=== PATIENT | male | born 1980 | race Caucasian/White ===

== ENCOUNTER 2016-08-22 22:10 | Emergency (ER) | payer MEDICARE, MEDICAID ==
[~2016-08-22] VITALS: Ht 175.3 cm; Wt 68.0 kg
[~2016-08-22 22:10] MED LIST: ACYCLOVIR 400M400 MG PO; AMOXICOT500 MG PO; AMOXIL500 MG PO; BACTRIM DS 8001 TAB PO; BACTROBAN2% TP; CIPRO 500MG TA500 MG PO; CLINDAMYCIN HC300 MG PO; DARVOCET-N 1001 EACH PO; ETODOLAC500 MG PO; FLONASE 50 MCG16 GM; HYDROCORT 1% CR30 GM TP; HYOSCYAMINE0.125 M6 SL; IBUPROFEN800 MG PO; KEFLEX 500MG.500 MG PO; LAMISIL AT JOCK IT1% TP; MEDROL 4MG. DOSE4 MG PO; MINOCYCLINE 10100 MG PO; MOTRIN600 M1 PO; NOMEDS *; NOMEDS XX; NYSTATIN OINTME15 G1 TP; PHENERGAN 25MG.25 M1 PO; PHENERGAN VC +120 ML PO; PREDNISONE20 MG PO; PROMETHAZINE D473 ML PO; QVAR8.7 G1 IH; SEPTRA DS 800 M1 TAB PO; STOMACH PILL PO; TESSALON PERLE100 M1 PO; TESSALON PERLE100 MG PO; TESSALON PERLE200 MG PO; TRAMADOL 50MG T50 MG PO; TYLENOL W/CODEI1 TA2 PO; VIBRAMYCIN 100100 MG PO; VOLTAREN75 MG PO; ZITHROMAX Z PA250 MG PO; ZYRTEC 10MG TAB10 MG PO; [UNRECOGNIZED DRUG - OTHER] TP
--- NOTE | 2016-08-22 23:03 | Emergency Room Report ---
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 N Clinical Suspician of Infection? N Mental Status: 1 - Regular (Normal Baseline) Sepsis Risk:Low Sepsis Risk Have you (or family members/close friends) recently traveled outside the [place]? N If Yes, where/when: Have you had exposure to infectious disease within the past month? N TB? Other? Specify: Source patient, RN notes reviewed, old records Exam Limitations no limitations Comment accidental injury to lt eyebrow hit with spoon with 0.5 cm lac - no eye involvement Cardiac Chest Pain Chest pain indicative of cardiac No Timing/Duration this evening Severity moderate ALLERGIES Coded Allergies: No Known Allergies (04/03/16) Home Medications Active Scripts Benzonatate (Tessalon Perle) 100 MG PO TID #15 SGL Prov: 07/07/16 History Medical History General CAD? No Angina: No [place]: No Hypertension? No Hyperlipidemia? No CHF? No DVT? No PE? No COPD? No Asthma? No Anemia? No GERD? No Gastric ulcers? No GI Bleed? No Hernia? No Thyroid Problems? No Hypothyroidism? No CVA? No Seizures? No Diabetes? No End Stage Renal Disease? No UTI? Yes Stones? No BPH? No GB Disease: No Nephritic Syndrome? No Asplenia? No Hepatitis? No Sickle Cell Disease? No Arthritis? No Migraines? No Cataracts? No Glaucoma? No MRSA? Yes HIV? No TB? No Anxiety? No Depression? No Cancer? No More? No Immunization Hx DT/Tetanus 01/16/12 Flu 2012-FSN Pneumonia Received In Past Surgical Hx Previous Surgery?Y LEFT HAND REPAIR TONGUE SX-STITCHES BILAT EAR TUBES ENDOSCOPY Family History Family Hx Diabetes Yes CAD No Hypertension No Hyperlipidemia No Cancer No TB No Social History Smoking Hx Smoker: Light Tobacco Smoker Tobacco: No Packs/day < 1 Pack Are you/the child exposed to second-hand smoke: No Alcohol Alcohol: No Drugs none Review of Systems All Other Systems Reviewed and Negative Constitutional denies fever Eyes denies drainage ENT denies: ear pain, epistaxis, throat pain. Respiratory denies cough, denies shortness of breath, denies wheezing Cardiovascular denies chest pain, denies palpitations, denies syncope Gastrointestinal denies abdominal pain, denies diarrhea, denies vomiting Genitourinary denies: dysuria, frequency, hesitancy, hematuria. Musculoskeletal denies back pain, denies joint pain, denies joint swelling, denies neck pain Skin see HPI, denies rash, other Psychiatric/Neurological denies seizure Physical Exam Vital Signs Vital Signs Date Time Temp Pulse Resp B/P Pulse O2 O2 Flow FiO2 Ox Delivery Rate 08/22 2257 84 20 134/84 99 08/22 2249 98.1 74 20 134/84 99 - WBC >12,000 or <4,000 or 10% bands? 2 or more SIRS Criteria Met? B/P:134/84 MAP:100 Creatinine >2.0? UA output<0.5ml/kg/hr for 2 hrs? Platelet count >100,000? Lactate >2.0mmol/1? INR >1.2 or PTT > than 60 sec? Evidence of Organ Dysfunction? Provider documented clinical suspician of infection? N Sepsis Criteria Count: 1 Sepsis Risk: Low Sepsis Risk General Appearance no apparent distress Eye Exam - bilateral eye PERRL, bilateral eye EOMI Ear, Nose, Throat normal ENT inspection Neck supple Respiratory Status No: respiratory distress. 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 No Procedures Laceration/Wound Repair Laceration/Wound Repair Risks/benefits discussed with pt/guardian? Yes Tetanus status up to date Wound Location face Wound Length (cm) 0.5 Wound's Depth, Shape superficial Wound Explored no FB identified Risk of retained FB explained to pt/guardian? Yes Irrigated w/ Saline (ccs) 0 Wound Prep Hibiclens, Saline Volume Anesthetic (ccs) 0 Wound Debrided none Wound Repaired With Dermabond Layer Closure No Total Number Sutures 0 Sterile Dressing Applied Yes Splint Applied No Sling Applied No Departure Departure Time of Disposition 2303 Disposition DC Home or Self Care(routine) Clinical Impression Primary Impression: Superficial laceration of face Condition STABLE Patient Instructions DI for Laceration Repair With Dermabond Additional Instructions see pcp if needed Discharge Counseling Counseled pt/family regarding diagnosis, test results, follow up needs ED Critical Care Critical Care No at [phone]
--- NOTE | 2016-08-22 23:03 | Emergency Room Report ---
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 N Clinical Suspician of Infection? N Mental Status: 1 - Regular (Normal Baseline) Sepsis Risk:Low Sepsis Risk Have you (or family members/close friends) recently traveled outside the [place]? N If Yes, where/when: Have you had exposure to infectious disease within the past month? N TB? Other? Specify: Source patient, RN notes reviewed, old records Exam Limitations no limitations Comment accidental injury to lt eyebrow hit with spoon with 0.5 cm lac - no eye involvement Cardiac Chest Pain Chest pain indicative of cardiac No Timing/Duration this evening Severity moderate ALLERGIES Coded Allergies: No Known Allergies (04/03/16) Home Medications Active Scripts Benzonatate (Tessalon Perle) 100 MG PO TID #15 SGL Prov: 07/07/16 History Medical History General CAD? No Angina: No [place]: No Hypertension? No Hyperlipidemia? No CHF? No DVT? No PE? No COPD? No Asthma? No Anemia? No GERD? No Gastric ulcers? No GI Bleed? No Hernia? No Thyroid Problems? No Hypothyroidism? No CVA? No Seizures? No Diabetes? No End Stage Renal Disease? No UTI? Yes Stones? No BPH? No GB Disease: No Nephritic Syndrome? No Asplenia? No Hepatitis? No Sickle Cell Disease? No Arthritis? No Migraines? No Cataracts? No Glaucoma? No MRSA? Yes HIV? No TB? No Anxiety? No Depression? No Cancer? No More? No Immunization Hx DT/Tetanus 01/16/12 Flu 2012-FSN Pneumonia Received In Past Surgical Hx Previous Surgery?Y LEFT HAND REPAIR TONGUE SX-STITCHES BILAT EAR TUBES ENDOSCOPY Family History Family Hx Diabetes Yes CAD No Hypertension No Hyperlipidemia No Cancer No TB No Social History Smoking Hx Smoker: Light Tobacco Smoker Tobacco: No Packs/day < 1 Pack Are you/the child exposed to second-hand smoke: No Alcohol Alcohol: No Drugs none Review of Systems All Other Systems Reviewed and Negative Constitutional denies fever Eyes denies drainage ENT denies: ear pain, epistaxis, throat pain. Respiratory denies cough, denies shortness of breath, denies wheezing Cardiovascular denies chest pain, denies palpitations, denies syncope Gastrointestinal denies abdominal pain, denies diarrhea, denies vomiting Genitourinary denies: dysuria, frequency, hesitancy, hematuria. Musculoskeletal denies back pain, denies joint pain, denies joint swelling, denies neck pain Skin see HPI, denies rash, other Psychiatric/Neurological denies seizure Physical Exam Vital Signs Vital Signs Date Time Temp Pulse Resp B/P Pulse O2 O2 Flow FiO2 Ox Delivery Rate 08/22 2257 84 20 134/84 99 08/22 2249 98.1 74 20 134/84 99 - WBC >12,000 or <4,000 or 10% bands? 2 or more SIRS Criteria Met? B/P:134/84 MAP:100 Creatinine >2.0? UA output<0.5ml/kg/hr for 2 hrs? Platelet count >100,000? Lactate >2.0mmol/1? INR >1.2 or PTT > than 60 sec? Evidence of Organ Dysfunction? Provider documented clinical suspician of infection? N Sepsis Criteria Count: 1 Sepsis Risk: Low Sepsis Risk General Appearance no apparent distress Eye Exam - bilateral eye PERRL, bilateral eye EOMI Ear, Nose, Throat normal ENT inspection Neck supple Respiratory Status No: respiratory distress. 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 No Procedures Laceration/Wound Repair Laceration/Wound Repair Risks/benefits discussed with pt/guardian? Yes Tetanus status up to date Wound Location face Wound Length (cm) 0.5 Wound's Depth, Shape superficial Wound Explored no FB identified Risk of retained FB explained to pt/guardian? Yes Irrigated w/ Saline (ccs) 0 Wound Prep Hibiclens, Saline Volume Anesthetic (ccs) 0 Wound Debrided none Wound Repaired With Dermabond Layer Closure No Total Number Sutures 0 Sterile Dressing Applied Yes Splint Applied No Sling Applied No Departure Departure Time of Disposition 2303 Disposition DC Home or Self Care(routine) Clinical Impression Primary Impression: Superficial laceration of face Condition STABLE Patient Instructions DI for Laceration Repair With Dermabond Additional Instructions see pcp if needed Discharge Counseling Counseled pt/family regarding diagnosis, test results, follow up needs ED Critical Care Critical Care No at [phone]
[2016-08-22 23:25] VITALS: BP 134/84
[2016-10-10] MEDS ORDERED: IMODIUM 2MG. CAP2 MG PO (12:49)
== END 2016-08-22 23:25 | disposition home or self-care (01) ==
LOC: ER 22:10
PROC: 0HQ1XZZ Repair Face Skin, External Approach (ICD-10-PCS; principal; 2016-08-22)
DX: S01.112A Laceration without foreign body of left eyelid and periocular area, initial encounter (principal); W22.8XXA Striking against or struck by other objects, initial encounter; Y92.009 Unspecified place in unspecified non-institutional (private) residence as the place of occurrence of the external cause
CPT/HCPCS: G0168

== ENCOUNTER → 2016-12-08 | Outpatient (CLI) | payer MEDICARE, MEDICAID ==
[~2016-12-08] MED LIST changes: +IMODIUM 2MG. CAP2 MG PO
--- NOTE | 2016-12-08 13:51 | RADIOLOGY REPORT PS360 ---
US RUQ-(ABD LTD)1ORGAN/QUAD/FU COMPARISON: None available HISTORY:Abdominal pain and tenderness, postprandial diarrhea ORDERING PHYSICIAN: Saul Villalobos MD PATIENT AGE: 36 years Sagittal, transverse and decubitus imaging of the gallbladder was performed. GALLBLADDER - No stones are evident. There is no gallbladder wall thickening. Common duct is normal in diameter. Small amount sludge present Liver: Unremarkable Pancreas: Incompletely evaluated due to overlying bowel gas Right kidney: Unremarkable appearing. No hydronephrosis. IMPRESSION: Small amount sludge within the gallbladder otherwise negative right upper quadrant ultrasound..
== END ==
LOC: RAD 08:18
DX: R10.11 Right upper quadrant pain (principal)

== ENCOUNTER 2017-03-28 10:56 | Emergency (ER) | payer MEDICARE, MEDICAID ==
[~2017-03-28] VITALS: Ht 172.7 cm; Wt 75.8 kg
--- NOTE | 2017-03-28 11:09 | Urgent Treatment Center Report ---
History of Present Issue Date/Time Seen by Provider 03/28/17 1109 Visit Reason Pt arrived:Walked Presenting Problem:PT STATES HE HAS A KNOT IN THE CENTER OF HIS ABDOMEN THAT HE NOTICED THIS MORNING Location if Accident: Onset of symptoms date/time:/ or onset unknown for:MEDICAL HX UNKNOWN Have you (or family members/close friends) recently traveled outside the [place]? N If Yes, where/when: Have you had exposure to infectious disease within the past month? TB? Other? Specify: c/o "a knot in my stomach". First noticed this morning when getting out of bed. hasn't noticed before. Very poor historian. Painful with cough. Cough x weeks associated w/ rhinorrhea, PND, sneezing, nasal congestion. Denies SOA, wheezing, sputum. + tobacco use. Unsure if hx of COPD. Unsure if febrile. Hasn't felt bad. Working without any problems. Unsure if he takes anything for breathing. Source patient Exam Limitations no limitations ALLERGIES Coded Allergies: No Known Allergies (09/14/16) History Medical History General CAD? No Angina: No [place]: No Hypertension? No Hyperlipidemia? No CHF? No DVT? No PE? No COPD? No Asthma? No Anemia? No GERD? No Gastric ulcers? No GI Bleed? No Hernia? No Thyroid Problems? No Hypothyroidism? No CVA? No Seizures? No Diabetes? No UTI? Yes Stones? No BPH? No GB Disease: No Nephritic Syndrome? No Asplenia? No Hepatitis? No Sickle Cell Disease? No Arthritis? No Migraines? No Cataracts? No Glaucoma? No MRSA? Yes HIV? No TB? No Anxiety? No Depression? No Cancer? No More? No Immunization HX DT/Tetanus Unknown Flu Refused Pneumonia Never Had Surgical Hx Previous Surgery?Y LEFT HAND REPAIR TONGUE SX-STITCHES BILAT EAR TUBES ENDOSCOPY Family History Family HX Diabetes Yes CAD No Hypertension No Hyperlipidemia No Cancer No TB No Social History Smoking Hx Smoker: Current Every Day Smoker Tobacco: Yes Type Cigarettes Packs/day < 1 Pack Alcohol Alcohol: No Review of Systems All Other Systems Reviewed and Negative Constitutional see HPI Eyes denies drainage ENT see HPI. denies: ear pain, ear discharge, throat pain, throat swelling. Respiratory see HPI Cardiovascular denies chest pain Gastrointestinal denies abdominal pain, denies diarrhea, denies nausea, denies vomiting Genitourinary denies: dysuria. Musculoskeletal denies other (aches) Skin denies rash Psychiatric/Neurological denies other (dizziness) Physical Exam Vital Signs Vital Signs Date Time Temp Pulse Resp B/P Pulse O2 O2 Flow FiO2 Ox Delivery Rate 03/28 1107 97.9 95 20 131/91 99 General Appearance normal appearance, no apparent distress Ear, Nose, Throat normal ENT inspection Neck non-tender, supple Respiratory Status Yes: trachea midline, chest symmetrical, non tender chest, non productive cough. No: respiratory distress, use of accessory muscles, pain on inspiration, pain on expiration, productive cough. Lung Sounds anterior: lungs clear. posterior: lungs clear. bilateral: lungs clear. Cardiovascular regular rate/rhythm, no peripheral edema, no murmur Gastrointestinal normal bowel sounds, non tender, soft, no organomegaly, no pulsatile mass, no guarding, no rebound, hernia (ventral,soft,nontndr,reduces) Back gait normal Neurologic alert Mental status normal mood/affect Skin normal color, warm/dry Lymphatic no adenopathy Medical Decision Making LABS/Meds/Orders Pt receiving controlled substance in ED? No Consult MD Physician Consult Consult/PCP Dr. Villalobos's office Time Called 1135 Reason to receive pt hx Comments No answer Departure Departure Time of Disposition 1141 Disposition DC Home or Self Care(routine) Clinical Impression Primary Impression: Cough Secondary Impressions: Ventral hernia Qualifiers: Obstruction and gangrene presence: without obstruction or gangrene Qualified Code: K43.9 - Ventral hernia without obstruction or gangrene Condition STABLE Referrals Saul Villalobos MD (Family) Call today and schedule follow up appointment for cough and abdominal hernia Patient Instructions DI for Cough -- Adult, DI for Ventral Hernia Additional Instructions Avoid heavy lifting Splint stomach while coughing * Bromfed may cause drowsiness. Know how it effects you (or your child) before driving, caring for small children, or sending your child to school. No other antihistamines/allergy medications while taking bromfed. * Sleep elevated * Follow up with primary care. Return immediately for new or worsening symptoms, especially abdominal pain Discharge Counseling Counseled pt/family regarding diagnosis, medications/RX, home care, follow up needs at 1142
[2017-03-28 11:47] VITALS: BP 131/91
== END 2017-03-28 11:48 | disposition home or self-care (01) ==
LOC: UTC 10:56
DX: K43.9 Ventral hernia without obstruction or gangrene (principal); R05 Cough; Z72.0 Tobacco use

== ENCOUNTER 2017-03-29 14:30 | Emergency (ER) | payer MEDICARE, MEDICAID ==
[~2017-03-29] VITALS: Ht 172.7 cm; Wt 65.8 kg
--- NOTE | 2017-03-29 15:01 | Emergency Room Report ---
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 N Clinical Suspician of Infection? N Mental Status: 1 - Regular (Normal Baseline) Sepsis Risk:Low Sepsis Risk Have you (or family members/close friends) recently traveled outside the [place]? N If Yes, where/when: Have you had exposure to infectious disease within the past month? TB? Other? Specify: Patient with hernia for several months. Seen at [facility] yesterday and was reducible on exam. Seen by PCP Loida at Dr. Villalobos's office today and here as well for same complaint. Pain is unchanged over last few months. He is not taking anything for pain. No fever or vomiting. Moving bowels well. No change in discomfort since yesterday at [facility]. ALLERGIES Coded Allergies: No Known Allergies (09/14/16) History Medical History General CAD? No Angina: No [place]: No Hypertension? No Hyperlipidemia? No CHF? No DVT? No PE? No COPD? No Asthma? No Anemia? No GERD? No Gastric ulcers? No GI Bleed? No Hernia? No Thyroid Problems? No Hypothyroidism? No CVA? No Seizures? No Diabetes? No End Stage Renal Disease? No UTI? Yes Stones? No BPH? No GB Disease: No Nephritic Syndrome? No Asplenia? No Hepatitis? No Sickle Cell Disease? No Arthritis? No Migraines? No Cataracts? No Glaucoma? No MRSA? Yes HIV? No TB? No Anxiety? No Depression? No Cancer? No More? No Immunization Hx Ped.Immunizations UTD Yes DT/Tetanus Unknown Flu Refused Pneumonia Never Had Surgical Hx Previous Surgery?Y LEFT HAND REPAIR TONGUE SX-STITCHES BILAT EAR TUBES ENDOSCOPY Family History Family Hx Diabetes Yes CAD No Hypertension No Hyperlipidemia No Cancer No TB No Social History Smoking Hx Smoker: Current Every Day Smoker Tobacco: Yes Type Cigarettes Packs/day < 1 Pack Alcohol Alcohol: No Review of Systems All Other Systems Reviewed and Negative Gastrointestinal see HPI Physical Exam Vital Signs Vital Signs Date Time Temp Pulse Resp B/P Pulse O2 O2 Flow FiO2 Ox Delivery Rate 03/29 1439 98.3 71 18 148/90 97 General Appearance normal appearance, WD/WN, no apparent distress Eye Exam - bilateral eye normal exam, bilateral eye PERRL, bilateral eye EOMI Neck normal inspection, non-tender, supple, full range of motion Respiratory Status Yes: trachea midline, chest symmetrical, non tender chest. No: respiratory distress, tender on palpation, use of accessory muscles, pain on inspiration, pain on expiration, productive cough, non productive cough. Lung Sounds bilateral: normal breath sounds, lungs clear. Cardiovascular normal exam, regular rate/rhythm, no peripheral edema, no gallop, no JVD, no murmur, no rub, normal peripheral pulses Gastrointestinal hernia, Reducible palpable ventral hernia, very soft, no masses at all. No tenderness. Excellent BS throughout. Strength 5 Upper Ext (L), 5 Upper Ext (R), 5 Lower Ext (L), 5 Lower Ext (R) Neurologic alert, normal exam, no motor/sensory deficits, oriented x 3 Skin intact, normal color, warm/dry Medical Decision Making LABS/Meds/Orders Pt receiving controlled substance in ED? No Progress ED Progress Notes Date 03/29/17 Time 1459 Comment [facility] record reviewed from 03/28/17. RN's made an appointment for patient to see Dr. Giraldo tomorrow, 03/30/17 at 10:30 AM. Departure Departure Time of Disposition 1500 Disposition DC Home or Self Care(routine) Clinical Impression Primary Impression: Ventral hernia Condition STABLE Referrals Rigoberto Giraldo MD Patient Instructions Ventral Hernia Additional Instructions See Dr. Giraldo, surgeon, at 10:30 tomorrow morning, 03/30/17. Tylenol as needed, heating pad on low setting as needed. Discharge Counseling Counseled pt/family regarding diagnosis, medications/RX, home care, follow up needs ED Critical Care Critical Care No at 1501
--- NOTE | 2017-03-29 15:01 | Emergency Room Report ---
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 N Clinical Suspician of Infection? N Mental Status: 1 - Regular (Normal Baseline) Sepsis Risk:Low Sepsis Risk Have you (or family members/close friends) recently traveled outside the [place]? N If Yes, where/when: Have you had exposure to infectious disease within the past month? TB? Other? Specify: Patient with hernia for several months. Seen at [facility] yesterday and was reducible on exam. Seen by PCP Loida at Dr. Villalobos's office today and here as well for same complaint. Pain is unchanged over last few months. He is not taking anything for pain. No fever or vomiting. Moving bowels well. No change in discomfort since yesterday at [facility]. ALLERGIES Coded Allergies: No Known Allergies (09/14/16) History Medical History General CAD? No Angina: No [place]: No Hypertension? No Hyperlipidemia? No CHF? No DVT? No PE? No COPD? No Asthma? No Anemia? No GERD? No Gastric ulcers? No GI Bleed? No Hernia? No Thyroid Problems? No Hypothyroidism? No CVA? No Seizures? No Diabetes? No End Stage Renal Disease? No UTI? Yes Stones? No BPH? No GB Disease: No Nephritic Syndrome? No Asplenia? No Hepatitis? No Sickle Cell Disease? No Arthritis? No Migraines? No Cataracts? No Glaucoma? No MRSA? Yes HIV? No TB? No Anxiety? No Depression? No Cancer? No More? No Immunization Hx Ped.Immunizations UTD Yes DT/Tetanus Unknown Flu Refused Pneumonia Never Had Surgical Hx Previous Surgery?Y LEFT HAND REPAIR TONGUE SX-STITCHES BILAT EAR TUBES ENDOSCOPY Family History Family Hx Diabetes Yes CAD No Hypertension No Hyperlipidemia No Cancer No TB No Social History Smoking Hx Smoker: Current Every Day Smoker Tobacco: Yes Type Cigarettes Packs/day < 1 Pack Alcohol Alcohol: No Review of Systems All Other Systems Reviewed and Negative Gastrointestinal see HPI Physical Exam Vital Signs Vital Signs Date Time Temp Pulse Resp B/P Pulse O2 O2 Flow FiO2 Ox Delivery Rate 03/29 1439 98.3 71 18 148/90 97 General Appearance normal appearance, WD/WN, no apparent distress Eye Exam - bilateral eye normal exam, bilateral eye PERRL, bilateral eye EOMI Neck normal inspection, non-tender, supple, full range of motion Respiratory Status Yes: trachea midline, chest symmetrical, non tender chest. No: respiratory distress, tender on palpation, use of accessory muscles, pain on inspiration, pain on expiration, productive cough, non productive cough. Lung Sounds bilateral: normal breath sounds, lungs clear. Cardiovascular normal exam, regular rate/rhythm, no peripheral edema, no gallop, no JVD, no murmur, no rub, normal peripheral pulses Gastrointestinal hernia, Reducible palpable ventral hernia, very soft, no masses at all. No tenderness. Excellent BS throughout. Strength 5 Upper Ext (L), 5 Upper Ext (R), 5 Lower Ext (L), 5 Lower Ext (R) Neurologic alert, normal exam, no motor/sensory deficits, oriented x 3 Skin intact, normal color, warm/dry Medical Decision Making LABS/Meds/Orders Pt receiving controlled substance in ED? No Progress ED Progress Notes Date 03/29/17 Time 1459 Comment [facility] record reviewed from 03/28/17. RN's made an appointment for patient to see Dr. Giraldo tomorrow, 03/30/17 at 10:30 AM. Departure Departure Time of Disposition 1500 Disposition DC Home or Self Care(routine) Clinical Impression Primary Impression: Ventral hernia Condition STABLE Referrals Rigoberto Giraldo MD Patient Instructions Ventral Hernia Additional Instructions See Dr. Giraldo, surgeon, at 10:30 tomorrow morning, 03/30/17. Tylenol as needed, heating pad on low setting as needed. Discharge Counseling Counseled pt/family regarding diagnosis, medications/RX, home care, follow up needs ED Critical Care Critical Care No at 1501
[2017-03-29 15:03] VITALS: BP 148/90
== END 2017-03-29 15:03 | disposition home or self-care (01) ==
LOC: ER 14:30
DX: K43.9 Ventral hernia without obstruction or gangrene (principal); Z72.0 Tobacco use

== ENCOUNTER 2017-04-20 10:49 | Emergency (ER) | payer MEDICARE, MEDICAID ==
[~2017-04-20] VITALS: Ht 172.7 cm; Wt 70.8 kg
[2017-04-20] MEDS ORDERED: MEDROL 4MG. DOSE4 MG PO (11:26)
[2017-04-20] MEDS ORDERED: ZITHROMAX Z PA250 MG PO (11:26)
--- NOTE | 2017-04-20 11:27 | Urgent Treatment Center Report ---
History of Present Issue Date/Time Seen by Provider 04/20/17 1114 Visit Reason Pt arrived:Walked Presenting Problem:PT STATES BODY ACHES THAT BEGAN THIS MORNING Location if Accident: Onset of symptoms date/time:04/20/17/ or onset unknown for:MEDICAL HX UNKNOWN Have you (or family members/close friends) recently traveled outside the [place]? N If Yes, where/when: Have you had exposure to infectious disease within the past month? TB? Other? Specify: Patient state that he has been having sinus pain and pressure for over a week and coughing up greenish yellow stuff for the last 2 days and today he began having body aches and feeling tired State that he has continued to feel worse as the day went on so he came in to get checked out ALLERGIES Coded Allergies: No Known Allergies (09/14/16) History Medical History General CAD? No Angina: No [place]: No Hypertension? No Hyperlipidemia? No CHF? No DVT? No PE? No COPD? No Asthma? No Anemia? No GERD? No Gastric ulcers? No GI Bleed? No Hernia? No Thyroid Problems? No Hypothyroidism? No CVA? No Seizures? No Diabetes? No UTI? Yes Stones? No BPH? No GB Disease: No Nephritic Syndrome? No Asplenia? No Hepatitis? No Sickle Cell Disease? No Arthritis? No Migraines? No Cataracts? No Glaucoma? No MRSA? Yes HIV? No TB? No Anxiety? No Depression? No Cancer? No More? No Immunization HX DT/Tetanus Unknown Flu Refused Pneumonia Never Had Surgical Hx Previous Surgery?Y LEFT HAND REPAIR TONGUE SX-STITCHES BILAT EAR TUBES ENDOSCOPY Family History Family HX Diabetes Yes CAD No Hypertension No Hyperlipidemia No Cancer No TB No Social History Smoking Hx Smoker: Current Every Day Smoker Tobacco: Yes Type Cigarettes Packs/day < 1 Pack Alcohol Alcohol: No Review of Systems All Other Systems Reviewed and Negative ENT nose pain, nose congestion, throat pain. Respiratory cough, denies shortness of breath, denies stridor, denies wheezing Physical Exam Vital Signs Vital Signs Date Time Temp Pulse Resp B/P Pulse O2 O2 Flow FiO2 Ox Delivery Rate 04/20 1100 98.1 102 20 119/93 94 General Appearance normal appearance, WD/WN, no apparent distress Ear, Nose, Throat sinus pain/drainage, nasal congestion, throat mildly red irritated, drainage noted tenderness noted maxillary sinuses Respiratory Status Yes: trachea midline, chest symmetrical, non tender chest. No: respiratory distress. Cardiovascular normal exam, regular rate/rhythm, no peripheral edema Neurologic alert, finisher hot strip II-XII nml as tested, normal exam, no motor/sensory deficits, oriented x 3 Medical Decision Making LABS/Meds/Orders Pt receiving controlled substance in ED? No Departure Departure Time of Disposition 1125 Disposition DC Home or Self Care(routine) Clinical Impression Primary Impression: Upper respiratory infection Qualifiers: URI type: unspecified URI Qualified Code: J06.9 - Acute upper respiratory infection, unspecified Condition STABLE Referrals Saul Villalobos MD (Family) Patient Instructions Cough, DI for Nasal Congestion Discharge Counseling Counseled pt/family regarding diagnosis, medications/RX, home care, follow up needs Prescriptions Current Visit Scripts Azithromycin (Zithromycin (Z-AMINTA) 250MG Tab) 250 MG PO DAILY #6 TAB TAKE TWO (2) TABLETS ON DAY 1, THEN ONE (1) TABLET DAY #2 THRU #5 Methylprednisolone (Medrol Dose Aminta) 4 MG PO UD #1 AMINTA TAKE DIRECTED ON PACKAGING at 1126
[2017-04-20 11:34] VITALS: BP 119/93
== END 2017-04-20 11:34 | disposition home or self-care (01) ==
LOC: UTC 10:49
DX: J06.9 Acute upper respiratory infection, unspecified (principal); F17.210 Nicotine dependence, cigarettes, uncomplicated

== ENCOUNTER 2017-05-12 15:14 | Emergency (ER) | payer MEDICARE, MEDICAID ==
[~2017-05-12] VITALS: Ht 172.7 cm; Wt 84.4 kg
[2017-05-12] MEDS ORDERED: BROMFED DM COU118 ML PO (16:04)
--- NOTE | 2017-05-12 16:06 | Urgent Treatment Center Report ---
History of Present Issue Date/Time Seen by Provider 05/12/17 9715 Visit Reason Pt arrived:Walked Presenting Problem:PT C/O OF KNOT INSIDE OF HIS STOMACH AND SAYS HE IS STAYING TIRED Location if Accident: Onset of symptoms date/time:05/12/1702/19/1000 or onset unknown for: Have you (or family members/close friends) recently traveled outside the [place]? N If Yes, where/when: Have you had exposure to infectious disease within the past month? TB? Other? Specify: Patient state that he has not been feeling well States that he has been having cough, sorethroat and nose running States that when he was coughing he noticed he had a small "knot" that would pop out in his stomach and it worred him States that he is not having any pain there in the abdomen but thought he would come in and get checked ALLERGIES Coded Allergies: No Known Allergies (09/14/16) Home Medications Active Scripts Azithromycin (Zithromycin (Z-MURPHY) 250MG Tab) 250 MG PO DAILY #6 TAB Prov: 04/20/17 Methylprednisolone (Medrol Dose Murphy) 4 MG PO UD #1 MURPHY Prov: 04/20/17 History Medical History General CAD? No Angina: No [place]: No Hypertension? No Hyperlipidemia? No CHF? No DVT? No PE? No COPD? No Asthma? No Anemia? No GERD? No Gastric ulcers? No GI Bleed? No Hernia? No Thyroid Problems? No Hypothyroidism? No CVA? No Seizures? No Diabetes? No UTI? Yes Stones? No BPH? No GB Disease: No Nephritic Syndrome? No Asplenia? No Hepatitis? No Sickle Cell Disease? No Arthritis? No Migraines? No Cataracts? No Glaucoma? No MRSA? Yes HIV? No TB? No Anxiety? No Depression? No Cancer? No More? No Immunization HX DT/Tetanus Unknown Flu Refused Pneumonia Never Had Surgical Hx Previous Surgery?Y LEFT HAND REPAIR TONGUE SX-STITCHES BILAT EAR TUBES ENDOSCOPY Family History Family HX Diabetes Yes CAD No Hypertension No Hyperlipidemia No Cancer No TB No Social History Smoking Hx Smoker: Current Every Day Smoker Tobacco: Yes Type Cigarettes Packs/day < 1 Pack Alcohol Alcohol: No Review of Systems All Other Systems Reviewed and Negative Constitutional chills, denies fever, weakness ENT nose congestion, throat pain. denies: ear pain. Respiratory cough, denies shortness of breath, denies wheezing Cardiovascular denies chest pain, denies syncope Gastrointestinal denies abdominal pain Physical Exam Vital Signs Vital Signs Date Time Temp Pulse Resp B/P Pulse O2 O2 Flow FiO2 Ox Delivery Rate 05/12 1522 97.9 98 20 124/74 97 General Appearance normal appearance, WD/WN Ear, Nose, Throat Throat red, no exudate, sinuses drainage clear in color Respiratory Status Yes: trachea midline, chest symmetrical, non tender chest. No: respiratory distress. Lung Sounds bilateral: normal breath sounds, lungs clear. Cardiovascular normal exam, regular rate/rhythm Gastrointestinal normal bowel sounds, normal exam, non tender, no guarding, no rebound, hernia, advised that when he coughs at times a "knot" pops out in his stomach, denies pain in the abdomen, state that he is not sure if he had a hernia or not, no pulsitile mass observed, slight raised area in center of abdomen above umbilicius when patient would strain to raise up consistant with hernia, Neurologic alert, normal exam, oriented x 3 Medical Decision Making LABS/Meds/Orders Pt receiving controlled substance in ED? No Progress [facility] Progress Notes Comment Patient unable to advise if he had a hernia or not, bradley educated and advised to follow up with his family doctor if area is not giving him any pain or discomfort Departure Departure Time of Disposition 1602 Disposition DC Home or Self Care(routine) Clinical Impression Primary Impression: Viral upper respiratory infection Condition STABLE Referrals Saul Villalobos MD (Family): 2 Days-Call Office On sunday if symptoms persist Patient Instructions Cough, DI for Cough -- Adult, DI for Nasal Congestion, Sore Throat Additional Instructions * Monitor Temp. Tylenol and/or Ibuprofen as needed. ER if fever is no less than 101 despite alternating Tylenol and Ibuprofen * Encourage fluids, water, Gatorade, powerade, pedialyte if infant/toddler/or child * Warm salt water gargles for throat irritation *Warm fluids *Sore throat lozenges *Sleep elevated *humidifier or vaporizer *Flonase 2 sprays each nostril daily but may take 2-3 days to notice improvement with it *Bromfed may cause drowsiness. Know how it effect you or your child. Before driving, caring for small children or sending your child to school Follow up IMMEDIATELY for new or worsening of symptoms OR no noticeable improvement over the next 48-72 hours. 911 immediately for any life threatening symptoms such as chest pain or difficulty breathing Discharge Counseling Counseled pt/family regarding diagnosis, medications/RX, home care, follow up needs Prescriptions Current Visit Scripts D-METHORPHAN HB/P-EPD HCL/BPM (Bromfed Dm Cough Syrup) 10 ML PO Q4HP PRN cough #120 SYR at 1602
[2017-05-12 16:07] VITALS: BP 124/74
--- OUTSIDE RECORDS SUMMARY | 2017-05-18 15:16 | External Medical Summary Rpt | CCD ---
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 -1 .0 IN 35 CK ti ET 31 9- 8- 00 IC 66 ER ve MCELROY 58 20 20 ZI 85 08 08 PH JE NE 8 AR FF MA RE VC CY Y -C OD EI NE SY RU P 60 06 06 00 18 5 RI 73 No Ac 25 -0 -1 0. TE 59 t ti 80 3- 2- 00 93 Av ve 23 20 20 0 AI ai 91 08 08 D la 6 PH bl AR e M #3 93 8 DE 00 02 04 00 75 5 CL 16 No Ac XA 05 -2 -0 .0 IN 55 t ti ME 43 3- 7- 00 IC 03 Av ve TH 17 20 20 ai 76 08 08 PH la ON 3 AR bl E MA e 0. CY 5 MG /5 ML LI Q MU 63 02 04 00 20 10 CL 16 No Ac CI 82 -2 -0 .0 IN 55 t ti NE 40 3- 7- 00 IC 19 Av ve X 05 20 20 ai DM 62 08 08 PH la 0 AR bl ER MA e CY 60 0- 30 MG TA BL ET NA 00 02 03 00 40 20 RI 71 No Ac IL 09 -0 -2 .0 TE 92 t ti OX 30 9- 6- 00 98 Av ve EN 14 20 20 AI ai 90 08 08 D la 50 1 PH bl 0 AR e MG M #3 TA 93 BL 8 ET 60 02 03 00 18 5 RI 72 No Ac 25 -1 -2 0. TE 03 t ti 80 7- 6- 00 87 Av ve 23 20 20 0 AI ai 91 08 08 D la 6 PH bl AR e M #3 93 8 64 02 03 00 15 21 RI 72 No Ac 45 -2 -2 .0 TE 11 t ti 50 1- 6- 00 28 Av ve 99 20 20 AI ai 39 08 08 D la 4 PH bl AR e M #3 93 8 Immunization Name Date Rout CVX Reac Dose Comm Prov Is Faci e tion ent ider Refu lity Give sed n TDAP 02-2 115 ANIKET No ANIKET 7-20 SAROJ SAROJ VACC 17 [facility] YRS/ INC INC > IM IIV4 10-0 158 [facility] 8-20 O O VACC 15 DIST DIST RICT RICT SPLI T HLTH HLTH VIRU S DEPT DEPT 0.5 [facility] M[facility] ML DOS FOR IM USE TDAP 06-1 115 ANIKET No ANIKET 2-20 SAROJ SAROJ VACC 12 [facility] INE 7 [facility]P HOSP YRS/ INC INC > IM Vital Signs 06-25-2013 23:51 Name Value Interpretat Reference Comment ion Range BP 82 mm[Hg] Diastolic BP Systolic 146 mm[Hg] Heart 99 /min Rate/Pulse O2% 96 % Respiratory 20 /min Rate 11-27-2012 20:40 Name Value Interpretat Reference Comment ion Range BP 83 mm[Hg] Diastolic BP Systolic 131 mm[Hg] Heart 71 /min Rate/Pulse O2% 97 % Respiratory 20 /min Rate 11-25-2012 21:15 Name Value Interpretat Reference Comment ion Range BP 80 mm[Hg] Diastolic BP Systolic 130 mm[Hg] Heart 72 /min Rate/Pulse O2% 96 % Respiratory 18 /min Rate 11-25-2012 20:43 Name Value Interpretat Reference Comment ion Range BP 99 mm[Hg] Diastolic BP Systolic 135 mm[Hg] Heart 95 /min Rate/Pulse O2% 100 % Respiratory 20 /min Rate Procedures Procedure DOS Code Location Performer Comment OPHTH 55364 [facility] 7 XM&EVAL COMPRHNSV ESTAB PT 1/> 02108 [facility] ABDOMINAL 7 [facility] REAL INC INC TIME W/IMAGE LIMITED COMPRE 16809 [facility] AUDIOMETR 7 Y THRESHOLD EVAL SP RECOGNIJ TYMPANOME 70513 [facility] TRY 7 HOSPITAL G0463 N[facility]I NINI OUTPATIEN 7 [facility] T CLIN INC INC VISIT ASSESS & MGMT PT HOSPITAL G0463 [facility] OUTPATIEN 7 [facility] CLIN INC INC VISIT ASSESS & MGMT PT RADEX 74301 [facility] ERIC FOOT 7 MEDICAL COMPLETE IMAGING MINIMUM 3 ASS VIEWS IM ADM 92222 [facility] PRQ ID 7 [facility] SUBQ/IM INC INC NJXS 1 VACCINE TDAP 84806 [facility] VACCINE 7 7 [facility] YRS/> IM INC INC TYMPANOST 21472 [facility] ALEX 7 PHYSICIAN PHYSICIAN GENERAL [place] [address] [facility] INFUSION 7 [facility] THERAPY/P INC INC ROPHYLAXI S /DX 1ST TO 1 HR THERAPEUT 91108 [facility] IC 7 [facility] INJECTION INC INC IV PUSH EACH NEW DRUG ANES 68097 [facility] XTRNL MID 7 ANESTH & INNER OF THE EAR W/[place] [address] [facility] INFUSION 7 [facility] THERAPY INC INC PROPHYLAX IS/DX EA HOUR DEBRIDEME 06634 [facility] NT 7 PHYSICIAN MASTOIDEC S GROUP EFE CAVITY CMPLX COMPRE 19855 [facility] AUDIOMETR 7 Y THRESHOLD EVAL SP RECOGNIJ TYMPANOME 85361 [facility] TRY 7 SIMPLE 66478 N[facility] ALNAVIJ REPAIR 7 [facility] F/E/E/N/L INC /M 2.5CM/< [place] [address] [facility] STREPTOCO 6 [facility] CCUS INC INC GROUP A IADNA 96795 [facility] CHLAMYDIA 6 [facility] INC INC PNEUMONIA E AMPLIFIED PROBE TQ IADNA NOS 17200 [facility] 6 [facility] AMPLIFIED INC INC PROBE TQ EACH ORGANISM CUL BACT 14447 [facility] XCPT 6 [facility] URINE INC INC BLOOD/STO OL AEROBIC ISOL IADNA 15426 [facility] MYCOPLSM 6 [facility] PNEUMONIA INC INC E AMPLIFIED PROBE TQ RADIOLOGI 91925 [facility] C EXAM 6 [facility] CHEST 2 INC INC VIEWS FRONTAL&L ATERAL IADNA 08957 N[facility] TER[facility] RESPIRATR 6 [facility] Y PROBE & INC INC REV TRNSCR 07-30 [facility] THERAPEUT 01453 FAMILY CHELA IC 6 CARE TAR PROPHYLAC ASSOCIATE TIC/DX S INJECTION SUBQ/IM INJECTION J1030 FAMILY CHELA 6 CARE TAR METHYLPRE ASSOCIATE DNISOLONE S ACETATE 40 MG CULTURE 40722 COMBINED COMBINED BACTERIAL 6 PHYSICIAN PHYSICIAN S LA S LA QUANTTATI VE COLONY COUNT URINE RADEX 33745 [place] ALL FINGR 6 MEDICAL MINIMUM 2 IMAGING VIEWS ASS IADNA 65981 [facility] CHLAMYDIA [facility] DEPT TRACHOMAT MEND[facility] IS AMPLIFIED PROBE TQ IADNA 67921 [facility] NEISSERIA 6 [facility] DEPT GONORRHOE [facility] AE AMPLIFIED PROBE TQ SYPHILIS 57550 [facility] TEST 6 [facility] NON-TREPO [facility] DEPT NEMAL [facility] ANTIBODY QUAL HEPATITIS 32067 [facility] C [facility] ANTIB[facility] HLTH DEPT [facility] RAPID 29927 [facility] TORRES MAR DESENSITI 6 PARTNERS ZATION [facility] [place] PROCEDURE CO EACH HOUR BRNCDILAT 72351 [facility] MAR RSPSE 6 PARTNERS SPMTRY OF [place] PRE&POST- CO BRNCDILAT ADMN DEMO&/WAQAR 00443 [facility] MAR L OF PT 6 PARTNERS UTILIZ [facility] [place] AERSL CO GEN/NEB/I NHLR/IP NITRIC 44190 [facility] MAR OXIDE 6 [facility] [place] GAS CO DETERMINA TION PREPJ& 61289 [facility] TORRES MAR ALLERGEN 6 PARTNERS IMMUNOTHE OF [place] RAPY CO 1/CENTER PUNCH OPERATOR ANTIGEN SMPL 29996 TORSTEN RONNIE REPAIR 6 PHYSICIAN MADDIE SCALP/NEC S, PLLC K/AX/SHERLY T/TRUNK 2.6-7.5CM PROF [facility] 36204 ALLERGY TORRES MAR ALLG 6 PARTNERS IMMNTX X OF [place] W/PRV CO ALLGIC XTRCS NJXS PROF [facility] 04131 ALLERGY TORRES MAR ALLG 6 PARTNERS IMMNTX X OF [place] W/PRV CO ALLGIC XTRCS NJXS PROF [facility] 84088 ALLERGY TORRES MAR ALLG 6 PARTNERS IMMNTX X OF [place] W/PRV CO ALLGIC XTRCS NJXS BRNCDILAT 55912 ALLERGY TORRES MAR RSPSE 6 PARTNERS SPMTRY OF [place] PRE&POST- CO BRNCDILAT ADMN NITRIC 85391 ALLERGY TORRES MAR OXIDE 6 PART[facility]ERS [place] GAS CO DETERMINA TION DEMO&/WAQAR 28879 ALLERGY TORRES MAR L OF PT 6 PARTNERS [facility] [place] AERSL CO GEN/NEB/I NHLR/IP RADIOLOGI 59511 [facility] C EXAM 6 MEDICAL SARANYA CHEST 2 IMAGING VIEWS ASS FRONTAL&L ATERAL PROF [facility] 16246 ALLERGY TORRES MAR ALLG 6 PARTNERS IMMNTX X OF [place] W/PRV CO ALLGIC XTRCS NJXS PROF SVCS 33404 ALLERGY TORRES MAR ALLG 6 PARTNERS IMMNTX X OF [place] W/PRV [place] [address] ALLERGY TORRES MAR ALLG 6 PARTNERS IMMNTX X OF [place] W/PRV CO ALLGIC XTRCS NJXS RADIOLOGI 94250 [facility] C EXAM 6 MEDICAL SARANYA CHEST 2 IMAGING VIEWS ASS FRONTAL&L ATERAL BLOOD 19837 FAMILY FAMILY COUNT 6 CARE CARE COMPLETE ASSOCIATE ASSOCIATE AUTO&AUTO S S DIFRNTL WBC PREPJ& 66865 [facility] TORRES MAR ALLERGEN 6 PARTNERS IMMUNOTHE OF [place] RAPY CO 1/CENTER PUNCH OPERATOR ANTIGEN BLOOD 77621 FAMILY FAMILY COUNT 6 CARE CARE COMPLETE ASSOCIATE ASSOCIATE AUTO&AUTO S S DIFRNTL WBC BRNCDILAT 40232 [facility] TORRES MAR RSPSE 6 PARTNERS SPMTRY OF [place] PRE&POST- CO BRNCDILAT ADMN PERCUTANE 28325 ALLERGY TORRES MAR OUS TESTS 6 PARTNERS [facility] [place] W/ALLERGE CO SABRINA EXTRACTS INTRACUTA 82966 ALLERGY TORRES MAR NEOUS 6 PARTNERS TESTS OF [place] W/ALLERGE CO SABRINA EXTRACTS DEMO&/WAQAR 70730 ALLERGY TORRES MAR L OF PT 6 PARTNERS UTILIZ [place] AERSL CO GEN/NEB/I NHLR/IP RADIOLOGI 39305 [facility] ALL C 6 MEDICAL EXAMINATI IMAGING ON CHEST ASS SINGLE VIEW FRONTAL BLOOD 33547 FAMILY FAMILY COUNT 6 CARE CARE COMPLETE ASSOCIATE ASSOCIATE AUTO&AUTO S S DIFRNTL WBC BLOOD 90235 FAMILY ISATU COUNT 6 CARE CAPO COMPLETE ASSOCIATE AUTO&AUTO S DIFRNTL WBC COLLECTIO 95467 FAMILY FAMILY N 6 CARE CARE CAPILLARY ASSOCIATE ASSOCIATE BLOOD S S SPECIMEN BLOOD 14151 FAMILY CROWDY COUNT 6 CARE CRI COMPLETE ASSOCIATE AUTO&AUTO S DIFRNTL WBC CULTURE 54701 COMBINED COMBINED BACTERIAL 6 PHYSICIAN PHYSICIAN S LA S LA QUANTTATI VE COLONY COUNT URINE RADIOLOGI 15044 [place] COR[place] ALL C 6 MEDICAL EXAMINATI IMAGING ON FOOT 2 ASS VIEWS DETERMINA 57324 MICHELA ABERNATHY TION 6 GRE GRE REFRACTIV E STATE BLOOD 97534 FAMILY FAMILY COUNT 5 CARE CARE COMPLETE ASSOCIATE ASSOCIATE AUTO&AUTO S S DIFRNTL WBC RADIOLOGI 29588 [facility] C EXAM 5 [facility] CHEST 2 INC INC VIEWS FRONTAL&L ATERAL IIV4 VACC 68710 [facility] VIRUS 0.5 HLTH DEPT HLTH DEPT ML DOS [place] [address] N[facility]I TER[facility] LIPASE 5 [facility] INC INC RADEX 53110 [facility] ABDOMEN 5 MEDICAL DELMIS COMPL IMAGING W/DCBTS&/ ASS ERC VIEWS BLOOD 09394 N[facility]I TER[facility] COUNT 5 [facility] COMPLETE INC INC AUTO&[place] [address] N[facility]I TER[facility] AMYLASE 5 [place] [address] N[facility] TER[facility] THYROID 5 [facility] STIMULATI INC INC NG HORMONE TSH COLLECTIO 13404 N[facility]I TER[facility] N VENOUS 5 [facility] BLOOD INC INC VENIPUNCT URE COMPREHEN 53593 N[facility] SIVE 5 [facility] METABOLIC INC INC PANEL RADEX 25328 [facility] ERIC HAND 5 MEDICAL SARANYA MINIMUM 3 IMAGING VIEWS ASS BLOOD 70636 FAMILY FAMILY COUNT 5 CARE CARE COMPLETE ASSOCIATE ASSOCIATE AUTO&AUTO S S DIFRNTL WBC RADIOLOGI 11805 N[facility]I TER[facility]AS C EXAM 5 [facility] CHEST 2 INC INC VIEWS FRONTAL&L ATERAL IAADIADOO 09809 [facility] RONNIE 4 PHYSICIAN [place] [address] [facility] SURG 4 [facility] RAQUEL PATHOLOGY GROSS&[place]ADD[place] ROSCOP[place] EXAM EGD 15467 [place] RUFINO ANT TRANSORAL 4 MEDICAL BIOPSY SERV SINGLE/MU FOUNDATIO LTIPLE N SPECIAL 85141 [facility] STAIN 4 LLC RAQUEL GROUP 1 MICROORGA NISMS I&R FLUORESCE 90173 LAB EDITA LAB EDITA NT 4 ELIS ELIS NONNFCT HOLDINGS HOLDINGS AGT ANTB SCREEN EA ANTIBODY ANTIBODY 97346 COMBINED COMBINED HELICOBAC [address] [address] LAB EDITA LAB EDITA GAMMAGLOB 4 ELIS ELIS ULIN IGA HOLDINGS HOLDINGS IGD IGG IGM EACH IMMUNOASS 25074 LAB EDITA LAB EDITA AY 4 ELIS ELIS ANALYTE HOLDINGS HOLDINGS QUAL/SEMI QUAL MULTIPLE STEP RADEX 88668 NINI BURTONON UPPER GI 4 [facility] W/WO INC INC GLUCAGON/ DELAY IMAGES W/KUB RADEX 02034 AMBERLY REYES UPPER GI 4 MEDICAL SARANYA W/WO IMAGING GLUCAGON/ ASS DELAY IMGES W/O KUB INJECTION J2805 NINILAKE TERRAZAS 4 [facility] SINCALIDE INC INC 5 MICROGRAM S TECHNETIU A9537 NINI TERRAZAS M TC-99M 4 [facility] MEBROFENI INC INC N DX UP TO 15 MCI HEPATOBIL 66415 N[facility] SYST 4 [facility] IMAG INC INC INC [place] W/[place] [address] NINI TER[facility] ABDOMINAL 4 [facility] REAL INC INC TIME W/IMAGE LIMITED COMPREHEN 23308 COMBINED COMBINED SIVE 4 PHYSICIAN PHYSICIAN [place] [address] COMBINED COMBINED AMYLASE 4 PHYSICIAN PHYSICIAN S LA S LA BLOOD 28627 ISATU Harris COUNT 4 G G COMPLETE AUTO&[place] [address] LAB EDITA LAB EDITA LIPASE 4 ELIS ELIS HOLDINGS HOLDINGS COMPRE 55787 TONY SHOEMAKEROND AUDIOMETR 4 ALENA CARVAJAL Y THRESHOLD EVAL SP RECOGNIJ TYMPANOME 44166 TONY TONY TRY 4 ALENA ALENA INJECTION J2405 NINI TERRAZAS 4 [facility] ONDANSETR INC INC ON HCL PER 1 MG TYMPANOST 03321 N[facility]I TER[facility] ALEX 4 [facility] GENERAL INC INC ANESTHESI A ANES 40573 [facility] [place] CLAY XTRNL MID 4 ANESTH & INNER OF THE EAR W/BX BLUE TYMPANOTO MY BASIC 99513 NINI TER[facility]AS METABOLIC 4 [facility] PANEL INC INC CALCIUM TOTAL ECG 31976 BESSON BESSON ROUTINE 4 KASIA KASIA ECG W/LEAST 12 LDS I&R ONLY BLOOD 76179 NINI TERRAZAS COUNT 4 [facility] COMPLETE INC INC AUTO&AUTO DIFRNTL WBC RADIOLOGI 09673 NINI TERRAZAS C EXAM 4 [facility] CHEST 2 INC INC VIEWS FRONTAL&L ATERAL ECG 31018 NINI TERRAZAS ROUTINE 4 [facility] ECG INC INC W/LEAST 12 LDS TRCG ONLY W/O I&R OPHTH 66655 MICHELA SHORTBAYLOR [facility] 4 GRE GRE XM&EVAL COMPRE NEW PT 1/> VST DETERMINA 00058 MICHELA ABERNATHY TION 4 GRE GRE REFRACTIV E STATE BLOOD 88387 MULBERRY MULBERRY COUNT 4 TYRON TYRON COMPLETE AUTO&AUTO DIFRNTL WBC COLLECTIO 88087 MULBERRY MULBERRY N 4 TYRON TYRON CAPILLARY BLOOD SPECIMEN COLLECTIO 65464 ISATU Harris N 4 G G CAPILLARY BLOOD SPECIMEN IAADIADOO 24971 ISATU Harris 4 G G INFLUENZA BLOOD 15654 ISATU Harris COUNT 4 G G COMPLETE AUTO&AUTO DIFRNTL WBC SIMPLE 97529 RONNIE RONNIE REPAIR 3 MADDIE MADDIE SCALP/NEC K/AX/SHERLY T/TRUNK 2.5CM/< SUSCEPTIB 48345 COMBINED COMBINED ILITY 3 PHYSICIAN PHYSICIAN STUDY S LA S LA ANTIMICRO BIAL DISK METHOD CUL BACT 58447 COMBINED COMBINED XCPT 3 PHYSICIAN PHYSICIAN URINE S LA S LA BLOOD/STO OL AEROBIC ISOL INCISION 04465 FAMILY FAMILY & 3 CARE CARE DRAINAGE ASSOCIATE ASSOCIATE ABSCESS S S COMPLICAT ED/MULTIP LE CUL BACT 07888 COMBINED COMBINED XCPT 3 PHYSICIAN PHYSICIAN URINE S LA S LA BLOOD/STO OL AEROBIC ISOL CUL BACT 13926 COMBINED COMBINED XCPT 3 PHYSICIAN PHYSICIAN URINE S LA S LA BLOOD/STO OL AEROBIC ISOL SUSCEPTIB 94305 COMBINED COMBINED ILITY 3 PHYSICIAN PHYSICIAN STUDY S LA S LA ANTIMICRO BIAL DISK METHOD REMOVAL 27809 FAMILY FAMILY IMPACTED 3 CARE CARE CERUMEN ASSOCIATE ASSOCIATE INSTRUMEN S S TATION UNILAT URNLS DIP 37326 MULBERRY MULBERRY 3 TYRON TYRON STICK/TAB LET RGNT NON-AUTO W/O MICRSCP CUL BACT 04953 COMBINED COMBINED XCPT 3 PHYSICIAN PHYSICIAN URINE S LA S LA BLOOD/STO OL AEROBIC ISOL BLOOD 41094 BIBIANA BIBIANA COUNT 3 R H R H COMPLETE AUTO&AUTO DIFRNTL WBC RADIOLOGI 20707 NINI Hobson EXAM 3 [facility] CHEST 2 INC INC VIEWS FRONTAL&L ATERAL CUL BACT 05009 COMBINED COMBINED XCPT 2 PHYSICIAN PHYSICIAN URINE S LA S LA BLOOD/STO OL AEROBIC ISOL SUSCEPTIB 91161 COMBINED COMBINED ILITY 2 PHYSICIAN PHYSICIAN STUDY S LA S LA ANTIMICRO BIAL DISK METHOD BLOOD 88078 BIBIANA BIBIANA COUNT 2 R H R H COMPLETE AUTO&AUTO DIFRNTL WBC BLOOD 81914 ISATU LUNSFORD J COUNT 2 G G COMPLETE AUTO&AUTO DIFRNTL WBC SUSCEPTIB 86033 NINI TERRAZAS LTY STDY 2 [facility] ANTIMICRB INC INC IAL MICRO/AGA R DILUTJ CUL BACT 46573 NINI TERRAZAS XCPT 2 [facility] URINE INC INC BLOOD/STO OL AEROBIC ISOL CUL BACT 51986 NINI TERRAZAS AEROBIC 2 [facility] ADDL INC INC METHS DEFINITIV E EA ISOL CUL BACT 19583 NINI TERRAZAS AEROBIC 2 [facility] ADDL INC INC METHS DEFINITIV E EA ISOL CUL BACT 65087 NINI TERRAZAS XCPT 2 [facility] URINE INC INC BLOOD/STO OL AEROBIC ISOL SUSCEPTIB 84427 NINI TERRAZAS LTY STDY 2 [facility] ANTIMICRB INC INC IAL MICRO/AGA R DILUTJ RADIOLOGI 31167 AMBERLY REYES C EXAM 2 MEDICAL SARANYA CHEST 2 IMAGING VIEWS ASS FRONTAL&L ATERAL RADEX 76803 NINI TERRAZAS RIBS 2 [facility] UNILATERA INC INC L 2 VIEWS RADEX 99795 [facility] DUNNEERIC RIBS UNI 2 MEDICAL SARANYA W/POSTERO IMAGING ANT CH ASS MINIMUM 3 VIEWS URNLS DIP 44498 BIBIANA BIBIANA 2 R H R H STICK/TAB LET RGNT NON-AUTO W/O MICRSCP REMOVAL 28351 BIBIANA BIBIANA IMPACTED 2 R H R H CERUMEN INSTRUMEN TATION UNILAT URNLS DIP 35773 NINI TERRAZAS 2 [facility] STICK/TAB INC INC LET REAGENT AUTO MICROSCOP Y URNLS DIP 41375 NINI TERRAZAS 2 [facility] STICK/TAB INC INC LET REAGENT AUTO MICROSCOP Y COMPREHEN 59523 NINI TERRAZAS SIVE 2 [facility] METABOLIC INC INC PANEL RADIOLOGI 64411 [facility] RAM[facility]REZERIC C EXAM 2 MEDICAL SARANYA CHEST 2 IMAGING VIEWS ASS FRONTAL&L ATERAL BLOOD 93806 NINI TERRAZAS COUNT 2 [facility] COMPLETE INC INC AUTO&AUTO DIFRNTL WBC RADEX 58516 [facility] RAMÍREZERIC HAND 2 MEDICAL SARANYA MINIMUM 3 IMAGING VIEWS ASS TDAP 20926 NINI NINI VACCINE 7 2 [facility] YRS/> IM INC INC IM ADM 13791 NINI BURTONON PRQ ID 2 [facility] SUBQ/IM INC INC NJXS 1 VACCINE ANTIBODY 83100 COMBINED COMBINED HELICOBAC [address] S LA S LA [place] COMPREHEN 74818 COMBINED COMBINED SIVE 2 PHYSICIAN [place] [address] NINI TERRAZAS ABDOMINAL 2 [facility] REAL INC INC TIME W/[place] [address] COMBINED COMBINED AMYLASE 2 [place] [address] LAB EDITA LAB EDITA LIPASE 2 AMERIC [employer] HOLDINGS HOLDING BLOOD 69394 STRAWZELL STRAWZELL COUNT 2 CRI CRI COMPLETE AUTO&AUTO DIFRNTL WBC RADEX 50271 NINI TERRAZAS ABDOMEN 2 [facility] COMPL INC INC W/DCBTS&/ ERC VIEWS RADIOLOGI 11230 NINI TERRAZAS C EXAM 2 [facility] CHEST 2 INC INC VIEWS FRONTAL&L ATERAL BLOOD 91382 STRAWZELL STRAWZELL COUNT 2 CRI CRI COMPLETE AUTO&AUTO DIFRNTL WBC BLOOD 35974 STRAWZELL STRAWZELL COUNT 2 CRI CRI COMPLETE AUTO&AUTO DIFRNTL WBC RADIOLOGI 81160 [place] ERIC C EXAM 1 MEDICAL SARANYA CHEST 2 IMAGING VIEWS ASS FRONTAL&L ATERAL BLOOD 07514 STRAWZELL STRAWZELL COUNT 1 CRI CRI COMPLETE AUTO&AUTO DIFRNTL WBC BLOOD 50349 STRAWZELL STRAWZELL COUNT 1 CRI CRI COMPLETE AUTO&AUTO DIFRNTL WBC COMPREHEN 75739 COMBINED COMBINED SIVE 1 PHYSICIAN PHYSICIAN METABOLIC S LA S LA PANEL IAADI 52137 NINI TERRAZAS INFLUENZA 1 [facility] B VIRUS INC INC IAADI 18996 NINI TERRAZAS INFFLUENZ 1 [facility] A A VIRUS INC INC OBSERVATI 96138 [facility] ON CARE 1 CARE R H DISCHARGE ASSOCIATE S [facility] T RADIOLOGI 15092 [place] ERIC C EXAM 1 MEDICAL SARANYA CHEST 2 IMAGING VIEWS ASS FRONTAL&L ATERAL INITIAL 82729 [facility] OBSERVATI 1 CARE R H ON ASSOCIATE CARE/DAY S 50 MINUTES CUL BACT 43932 NINI TERRAZAS XCPT 1 [facility] URINE INC INC BLOOD/STO OL AEROBIC ISOL INCISION 73310 MICHELA TRUJILLO & 1 EMERGENCY MADDIE DRAINAGE SERVICES ABSCESS COMPLICAT ED/MULTIP LE CUL BACT 51610 NINI TERRAZAS AEROBIC 1 [facility] ADDL INC INC METHS DEFINITIV E EA ISOL SUSCEPTIB 31190 NINI TERRAZAS LTY STDY 1 [facility] ANTIMICRB INC INC IAL MICRO/AGA R DILUTJ OTH 8604 NINI TERRAZAS INCISION 1 [facility] W/DRAINAG INC INC E SKIN&SUBC UTANEOUS TISSUE IADNA 04380 [facility] HERPES 1 [facility] VIRUS AMPLIFIED PROBE TQ IADNA 99653 [facility]ICAL NEISSERIA 1 [facility] GONORRHOE AE AMPLIFIED PROBE TQ IADNA NOS 71712 MEDICAL MEDICAL 1 [facility]AGNOSTI DIAGNOSTI AMPLIFIED [facility] PROBE TQ EACH ORGANISM IADNA 73418 MEDICAL MEDICAL CHLAMYDIA 1 [facility]NOSTI [facility] TRACHOMAT IS AMPLIFIED PROBE TQ IAADI 62375 N[facility] TER[facility] INFFLUENZ 1 [facility] A A VIRUS INC INC IAADI 94972 NINI TERRAZAS INFLUENZA 1 [facility] B VIRUS INC INC IAADI 86279 NINI TERRAZAS INFLUENZA 0 [facility] B VIRUS INC INC IAADI 22391 NINI TERRAZAS INFFLUENZ 0 [facility] [place] [address] NINI TERRAZAS STREPTOCO 0 [facility] CCUS INC INC GROUP A SIMPLE 54160 MICHELA TRUJILLO REPAIR 0 EMERGENCY MADDIE F/E/E/N/L SERVICES /M 2.5CM/< [place] [address] NINI TERRAZAS MAXILLOFA 0 [facility] CIAL W/[place] [address] [facility]INI TERRA[facility]AS CERVICAL 0 [facility] SPINE W/O INC INC CONTRAST MATERIAL LINEAR 0881 NINI TERRAZAS REPAIR OF 0 [facility] INC INC LACERATIO N OF EYELID OR EYEBROW 3D 42197 NINI TERRAZAS RENDERING 0 [facility] W/INTERP INC INC & [place] [address] NINI TERRAZAS HEAD/BRAI 0 [facility] N W/O INC INC CONTRAST MATERIAL 3D 25042 NINI TERRAZAS RENDERING 0 [facility] INC INC W/INTERP& POSTPROC DIFF WORK STATION RADEX 93714 NINI TERRAZAS SPINE 0 [facility] THORACIC INC INC 3 VIEWS RADEX 86444 NINI TERRAZAS SPINE 0 [facility] LUMBOSACR INC INC AL MINIMUM 4 VIEWS SIMPLE 77252 [facility], REPAIR 9 BRENT KATHIE B SCALP/NEC EMERGENCY K/AX/SHERLY PHYS INC T/TRUNK 2.5CM/< CLOSURE 86.59 M. David BAIRES & Ronnie POWER SUBCUTANE OUS NEC Encounters Encounter Start End Date Code Location Performer Type Date OFFICE 86013 [facility] OUTPATIEN 7 7 GROUND T NEW 45 FAMILY MINUTES [facility] NINI - 7 7 [facility] OUTPATIEN INC T OFFICE 93573 [facility] OUTPATIEN 7 7 PHYSICIAN T VISIT S GROUP 10 MINUTES HOSPITAL NINI - 7 7 [facility] OUTPATIEN INC T EMERGENCY 11382 NINI 7 7 [facility]/MODER SEVERITY OFFICE 68224 [facility] OUTPATIEN 7 7 PHYSICIAN T VISIT S GROUP 10 MINUTES HOSPITAL NINI - 7 7 [facility] OUTPATIEN INC T HOSPITAL NINI - 7 7 [facility] OUTPATIEN INC T HOSPITAL NINI - 7 7 [facility] OUTPATIEN INC T OFFICE 00187 [facility] OUTPATIEN 7 7 PHYSICIAN T VISIT S GROUP 10 MINUTES HOSPITAL NINI - 7 7 [facility] OUT[facility]IEN INC T EMERGENCY 28446 [facility] L[facility]MODER SEVERITY HOSPITAL NINI - 6 6 [facility] OUTPATIEN INC T EMERGENCY 24722 NINI 6 6 [facility] DEPARTMEN INC T VISIT LIMITED/M INOR PROB OFFICE 03948 FAMILY CHELA OUTPATIEN 6 6 CARE TAR T VISIT ASSOCIATE 15 S MINUTES OFFICE 93379 FAMILY CROWDY OUTPATIEN 6 6 CARE CRI T VISIT ASSOCIATE 15 S MINUTES OFFICE 05619 FAMILY CHELA OUTPATIEN 6 6 CARE TAR T VISIT ASSOCIATE 15 S MINUTES EMERGENCY 25611 TORSTEN NAYLOR 6 6 PHYSICIAN U [facility] T VISIT MODERATE SEVERITY OFFICE 02849 FAMILY CROWDY OUTPATIEN 6 6 CARE CRI T VISIT ASSOCIATE 15 S MINUTES OFFICE 10548 [facility] OUTPATI[facility] 6 6 DISTRICT HIL T VISIT [facility] DEPT 10 [place] MINUTES EMERGENCY 63325 TORSTEN KESSLER 6 6 PHYSICIAN DEPARTMEN S, PLLC T VISIT MODERATE SEVERITY EMERGENCY 83367 NINI 6 6 [facility] DEPART[facility] INC T VISIT LOW/MODER SEVERITY HOSPITAL NINI - 6 6 [facility] OUTPATIEN INC T OFFICE 86424 ALLERGY TORRES MAR OUTPATIEN 6 6 PARTNERS T VISIT OF MARINA 25 CO MINUTES OFFICE 36099 FAMILY CROWDY OUTPATIEN 6 6 CARE CRI T VISIT ASSOCIATE 15 S MINUTES OFFICE 33748 FAMILY CROWDY OUTPATIEN 6 6 CARE CRI T VISIT ASSOCIATE 15 S MINUTES EMERGENCY 21555 TORSTEN TRUJILLO 6 6 PHYSICIAN MADDIE DEPARTMEN S, PLLC T VISIT MODERATE SEVERITY OFFICE 90935 [facility] HUYNH OUTPATIEN 6 6 PHYSICIAN RASHIDA T VISIT S GROUP 10 MINUTES OFFICE 71944 [facility] HUYNH OUTPATIEN 6 6 PHYSICIAN RASHIDA T VISIT S GROUP 10 MINUTES OFFICE 97441 FAMILY MULBERRY OUTPATIEN 6 6 CARE TYRON T VISIT ASSOCIATE 15 S MINUTES EMERGENCY 29902 TORSTEN WHITE 6 6 PHYSICIAN DEPARTMEN S, PLLC T VISIT LOW/MODER SEVERITY OFFICE 38389 ALLERGY TORRES MAR OUTPATIEN 6 6 PARTNERS T VISIT OF MARINA 25 CO MINUTES OFFICE 41366 FAMILY CROWDY OUTPATIEN 6 6 CARE CRI T VISIT ASSOCIATE 15 S MINUTES OFFICE 60151 FAMILY CROWDY OUTPATIEN 6 6 CARE CRI T VISIT ASSOCIATE 15 S MINUTES OFFICE 38548 FAMILY CROWDY OUTPATIEN 6 6 CARE CRI T VISIT ASSOCIATE 15 S MINUTES EMERGENCY 56536 TORSTEN OLIVO 6 6 PHYSICIAN ITA Lowe [facility] T VISIT HIGH/URGE NT SEVERITY OFFICE 77553 FAMILY CROWDY OUTPATIEN 6 6 CARE CRI T VISIT ASSOCIATE 15 S MINUTES OFFICE 53397 ALLERGY TORRES MAR OUTPATIEN 6 6 PARTNERS T NEW 45 OF MARINA MINUTES CO OFFICE 64012 FAMILY CROWDY OUTPATIEN 6 6 CARE CRI T VISIT ASSOCIATE 15 S MINUTES OFFICE 44299 PROGRESSI RHODA OUTPATIEN 6 6 VE LARRY T VISIT PODIATRY 15 MINUTES OFFICE 66038 FAMILY ISATU OUTPATIEN 6 6 CARE CAPO T VISIT ASSOCIATE 15 S MINUTES OFFICE 60550 FAMILY CROWDY OUTPATIEN 6 6 CARE CRI T VISIT ASSOCIATE 15 S MINUTES OFFICE 68289 FAMILY CROWDY OUTPATIEN 6 6 CARE CRI T VISIT ASSOCIATE 15 S MINUTES OFFICE 37123 PROGRESSI RHODA OUTPATIEN 6 6 VE LARRY T NEW 30 PODIATRY MINUTES EMERGENCY 54497 [facility] 6 6 [facility] LOW[facility]MODER SEVERITY EMERGENCY 20052 TORSTEN NAYLOR 6 6 PHYSICIAN Jackson Lowe [facility] T VISIT MODERATE SEVERITY HOSPITAL NINI - 6 6 [facility] OUTPATIEN INC T OFFICE 34813 MICHELA ABERNATHY OUTPATIEN 6 6 GRE GRE T VISIT 15 MINUTES EMERGENCY 16225 NINI 6 6 [facility] DEPARTMEN INC T VISIT LOW/MODER SEVERITY HOSPITAL NINI - 6 6 [facility] OUTPATIEN INC T OFFICE 62521 FAMILY CROWDY OUTPATIEN 5 5 CARE CRI T VISIT ASSOCIATE 15 S MINUTES OFFICE 26913 FAMILY ISATU OUTPATIEN 5 5 CARE CAPO T VISIT ASSOCIATE 15 S MINUTES HOSPITAL NINI - 5 5 [facility] OUTPATIEN INC T EMERGENCY 56068 NINI 5 5 [facility] DEPARTMEN INC T VISIT LIMITED/M INOR PROB EMERGENCY 72742 TORSTEN THOMPSON 5 5 PHYSICIAN FOR [facility] S, PLL[facility] T VISIT MODERATE SEVERITY OFFICE [address] OUTPATIEN 5 5 [facility] T VISIT HOSPITAL 15 MINUTES HOSPITAL NINI - 5 5 [facility] OUTPATIEN INC T OFFICE 65928 FAMILY MULBERRY OUTPATIEN 5 5 CARE TYRON T VISIT ASSOCIATE 15 S MINUTES OFFICE 97966 FAMILY CROWDY OUTPATIEN 5 5 CARE CRI T VISIT ASSOCIATE 15 S MINUTES OFFICE 84434 NINI FRYMAN OUTPATIEN 5 5 [facility] T VISIT HOSPITAL 15 MINUTES OFFICE 53689 FAMILY CROWDY OUTPATIEN 5 5 CARE CRI T VISIT ASSOCIATE 15 S MINUTES HOSPITAL NINI - 5 5 [facility] OUTPATIEN INC T OFFICE 77130 NINI FRENCHYMAN OUTPATIEN 5 5 [facility] T VISIT HOSPITAL 15 MINUTES OFFICE 40430 ANNIE RUFINO ANT OUTPATIEN 5 5 MEDICAL T VISIT SERV 15 FOUNDATIO MINUTES N OFFICE 48521 [facility] GABRIELLE OUTPATIEN 4 4 PHYSICIAN TONG T VISIT S GROUP 15 MINUTES OFFICE 59089 [facility] RONNIE OUTPATIEN 4 4 PHYSICIAN MADDIE T NEW 20 S GROUP MINUTES HOSPITAL NINI - 4 4 [facility] OUTPATIEN INC T OFFICE 33329 [place] RUFINO ANT OUTPATIEN 4 4 MEDICAL T NEW 45 SERV MINUTES FOUNDATIO N EMERGENCY 12394 [facility] 4 4 BRENT IMT DEPARTMEN EMERGENCY T VISIT PHYS MODERATE SEVERITY OFFICE 12730 FAMILY OUTPATIEN 4 4 CARE T VISIT ASSOCIATE 15 S MINUTES HOSPITAL NINI - 4 4 [facility] OUTPATIEN INC T OFFICE 51933 FAMILY BIBIANA OUTPATIEN 4 4 CARE R H T VISIT ASSOCIATE 15 S MINUTES HOSPITAL NINI - 4 4 [facility] OUTPATIEN INC T EMERGENCY 96452 ALFARIS ALFARIS 4 4 [facility] DEPARTMEN T VISIT HIGH/URGE NT SEVERITY EMERGENCY 26701 [facility] 4 4 BRENT DEPARTMEN EMERGENCY T VISIT PHYS HIGH/URGE NT SEVERITY HOSPITAL NINI - 4 4 [facility] OUTPATIEN INC T EMERGENCY 92525 INDIRA CARVAJAL 4 4 DEPARTMEN T VISIT MODERATE SEVERITY OFFICE 19417 FAMILY OUTPATIEN 4 4 CARE T VISIT ASSOCIATE 15 S MINUTES OFFICE 30920 MICHELA ABERNATHY OUTPATIEN 4 4 GRE GRE T NEW 45 MINUTES OFFICE 68366 ISATU LUNSFORD J OUTPATIEN 4 4 G G T VISIT 15 MINUTES EMERGENCY 68288 INDIRA CARVAJAL 4 4 DEPARTMEN T VISIT MODERATE SEVERITY HOSPITAL NINI - 4 4 [facility] OUTPATIEN INC T EMERGENCY 35095 NINI 4 4 [facility] DEPARTMEN INC T VISIT LIMITED/M INOR PROB EMERGENCY 51484 HARDY DASH 4 4 BRO BRO DEPARTMEN T VISIT MODERATE SEVERITY EMERGENCY 08278 YARELI KASIA YARELI KASIA 4 4 DEPARTMEN T VISIT MODERATE SEVERITY HOSPITAL NINI - 4 4 [facility] OUTPATIEN INC T HOSPITAL NINI - 4 4 [facility] OUTPATIEN INC T OFFICE 45489 FAMILY OUTPATIEN 4 4 CARE T VISIT ASSOCIATE 15 S MINUTES OFFICE 77780 FAMILY OUTPATIEN 4 4 CARE T VISIT ASSOCIATE 15 S MINUTES OFFICE 91843 MULBERRY MULBERRY OUTPATIEN 4 4 TYRON TYRON T VISIT 15 MINUTES EMERGENCY 51220 RONNIE TRUJILLO 4 4 MADDIE MADDIE DEPARTMEN T VISIT HIGH/URGE NT SEVERITY OFFICE 51451 ISATU Harris OUTPATIEN 4 4 G G T VISIT 15 MINUTES OFFICE 18250 MULBERRY MULBERRY OUTPATIEN 3 3 TYRON TYRON T VISIT 10 MINUTES OFFICE 28881 NINI PARSONSPATIEN 3 [address] [facility] [address] MINUTES OFFICE 31563 FAMILY OUTPATIEN 3 3 CARE T VISIT ASSOCIATE 15 S MINUTES Emergency NELIA Trujillo MD (ER) 3 23:30 3 23:51 [facility] EMERGENCY 27932 RONNIE TRUJILLO 3 3 MADDIE MADDIE DEPARTMEN T VISIT MODERATE SEVERITY OFFICE 58646 FAMILY OUTPATIEN 3 3 CARE T VISIT ASSOCIATE 15 S MINUTES OFFICE 03760 FAMILY OUTPATIEN 3 3 CARE T VISIT ASSOCIATE 15 S MINUTES OFFICE 66102 FAMILY OUTPATIEN 3 3 CARE T VISIT ASSOCIATE 15 S MINUTES OFFICE 44649 ISATU Harris OUTPATIEN 3 3 G G T VISIT 15 MINUTES OFFICE 04250 MULBERRY MULBERRY OUTPATIEN 3 3 TYRON TYRON T VISIT 15 MINUTES OFFICE 70736 FAMILY OUTPATIEN 3 3 CARE T VISIT ASSOCIATE 15 S MINUTES OFFICE 22533 FAMILY OUTPATIEN 3 3 CARE T VISIT ASSOCIATE 15 S MINUTES OFFICE 71986 MULBERRY MULBERRY OUTPATIEN 3 3 TYRON TYRON T VISIT 15 MINUTES OFFICE 98664 FAMILY OUTPATIEN 3 3 CARE T VISIT ASSOCIATE 15 S MINUTES OFFICE 10244 FAMILY OUTPATIEN 3 3 CARE T VISIT ASSOCIATE 15 S MINUTES Emergency NELIA Trujillo MD (ER) 3 19:50 3 21:16 [facility] EMERGENCY 91156 NINI 3 3 [facility] DEPARTMEN INC T VISIT LOW/MODER SEVERITY EMERGENCY 66587 RONNIE TRUJILLO 3 3 [facility] DEPARTMEN T VISIT MODERATE SEVERITY HOSPITAL NINI - 3 3 [facility] OUTPATIEN INC T OFFICE 44723 FAMILY OUTPATIEN 3 3 CARE T VISIT ASSOCIATE 15 S MINUTES Emergency NELIA Trujillo MD (ER) 3 20:01 3 21:15 [facility] NINI - 3 3 [facility] OUTPATIEN INC T EMERGENCY 45911 NINI 3 3 [facility] DEPARTMEN INC T VISIT LOW/MODER SEVERITY EMERGENCY 75237 RONNIE TRUJILLO 3 3 [facility] DEPARTMEN T VISIT MODERATE SEVERITY OFFICE 25777 MULBERRY MULBERRY OUTPATIEN 3 3 TYRON TYRON T VISIT 15 MINUTES OFFICE 17035 MULBERRY MULBERRY OUTPATIEN 3 3 TYRON TYRON T VISIT 15 MINUTES HOSPITAL NINI - 3 3 [facility] OUTPATIEN INC T OFFICE 57494 BIBIANA BIBIANA OUTPATIEN 3 3 R H R H T VISIT 15 MINUTES OFFICE 97861 FAMILY OUTPATIEN 3 3 CARE T VISIT ASSOCIATE 15 S MINUTES OFFICE 74597 FAMILY OUTPATIEN 2 2 CARE T VISIT ASSOCIATE 15 S MINUTES OFFICE 47565 FAMILY OUTPATIEN 2 2 CARE T VISIT ASSOCIATE 15 S MINUTES EMERGENCY 19098 RONNIE RONNIE 2 2 [facility] DEPARTMEN T VISIT MODERATE SEVERITY HOSPITAL NINI - 2 2 [facility] OUTPATIEN INC T EMERGENCY 00692 NINI 2 2 [facility] DEPARTMEN INC T VISIT LIMITED/M INOR PROB OFFICE 93284 BIBIANA BIBIANA OUTPATIEN 2 2 R H R H T VISIT 15 MINUTES OFFICE 59153 ISATU Harris OUTPATIEN 2 2 G G T VISIT 15 MINUTES EMERGENCY 06640 NINI 2 2 [facility] DEPARTMEN INC T VISIT LOW/MODER SEVERITY HOSPITAL NINI - 2 2 [facility] OUTPATIEN INC T EMERGENCY 89581 RONNIE HOLLANDEY 2 2 [facility] SE[facility] OFF[facility] 94383 FAMILY OUTPATIEN 2 2 CARE T VISIT ASSOCIATE 15 S MINUTES OFFICE 69610 BIBIANA BIBIANA OUTPATIEN 2 2 R H R H T VISIT 15 MINUTES EMERGENCY 72393 NINI 2 2 [facility] DEPARTMEN INC T VISIT LIMITED/M INOR PROB EMERGENCY 88202 RONNIE HOLLANDEY 2 [facility] SE[facility] H[facility]PITAL NINI - 2 2 [facility] OUTPATIEN INC T OFFICE 83298 FAMILY OUTPATIEN 2 2 CARE T VISIT ASSOCIATE 15 S MINUTES HOSPITAL NINI - 2 2 [facility] OUTPATIEN INC T HOSPITAL NINI - 2 2 [facility] OUTPATIEN INC T EMERGENCY 09917 NINI 2 2 [facility] DEPARTMEN INC T VISIT LOW/MODER SEVERITY EMERGENCY 17614 MICHELA CARVAJAL 2 2 EMERGENCY DEPARTMEN SERVICES T VISIT HIGH/URGE NT SEVERITY EMERGENCY 45571 MICHELA PAT 2 2 EMERGENCY [facility] DEPARTMEN SERVICES T VISIT MODERATE SEVERITY EMERGENCY 39850 NINI 2 2 [facility] DEPARTMEN INC T VISIT MODERATE SEVERITY EMERGENCY 62868 RONNIE TRUJILLO 2 2 MADDIE [facility] DEPARTMEN T VISIT HIGH/URGE NT SEVERITY HOSPITAL NINI - 2 2 [facility] OUTPATIEN INC T OFFICE 23530 FAMILY OUTPATIEN 2 2 CARE T VISIT ASSOCIATE 15 S MINUTES OFFICE 02413 FAMILY OUTPATIEN 2 2 CARE T VISIT ASSOCIATE 15 S MINUTES HOSPITAL NINI - 2 2 [facility] OUTPATIEN INC T EMERGENCY 31577 MICHELA TRUJILLO 2 2 EMERGENCY [facility] DEPARTMEN SERVICES T VISIT MODERATE SEVERITY EMERGENCY 11080 NINI 2 2 [facility] DEPARTMEN INC T VISIT LOW/MODER SEVERITY EMERGENCY 27180 NINI 2 2 [facility] DEPARTMEN INC T VISIT MODERATE SEVERITY HOSPITAL NINI - 2 2 [facility] OUTPATIEN INC HOSPITAL NINI - 2 2 [facility] OUTPATIEN INC T OFFICE 99514 STRAWZELL STRAWZELL OUTPATIEN 2 2 CRI CRI T VISIT 15 MINUTES OFFICE 03704 STRAWZELL STRAWZELL OUTPATIEN 2 2 CRI CRI T VISIT 15 MINUTES HOSPITAL NINI - 2 2 [facility] OUTPATIEN INC T OFFICE 43706 STRAWZELL STRAWZELL OUTPATIEN 2 2 CRI CRI T VISIT 15 MINUTES OFFICE 44537 MULBERRY MULBERRY OUTPATIEN 2 2 TYRON TYRON T VISIT 15 MINUTES HOSPITAL NINI - 2 2 [facility] OUTPATIEN INC T EMERGENCY 79783 NINI 2 2 [facility] DEPARTMEN INC T VISIT LOW/MODER SEVERITY EMERGENCY 52653 MICHELA TRUJILLO 2 2 EMERGENCY [facility] DEPARTMEN SERVICES T VISIT MODERATE SEVERITY OFFICE 97691 FAMILY [place] OUTPATIEN 1 1 CARE R H T VISIT ASSOCIATE 15 S MINUTES HOSPITAL NINI - 1 1 [facility] OUTPATIEN INC T OFFICE 38805 STRAWZELL STRAWZELL OUTPATIEN 1 1 CRI CRI T VISIT 15 MINUTES OFFICE 60843 STRAWZELL STRAWZELL OUTPATIEN 1 1 CRI CRI T VISIT 15 MINUTES HOSPITAL NINI - 1 1 [facility] OUTPATIEN INC T EMERGENCY 98757 CARDOSO JOSE F CARDOSO JOSE F 1 1 DEPARTMEN T VISIT HIGH/URGE NT SEVERITY EMERGENCY 82257 NINI 1 1 [facility] DEPARTMEN INC T VISIT LOW/MODER SEVERITY OFFICE 83952 FAMILY [place] OUTPATIEN 1 1 CARE R H T VISIT ASSOCIATE 15 S MINUTES HOSPITAL NINI - 1 1 [facility] INPATIENT INC OFFICE 07958 FAMILY [place] OUTPATIEN 1 1 CARE R H T VISIT ASSOCIATE 25 S MINUTES EMERGENCY 76492 MICHELA TRUJILLO 1 1 EMERGENCY [facility] DEPARTMEN SERVICES T VISIT HIGH/URGE NT SEVERITY HOSPITAL NINI - 1 1 [facility] OUTPATIEN INC T EMERGENCY 23062 NINI 1 1 [facility] DEPARTMEN INC T VISIT LOW/MODER SEVERITY EMERGENCY 64690 [facility] 1 1 [facility] V[facility]/M INOR PROB EMERGENCY 13199 MICHELA POWER 1 1 [facility] SE[facility] NINI - 1 1 [facility] OUTPATIEN INC T EMERGENCY 44825 MICHELA KOHLER 1 1 EMERGENCY DEPARTMEN SERVICES T VISIT MODERATE SEVERITY HOSPITAL NINI - 1 1 [facility] OUTPATIEN INC T EMERGENCY 84228 NINI 1 1 [facility] DEPARTMEN INC T VISIT LOW/MODER SEVERITY OFFICE 15576 FAMILY MULBERRY OUTPATIEN 1 1 CARE TYRON T VISIT ASSOCIATE 15 S MINUTES EMERGENCY 32582 MICHELA TINAJERO 1 [facility]IGH/URGE NT SEVERITY [facility] NINI - 1 1 [facility] OUTPATIEN INC T EMERGENCY 15146 NINI 1 1 [facility] DEPARTMEN INC T VISIT LOW/MODER SEVERITY HOSPITAL NINI - 1 1 [facility] OUTPATIEN INC T EMERGENCY 00326 NINI 1 1 [facility] DEPARTMEN INC T VISIT LOW/MODER SEVERITY EMERGENCY 27312 MICHELA TRUJILLO 1 1 EMERGENCY [facility] SERVICES T VISIT HIGH/URGE NT SEVERITY HOSPITAL NINI - 0 0 [facility] OUTPATIEN INC T EMERGENCY 38354 NINI 0 0 [facility] DEPARTMEN INC T VISIT LOW/MODER SEVERITY HOSPITAL NINI - 0 0 [facility] OUTPATIEN INC T EMERGENCY 86565 NINI 0 0 [facility] DEPARTMEN INC T VISIT LOW/MODER SEVERITY EMERGENCY 97330 MICHELA POWER 0 0 [facility] MODERATE SEVERITY OFFICE 72122 FAMILY [place] OUTPATIEN 0 0 CARE R H T VISIT ASSOCIATE 15 S MINUTES OFFICE 83808 FAMILY ISATU J OUTPATIEN 0 0 CARE T VISIT ASSOCIATE 15 S MINUTES EMERGENCY 11355 MICHELA TINAJERO 0 0 EMERGENCY DEPARTMEN SERVICES T VISIT MODERATE SEVERITY HOSPITAL NINI - 0 0 [facility] OUTPATIEN INC T EMERGENCY 26210 NINI 0 0 [facility] DEPARTMEN INC T VISIT LIMITED/M INOR PROB EMERGENCY 79422 NINI 0 0 [facility] DEPARTMEN INC T VISIT MODERATE SEVERITY HOSPITAL NINI - 0 0 [facility] OUTPATIEN INC T HOSPITAL NINI - 0 0 [facility] OUTPATIEN INC T EMERGENCY 78426 MICHELA TRUJILLO DEPT 0 0 EMERGENCY MADDIE VISIT SERVICES HIGH SEVERITY& THREAT FUNJ EMERGENCY 43258 NINI 0 0 [facility] DEPARTMEN INC T VISIT LOW/MODER SEVERITY EMERGENCY 26475 MICHELA MURILLO 0 0 EMERGENCY [facility] DEPARTMEN SERVICES T VISIT MODERATE SEVERITY HOSPITAL NINI - 0 0 [facility] OUTPATIEN INC T EMERGENCY 30379 NINI 0 0 [facility] DEPARTMEN INC T VISIT LOW/MODER SEVERITY OFFICE 43569 Steven MEJÍA OUTPATIEN 0 0 CARE G T VISIT ASSOCIATE 15 S MINUTES HOSPITAL NINI - 0 0 [facility] OUTPATIEN INC T OFFICE 15374 AMBROSE VEGA 9 9 VISION TONNY A T VISIT 10 MINUTES EMERGENCY 76854 MICHELA TRUJILLO, 9 9 EMERGENCY [facility] SERVICES T VISIT MODERATE ASSOCIATE SEVERITY S HOSPITAL NINI - 9 9 [facility] OUTPATIEN [facility] T EMERGENCY 85505 NINI 9 9 [facility] DEPARTMEN INC T VISIT LOW/MODER SEVERITY EMERGENCY 67463 MICHELA TRUJILLO, 9 9 EMERGENCY KATHIE [facility] SERVICES T VISIT MODERATE ASSOCIATE SEVERITY S HOSPITAL NINI - 9 9 [facility] OUTPATIEN INC T EMERGENCY 14329 NINI 9 9 [facility] V[facility]/M INOR PROB EMERGENCY 40053 [facility], 9 9 BRENT KATHIE B [facility] EMERGENCY T VISIT PHYS INC LOW/MODER SEVERITY EMERGENCY 58563 NINI 8 8 [facility] DEPARTMEN INC T VISIT LOW/MODER SEVERITY HOSPITAL NINI - 8 8 [facility] OUTPATIEN INC T EMERGENCY 09850 LALITHA ELLIOTT, 8 8 [facility] T VISIT ON MODERATE SEVERITY HOSPITAL NINI - 8 8 [facility] OUTPATIEN INC T EMERGENCY 89359 NINI 8 8 [facility] MOD[facility]ATE SEVERITY OFFICE 28540 AMBROSE ARAUJO 8 8 CARE ANDREW T T VISIT ASSOCIATE 15 S MINUTES OFFICE 44434 AMBROSE YATES 8 8 CARE Hope COSTELLO T VISIT ASSOCIATE 15 S MINUTES
--- OUTSIDE RECORDS SUMMARY | 2017-05-18 15:16 | External Medical Summary Rpt | CCD ---
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 INC CALCIUM TOTAL ECG 50350 BESSON BESSON ROUTINE 4 KASIA KASIA ECG W/LEAST 12 LDS I&R ONLY BLOOD 84748 NINI TERRAZAS COUNT 4 [facility] COMPLETE INC INC AUTO&AUTO DIFRNTL WBC RADIOLOGI 25773 NINI TERRAZAS C EXAM 4 [facility] CHEST 2 INC INC VIEWS FRONTAL&L ATERAL ECG 56352 NINI TERRAZAS ROUTINE 4 [facility] ECG INC INC W/LEAST 12 LDS TRCG ONLY W/O I&R OPHTH 52872 [facility] 4 GRE GRE XM&EVAL COMPRE NEW PT 1/> VST DETERMINA 09560 MICHELA ABERNATHY TION 4 GRE GRE REFRACTIV E STATE BLOOD 07583 MULBERRY MULBERRY COUNT 4 TYRON TYRON COMPLETE AUTO&AUTO DIFRNTL WBC COLLECTIO 06733 MULBERRY MULBERRY N 4 TYRON TYRON CAPILLARY BLOOD SPECIMEN COLLECTIO 42305 ISATU Harris N 4 G G CAPILLARY BLOOD SPECIMEN IAADIADOO 65765 ISATU Harris 4 G G INFLUENZA BLOOD 78147 ISATU Harris COUNT 4 G G COMPLETE AUTO&AUTO DIFRNTL WBC SIMPLE 61415 RONNIE RONNIE REPAIR 3 MADDIE MADDIE SCALP/NEC K/AX/SHERLY T/TRUNK 2.5CM/< SUSCEPTIB 80417 COMBINED COMBINED ILITY 3 PHYSICIAN PHYSICIAN STUDY S LA S LA ANTIMICRO BIAL DISK METHOD CUL BACT 44366 COMBINED COMBINED XCPT 3 PHYSICIAN PHYSICIAN URINE S LA S LA BLOOD/STO OL AEROBIC ISOL INCISION 92597 FAMILY FAMILY & 3 CARE CARE DRAINAGE ASSOCIATE ASSOCIATE ABSCESS S S COMPLICAT ED/MULTIP LE CUL BACT 01136 COMBINED COMBINED XCPT 3 PHYSICIAN PHYSICIAN URINE S LA S LA BLOOD/STO OL AEROBIC ISOL CUL BACT 31132 COMBINED COMBINED XCPT 3 PHYSICIAN PHYSICIAN URINE S LA S LA BLOOD/STO OL AEROBIC ISOL SUSCEPTIB 67294 COMBINED COMBINED ILITY 3 PHYSICIAN PHYSICIAN STUDY S LA S LA ANTIMICRO BIAL DISK METHOD REMOVAL 62048 FAMILY FAMILY IMPACTED 3 CARE CARE CERUMEN ASSOCIATE ASSOCIATE INSTRUMEN S S TATION UNILAT URNLS DIP 36730 MULBERRY MULBERRY 3 TYRON TYRON STICK/TAB LET RGNT NON-AUTO W/O MICRSCP CUL BACT 42711 COMBINED COMBINED XCPT 3 PHYSICIAN PHYSICIAN URINE S LA S LA BLOOD/STO OL AEROBIC ISOL BLOOD 32303 BIBIANA BIBIANA COUNT 3 R H R H COMPLETE AUTO&AUTO DIFRNTL WBC RADIOLOGI 75113 NINI Hobson EXAM 3 [facility] CHEST 2 INC INC VIEWS FRONTAL&L ATERAL CUL BACT 77828 COMBINED COMBINED XCPT 2 PHYSICIAN PHYSICIAN URINE S LA S LA BLOOD/STO OL AEROBIC ISOL SUSCEPTIB 23917 COMBINED COMBINED ILITY 2 PHYSICIAN PHYSICIAN STUDY S LA S LA ANTIMICRO BIAL DISK METHOD BLOOD 82567 BIBIANA BIBIANA COUNT 2 R H R H COMPLETE AUTO&AUTO DIFRNTL WBC BLOOD 19334 ISATU LUNSFORD J COUNT 2 G G COMPLETE AUTO&AUTO DIFRNTL WBC SUSCEPTIB 09314 NINI TERRAZAS LTY STDY 2 [facility] ANTIMICRB INC INC IAL MICRO/AGA R DILUTJ CUL BACT 49834 NINI TERRAZAS XCPT 2 [facility] URINE INC INC BLOOD/STO OL AEROBIC ISOL CUL BACT 98865 NINI TERRAZAS AEROBIC 2 [facility] ADDL INC INC METHS DEFINITIV E EA ISOL CUL BACT 68973 NINI TERRAZAS AEROBIC 2 [facility] ADDL INC INC METHS DEFINITIV E EA ISOL CUL BACT 55220 NINI TERRAZAS XCPT 2 [facility] URINE INC INC BLOOD/STO OL AEROBIC ISOL SUSCEPTIB 63507 NINI TERRAZAS LTY STDY 2 [facility] ANTIMICRB INC INC IAL MICRO/AGA R DILUTJ RADIOLOGI 99934 AMBERLY REYES C EXAM 2 MEDICAL SARANYA CHEST 2 IMAGING VIEWS ASS FRONTAL&L ATERAL RADEX 68305 NINI TERRAZAS RIBS 2 [facility] UNILATERA INC INC L 2 VIEWS RADEX 97604 [facility] [place] [place] RIBS UNI 2 MEDICAL SARANYA W/POSTERO IMAGING ANT CH ASS MINIMUM 3 VIEWS URNLS DIP 21822 BIBIANA BIBIANA 2 R H R H STICK/TAB LET RGNT NON-AUTO W/O MICRSCP REMOVAL 67816 BIBIANA BIBIANA IMPACTED 2 R H R H CERUMEN INSTRUMEN TATION UNILAT URNLS DIP 61554 NINI TERRAZAS 2 [facility] STICK/TAB INC INC LET REAGENT AUTO MICROSCOP Y URNLS DIP 53822 NINI TERRAZAS 2 [facility] STICK/TAB INC INC LET REAGENT AUTO MICROSCOP Y COMPREHEN 13985 NINI TERRAZAS SIVE 2 [facility] METABOLIC INC INC PANEL RADIOLOGI 72896 [facility] [place] [facility] [place]REZERIC C EXAM 2 MEDICAL SARANYA CHEST 2 IMAGING VIEWS ASS FRONTAL&L ATERAL BLOOD 32718 NINI TERRAZAS COUNT 2 [facility] COMPLETE INC INC AUTO&AUTO DIFRNTL WBC RADEX 59578 [facility] [place] [facility] [place] HAND 2 MEDICAL SARANYA MINIMUM 3 IMAGING VIEWS ASS TDAP 61170 NINI NINI VACCINE 7 2 [facility] YRS/> IM INC INC IM ADM 38056 NINI BURTONON PRQ ID 2 [facility] SUBQ/IM INC INC NJXS 1 VACCINE ANTIBODY 84169 COMBINED COMBINED HELICOBAC [address] S LA S [place] COMPREHEN 12073 COMBINED COMBINED SIVE 2 PHYSICIAN [place] [address] NINI TERRAZAS ABDOMINAL 2 [facility] REAL INC INC TIME W/[place] [address] COMBINED COMBINED AMYLASE 2 [place] [address] LAB EDITA LAB EDITA LIPASE 2 AMERIC AMERIC HOLDINGS HOLDING BLOOD 31507 STRAWZELL STRAWZELL COUNT 2 CRI CRI COMPLETE AUTO&AUTO DIFRNTL WBC RADEX 57485 NINI TERRAZAS ABDOMEN 2 [facility] COMPL INC INC W/DCBTS&/ ERC VIEWS RADIOLOGI 48663 NINI TERRAZAS C EXAM 2 [facility] CHEST 2 INC INC VIEWS FRONTAL&L ATERAL BLOOD 01766 STRAWZELL STRAWZELL COUNT 2 CRI CRI COMPLETE AUTO&AUTO DIFRNTL WBC BLOOD 44176 STRAWZELL STRAWZELL COUNT 2 CRI CRI COMPLETE AUTO&AUTO DIFRNTL WBC RADIOLOGI 12823 [place] ERIC C EXAM 1 MEDICAL SARANYA CHEST 2 IMAGING VIEWS ASS FRONTAL&L ATERAL BLOOD 61146 STRAWZELL STRAWZELL COUNT 1 CRI CRI COMPLETE AUTO&AUTO DIFRNTL WBC BLOOD 44384 STRAWZELL STRAWZELL COUNT 1 CRI CRI COMPLETE AUTO&AUTO DIFRNTL WBC COMPREHEN 99111 COMBINED COMBINED SIVE 1 PHYSICIAN PHYSICIAN METABOLIC S LA S LA PANEL IAADI 99207 NINI TERRAZAS INFLUENZA 1 [facility] B VIRUS INC INC IAADI 89758 NINI TERRAZAS INFFLUENZ 1 [facility] A A VIRUS INC INC OBSERVATI 16304 [facility] CARE 1 CARE R [facility] 40004 [place] ERIC C EXAM 1 MEDICAL SARNAYA CHEST 2 IMAGING VIEWS ASS FRONTAL&L ATERAL INITIAL 26794 [facility] OBSERVATI 1 CARE R H ON ASSOCIATE CARE/DAY S 50 MINUTES CUL BACT 37489 NINI TERRAZAS XCPT 1 [facility] URINE INC INC BLOOD/STO OL AEROBIC ISOL INCISION 05579 MICHELA TRUJILLO & 1 EMERGENCY MADDIE DRAINAGE SERVICES ABSCESS COMPLICAT ED/MULTIP LE CUL BACT 51270 NINI TERRAZAS AEROBIC 1 [facility] ADDL INC INC METHS DEFINITIV E EA ISOL SUSCEPTIB 08903 NINI TERRAZAS LTY STDY 1 [facility] ANTIMICRB INC INC IAL MICRO/AGA R DILUTJ OTH 8604 NINI TERRAZAS INCISION 1 [facility] W/DRAINAG INC INC E SKIN&SUBC UTANEOUS TISSUE IADNA 38516 MEDICAL MEDICAL HERPES 1 [facility] SOMPLX [facility] VIRUS AMPLIFIED PROBE TQ IADNA 43803 MEDICAL MEDICAL NEISSERIA 1 [facility]AGNOST[facility] GONORRHOE AE AMPLIFIED PROBE TQ IADNA NOS 77764 MEDICAL MEDICAL 1 DIAGNOSTI DIAGNOSTI AMPLIFIED [facility] PROBE TQ EACH ORGANISM IADNA 38021 MEDICAL MEDICAL CHLAMYDIA 1 DIAGNOSTI DIAGNOSTI [facility] TRACHOMAT IS AMPLIFIED PROBE TQ IAADI 74544 NINI TERRAZAS INFFLUENZ 1 [facility] A A VIRUS INC INC IAADI 06306 NINI TERRAZAS INFLUENZA 1 [facility] B VIRUS INC INC IAADI 13888 NINI TERRAZAS INFLUENZA 0 [facility] B VIRUS INC INC IAADI 75754 NINI TERRAZAS INFFLUENZ 0 [facility] [place] [address] NINI TERRAZAS STREPTOCO 0 [facility] CCUS INC INC GROUP A SIMPLE 78746 MICHELA TRUJILLO REPAIR 0 EMERGENCY MADDIE F/E/E/N/L SERVICES /M 2.5CM/< [place] [address] NINI TERRAZAS MAXILLOFA 0 [facility] CIAL W/[place] [address] NINI TERRAZAS CERVICAL 0 [facility] SPINE W/O INC INC CONTRAST MATERIAL LINEAR 0881 NINI TERRAZAS REPAIR OF 0 [facility] INC INC LACERATIO N OF EYELID OR EYEBROW 3D 93879 NINI TERRAZAS RENDERING 0 [facility] W/INTERP INC INC & [place] [address] NINI TERRAZAS HEAD/BRAI 0 [facility] N W/O INC INC CONTRAST MATERIAL 3D 90663 NINI TERRAZAS RENDERING 0 [facility] INC INC W/INTERP& POSTPROC DIFF WORK STATION RADEX 41311 NINI TERRAZAS SPINE 0 [facility] THORACIC INC INC 3 VIEWS RADEX 65861 NINI TERRAZAS SPINE 0 [facility] LUMBOSACR INC INC AL MINIMUM 4 VIEWS SIMPLE 87459 [facility] STEPHEN, REPAIR 9 BRENT KATHIE B SCALP/NEC EMERGENCY K/AX/SHERLY PHYS INC T/TRUNK 2.5CM/< CLOSURE 86.59 M. David BAIRES & Ronnie POWER SUBCUTANE OUS NEC Encounters Encounter Start End Date Code Location Performer Type Date OFFICE 19128 [facility] OUTPATIEN 7 7 GROUND T NEW 45 FAMILY MINUTES [facility] NINI - 7 7 [facility] OUTPATIEN INC T OFFICE 01460 [facility] OUTPATIEN 7 7 PHYSICIAN T VISIT S GROUP 10 MINUTES HOSPITAL NINI - 7 7 [facility] OUTPATIEN INC T EMERGENCY 97147 NINI 7 7 [facility]/MODER SEVERITY OFFICE 05390 [facility] OUTPATIEN 7 7 PHYSICIAN T VISIT S GROUP 10 MINUTES HOSPITAL NINI - 7 7 [facility] OUTPATIEN INC T HOSPITAL INNI - 7 7 [facility] OUTPATIEN INC T HOSPITAL NINI - 7 7 [facility] OUTPATIEN INC T OFFICE 52455 [facility] OUTPATIEN 7 7 PHYSICIAN T VISIT S GROUP 10 MINUTES HOSPITAL NINI - 7 7 [facility] OUTPATIEN INC T EMERGENCY 24147 [facility] L[facility]MODER SEVERITY [facility] NINI - 6 6 [facility] OUTPATIEN INC T EMERGENCY 66112 NINI 6 6 [facility] DEPARTMEN INC T VISIT LIMITED/M INOR PROB OFFICE 25506 FAMILY CHELA OUTPATIEN 6 6 CARE TAR T VISIT ASSOCIATE 15 S MINUTES OFFICE 85766 FAMILY CROWDY OUTPATIEN 6 6 CARE CRI T VISIT ASSOCIATE 15 S MINUTES OFFICE 27089 FAMILY CHELA OUTPATIEN 6 6 CARE TAR T VISIT ASSOCIATE 15 S MINUTES EMERGENCY 23004 TORSTEN NAYLOR 6 6 PHYSICIAN U [facility] T VISIT MODERATE SEVERITY OFFICE 16613 FAMILY CROWDY OUTPATIEN 6 6 CARE CRI T VISIT ASSOCIATE 15 S MINUTES OFFICE 01620 [facility] 6 6 [facility] T VISIT [facility] DEPT 10 [place] MINUTES EMERGENCY 87184 TORSTEN KESSLER 6 6 PHYSICIAN DEPARTMEN S, PLLC T VISIT MODERATE SEVERITY EMERGENCY 32437 NINI 6 6 [facility] DEPARTMEN INC T VISIT LOW/MODER SEVERITY HOSPITAL NINI - 6 6 [facility] OUTPATIEN INC T OFFICE 21496 [facility]ER[facility] TORRES MAR OUTPATIEN 6 6 PARTNERS T VISIT OF [place] 25 CO MINUTES OFFICE 82327 FAMILY CROWDY OUTPATIEN 6 6 CARE CRI T VISIT ASSOCIATE 15 S MINUTES OFFICE 70462 FAMILY CROWDY OUTPATIEN 6 6 CARE CRI T VISIT ASSOCIATE 15 S MINUTES EMERGENCY 37045 TORSTEN TRUJILLO 6 6 PHYSICIAN MADDIE DEPARTMEN S, PLLC T VISIT MODERATE SEVERITY OFFICE 20073 [facility] OUTPATIEN 6 6 PHYSICIAN RASHIDA T VISIT S GROUP 10 MINUTES OFFICE 84642 [facility] OUTPATIEN 6 6 PHYSICIAN RASHIDA T VISIT S GROUP 10 MINUTES OFFICE 26792 FAMILY MULBERRY OUTPATIEN 6 6 CARE TYRON T VISIT ASSOCIATE 15 S MINUTES EMERGENCY 10027 TORSTEN WHITE 6 6 PHYSICIAN DEPARTMEN S, PLLC T VISIT LOW/MODER SEVERITY OFFICE 93508 ALLERGY TORRES MAR OUTPATIEN 6 6 PARTNERS T VISIT OF [place] 25 CO MINUTES OFFICE 59678 FAMILY CROWDY OUTPATIEN 6 6 CARE CRI T VISIT ASSOCIATE 15 S MINUTES OFFICE 95814 FAMILY CROWDY OUTPATIEN 6 6 CARE CRI T VISIT ASSOCIATE 15 S MINUTES OFFICE 28688 FAMILY CROWDY OUTPATIEN 6 6 CARE CRI T VISIT ASSOCIATE 15 S MINUTES EMERGENCY 29976 TORSTEN OLIVO 6 6 PHYSICIAN ITA [facility] T VISIT HIGH/URGE NT SEVERITY OFFICE 99850 FAMILY CROWDY OUTPATIEN 6 6 CARE CRI T VISIT ASSOCIATE 15 S MINUTES OFFICE 78805 ALLERGY TORRES MAR OUTPATIEN 6 6 PARTNERS T NEW 45 OF [place]INA MINUTES CO OFFICE 63373 FAMILY CROWDY OUTPATIEN 6 6 CARE CRI T VISIT ASSOCIATE 15 S MINUTES OFFICE 90776 PROGRESSI RHODA OUTPATIEN 6 6 VE LARRY T VISIT PODIATRY 15 MINUTES OFFICE 65363 FAMILY ISATU OUTPATIEN 6 6 CARE CAPO T VISIT ASSOCIATE 15 S MINUTES OFFICE 21307 FAMILY CROWDY OUTPATIEN 6 6 CARE CRI T VISIT ASSOCIATE 15 S MINUTES OFFICE 90167 FAMILY CROWDY OUTPATIEN 6 6 CARE CRI T VISIT ASSOCIATE 15 S MINUTES OFFICE 95374 PROGRESSI RHODA OUTPATIEN 6 6 VE LARRY T NEW 30 PODIATRY MINUTES EMERGENCY 09874 NINI 6 6 [facility] LOW/MODER SEVERITY EMERGENCY 99202 TORSTEN NAYLOR 6 6 PHYSICIAN [place] [facility] T VISIT MODERATE SEVERITY HOSPITAL NINI - 6 6 [facility] OUTPATIEN INC T OFFICE 46751 MICHELA ABERNATHY OUTPATIEN 6 6 GRE GRE T VISIT 15 MINUTES EMERGENCY 20760 NINI 6 6 [facility] DEPARTMEN INC T VISIT LOW/MODER SEVERITY HOSPITAL NINI - 6 6 [facility] OUTPATIEN INC T OFFICE 81743 FAMILY CROWDY OUTPATIEN 5 5 CARE CRI T VISIT ASSOCIATE 15 S MINUTES OFFICE 29443 FAMILY ISATU OUTPATIEN 5 5 CARE CAPO T VISIT ASSOCIATE 15 S MINUTES HOSPITAL NINI - 5 5 [facility] OUTPATIEN INC T EMERGENCY 75675 NINI 5 5 [facility] DEPARTMEN INC T VISIT LIMITED/M INOR PROB EMERGENCY 59888 TORSTEN THOMPSON 5 [address] [facility] T VISIT MODERATE SEVERITY OFFICE [address] [facility]PAT[facility]EN 5 5 [facility]UTES HOSPITAL NINI - 5 5 [facility] OUTPATIEN INC T OFFICE 09557 FAMILY MULBERRY OUTPATIEN 5 5 CARE TYRON T VISIT ASSOCIATE 15 S MINUTES OFFICE 58404 FAMILY CROWDY OUTPATIEN 5 5 CARE CRI T VISIT ASSOCIATE 15 S MINUTES OFFICE 90557 NINI FRYMAN OUTPATIEN 5 5 [facility] T VISIT HOSPITAL 15 MINUTES OFFICE 82071 FAMILY CROWDY OUTPATIEN 5 5 CARE CRI T VISIT ASSOCIATE 15 S MINUTES HOSPITAL NINI - 5 5 [facility] OUTPATIEN INC T OFFICE 64023 NINI FRENCHYMAN OUTPATIEN 5 5 [facility] T VISIT HOSPITAL 15 MINUTES OFFICE 27757 ANNIE RUFINO ANT OUTPATIEN 5 5 MEDICAL T VISIT SERV 15 FOUNDATIO MINUTES N OFFICE 67736 [facility] GABRIELLE OUTPATIEN 4 4 PHYSICIAN TONG T VISIT S GROUP 15 MINUTES OFFICE 91209 [facility] RONNIE OUTPATIEN 4 4 PHYSICIAN MADDIE T NEW 20 S GROUP MINUTES HOSPITAL NINI - 4 4 [facility] OUTPATIEN INC T OFFICE 72369 [place] RUFINO ANT OUTPATIEN 4 4 MEDICAL T NEW 45 SERV MINUTES FOUNDATIO N EMERGENCY 49253 [facility] 4 4 BRENT IMT DEPARTMEN EMERGENCY T VISIT PHYS MODERATE SEVERITY OFFICE 20767 FAMILY OUTPATIEN 4 4 CARE T VISIT ASSOCIATE 15 S MINUTES HOSPITAL NINI - 4 4 [facility] OUTPATIEN INC T OFFICE 54558 FAMILY BIBIANA OUTPATIEN 4 4 CARE R H T VISIT ASSOCIATE 15 S MINUTES HOSPITAL NINI - 4 4 [facility] OUTPATIEN INC T EMERGENCY 77069 [facility]IS ALFARIS 4 4 [facility] DEPARTMEN T VISIT HIGH/URGE NT SEVERITY EMERGENCY 49069 [facility] 4 4 BRENT DEPARTMEN EMERGENCY T VISIT PHYS HIGH/URGE NT SEVERITY HOSPITAL NINI - 4 4 [facility] OUTPATIEN INC T EMERGENCY 37106 INDIRA CARVAJAL 4 4 DEPARTMEN T VISIT MODERATE SEVERITY OFFICE 61385 FAMILY OUTPATIEN 4 4 CARE T VISIT ASSOCIATE 15 S MINUTES OFFICE 90104 MICHELA ABERNATHY OUTPATIEN 4 4 GRE GRE T NEW 45 MINUTES OFFICE 83019 ISATU LUNSFORD J OUTPATIEN 4 4 G G T VISIT 15 MINUTES EMERGENCY 06150 INDIRA CARVAJAL 4 4 DEPARTMEN T VISIT MODERATE SEVERITY HOSPITAL NINI - 4 4 [facility] OUTPATIEN INC T EMERGENCY 14897 NINI 4 4 [facility] DEPARTMEN INC T VISIT LIMITED/M INOR PROB EMERGENCY 24625 HARDY DASH 4 4 BRO BRO DEPARTMEN T VISIT MODERATE SEVERITY EMERGENCY 33358 YARELI KASIA YARELI KASIA 4 4 DEPARTMEN T VISIT MODERATE SEVERITY HOSPITAL NINI - 4 4 [facility] OUTPATIEN INC T HOSPITAL NINI - 4 4 [facility] OUTPATIEN INC T OFFICE 08905 FAMILY OUTPATIEN 4 4 CARE T VISIT ASSOCIATE 15 S MINUTES OFFICE 44933 FAMILY OUTPATIEN 4 4 CARE T VISIT ASSOCIATE 15 S MINUTES OFFICE 30359 MULBERRY MULBERRY OUTPATIEN 4 4 TYRON TYRON T VISIT 15 MINUTES EMERGENCY 39825 RONNIE TRUJILLO 4 4 MADDIE MADDIE DEPARTMEN T VISIT HIGH/URGE NT SEVERITY OFFICE 06430 ISATU Harris OUTPATIEN 4 4 G G T VISIT 15 MINUTES OFFICE 09723 MULBERRY MULBERRY OUTPATIEN 3 3 TYRON TYRON T VISIT 10 MINUTES OFFICE 94842 NINI PARSONSPATIEN 3 [address] [facility] [address] MINUTES OFFICE 40338 FAMILY OUTPATIEN 3 3 CARE T VISIT ASSOCIATE 15 S MINUTES Emergency NELIA Trujillo MD (ER) 3 23:30 3 23:51 [facility] EMERGENCY 70187 RONNIE TRUJILLO 3 3 MADDIE MADDIE DEPARTMEN T VISIT MODERATE SEVERITY OFFICE 77304 FAMILY OUTPATIEN 3 3 CARE T VISIT ASSOCIATE 15 S MINUTES OFFICE 46268 FAMILY OUTPATIEN 3 3 CARE T VISIT ASSOCIATE 15 S MINUTES OFFICE 46096 FAMILY OUTPATIEN 3 3 CARE T VISIT ASSOCIATE 15 S MINUTES OFFICE 90395 ISATU Harris OUTPATIEN 3 3 G G T VISIT 15 MINUTES OFFICE 59696 MULBERRY MULBERRY OUTPATIEN 3 3 TYRON TYRON T VISIT 15 MINUTES OFFICE 21665 FAMILY OUTPATIEN 3 3 CARE T VISIT ASSOCIATE 15 S MINUTES OFFICE 79360 FAMILY OUTPATIEN 3 3 CARE T VISIT ASSOCIATE 15 S MINUTES OFFICE 04045 MULBERRY MULBERRY OUTPATIEN 3 3 TYRON TYRON T VISIT 15 MINUTES OFFICE 29097 FAMILY OUTPATIEN 3 3 CARE T VISIT ASSOCIATE 15 S MINUTES OFFICE 44361 FAMILY OUTPATIEN 3 3 CARE T VISIT ASSOCIATE 15 S MINUTES Emergency NELIA Trujillo MD (ER) 3 19:50 3 21:16 [facility] EMERGENCY 75339 NINI 3 3 [facility] DEPARTMEN INC T VISIT LOW/MODER SEVERITY EMERGENCY 79346 RONNIE TRUJILLO 3 3 [facility] DEPARTMEN T VISIT MODERATE SEVERITY HOSPITAL NINI - 3 3 [facility] OUTPATIEN INC T OFFICE 65872 FAMILY OUTPATIEN 3 3 CARE T VISIT ASSOCIATE 15 S MINUTES Emergency NELIA Trujillo MD (ER) 3 20:01 3 21:15 [facility] NINI - 3 3 [facility] OUTPATIEN INC T EMERGENCY 64086 NINI 3 3 [facility] DEPARTMEN INC T VISIT LOW/MODER SEVERITY EMERGENCY 04874 RONNIE TRUJILLO 3 3 [facility] DEPARTMEN T VISIT MODERATE SEVERITY OFFICE 80122 MULBERRY MULBERRY OUTPATIEN 3 3 T[facility]ON TYRON T VISIT 15 MINUTES OFFICE 97512 MULBERRY MULBERRY OUTPATIEN 3 3 T[facility]ON TYRON T VISIT 15 MINUTES HOSPITAL NINI - 3 3 [facility] T OFFICE 83046 BIBIANA BIBIANA OUTPATIEN 3 3 R H R H T VISIT 15 MINUTES OFFICE 73363 FAMILY OUTPATIEN 3 3 CARE T VISIT ASSOCIATE 15 S MINUTES OFFICE 31907 FAMILY OUTPATIEN 2 2 CARE T VISIT ASSOCIATE 15 S MINUTES OFFICE 66537 FAMILY OUTPATIEN 2 2 CARE T VISIT ASSOCIATE 15 S MINUTES EMERGENCY 55438 RONNIE RONNIE 2 2 [facility] DEPARTMEN T VISIT MODERATE SEVERITY HOSPITAL NINI - 2 2 [facility] T EMERGENCY 41235 NINI 2 2 [facility] DEPARTMEN INC T VISIT LIMITED/M INOR PROB OFFICE 53234 BIBIANA BIBIANA OUTPATIEN 2 2 R H R H T VISIT 15 MINUTES OFFICE 93918 ISATU Harris OUTPATIEN 2 2 G G T VISIT 15 MINUTES EMERGENCY 60798 NINI 2 2 [facility] DEPARTMEN INC T VISIT LOW/MODER SEVERITY HOSPITAL NINI - 2 2 [facility] T EMERGENCY 24887 R[facility] HOLLANDEY 2 2 [facility] SEVERITY OFFICE 83079 FAMILY OUTPATIEN 2 2 CARE T VISIT ASSOCIATE 15 S MINUTES OFFICE 01500 BIBIANA BIBIANA OUTPATIEN 2 2 R H R H T VISIT 15 MINUTES EMERGENCY 91454 NINI 2 2 [facility] DEPARTMEN INC T VISIT LIMITED/M INOR PROB EMERGENCY 91446 RONNIE HOLLANDEY 2 2 [facility]ATE SEVERITY H[facility] NINI - 2 2 [facility] OUTPATIEN INC T OFFICE 47226 FAMILY OUTPATIEN 2 2 CARE T VISIT ASSOCIATE 15 S MINUTES HOSPITAL NINI - 2 2 [facility] OUTPATIEN INC T HOSPITAL NINI - 2 2 [facility] OUTPATIEN INC T EMERGENCY 66762 NINI 2 2 [facility] DEPARTMEN INC T VISIT LOW/MODER SEVERITY EMERGENCY 03949 MICHELA CARVAJAL 2 2 [facility] DEPARTMEN SERVICES T VISIT HIGH/URGE NT SEVERITY EMERGENCY 94865 MICHELA PAT 2 2 EMERG[facility]Y [facility] DEPARTMEN SERVICES T VISIT MODERATE SEVERITY EMERGENCY 78106 NINI 2 2 [facility] T VISIT MODERATE SEVERITY EMERGENCY 44496 RONNIE TRUJILLO 2 2 [facility] DEPARTMEN T VISIT HIGH/URGE NT SEVERITY HOSPITAL NINI - 2 2 [facility] T OFFICE 83096 FAMILY OUTPATIEN 2 2 CARE T VISIT ASSOCIATE 15 S MINUTES OFFICE 91647 FAMILY OUTPATIEN 2 2 CARE T VISIT ASSOCIATE 15 S MINUTES HOSPITAL NINI - 2 2 [facility] T EMERGENCY 47746 MICHELA TRUJILLO 2 2 [facility] DEPARTMEN SERVICES T VISIT MODERATE SEVERITY EMERGENCY 43696 NINI 2 2 [facility] INC T VISIT LOW/MODER SEVERITY EMERGENCY 67710 NINI 2 2 [facility] INC T VISIT MODERATE SEVERITY [facility]OSP[facility] NINI - 2 2 [facility] NINI - 2 2 [facility] T OFFICE 50377 STRAWZELL STRAWZELL OUTPATIEN 2 2 CRI CRI T VISIT 15 MINUTES OFFICE 95475 STRAWZELL STRAWZELL OUTPATIEN 2 2 CRI CRI T VISIT 15 MINUTES HOSPITAL NINI - 2 2 [facility] T OFFICE 37612 STRAWZELL STRAWZELL OUTPATIEN 2 2 CRI CRI T VISIT 15 MINUTES OFFICE 48181 MULBERRY MULBERRY OUTPATIEN 2 2 TYRON TYRON T VISIT 15 MINUTES HOSPITAL NINI - 2 2 [facility] T EMERGENCY 96369 NINI 2 2 [facility] DEPARTMEN INC T VISIT LOW/MODER SEVERITY EMERGENCY 70732 MICHELA TRUJILLO 2 2 [facility]ER[facility] DEPARTMEN SERVICES T VISIT MODERATE SEVERITY OFFICE 31108 FAMILY [place] OUTPATIEN 1 1 CARE R H T VISIT ASSOCIATE 15 S MINUTES HOSPITAL NINI - 1 1 [facility] INC T OFFICE 96345 STRAWZELL STRAWZELL OUTPATIEN 1 1 CRI CRI T VISIT 15 MINUTES OFFICE 92088 STRAWZELL STRAWZELL OUTPATIEN 1 1 CRI CRI T VISIT 15 MINUTES HOSPITAL NINI - 1 1 [facility] OUTPATIEN INC T EMERGENCY 65528 CARDOSO JOSE F CARDOSO JOSE F 1 1 DEPARTMEN T VISIT HIGH/URGE NT SEVERITY EMERGENCY 92026 NINI 1 1 [facility] DEPARTMEN INC T VISIT LOW/MODER SEVERITY OFFICE 79090 FAMILY [place] OUTPATIEN 1 1 CARE R H T VISIT ASSOCIATE 15 S MINUTES HOSPITAL NINI - 1 1 [facility] INPATIENT INC OFFICE 26028 FAMILY [place] OUTPATIEN 1 1 CARE R H T VISIT ASSOCIATE 25 S MINUTES EMERGENCY 21522 MICHELA TRUJILLO 1 1 EMER[facility] DEPARTMEN SERVICES T VISIT HIGH/URGE NT SEVERITY HOSPITAL NINI - 1 1 [facility] INC T EMERGENCY 69776 NINI 1 1 [facility] INC T VISIT LOW/MODER SEVERITY EMERGENCY 89311 [facility] LIMITED/M INOR PROB EMERGENCY 80890 MICHELA POWER 1 1 [facility] MODERATE SEVERITY [facility] - [facility] 1 [facility] INC T EMERGENCY 56657 MICHELA KOHLER 1 1 EMERGENCY DEPARTMEN SERVICES T VISIT MODERATE SEVERITY HOSPITAL NINI - 1 1 [facility] OUT[facility] INC T EMERGENCY 34738 NINI 1 1 [facility] DEPARTMEN INC T VISIT LOW/MODER SEVERITY OFFICE 83239 FAMILY MULBERRY OUTPATIEN 1 1 CARE TYRON T VISIT ASSOCIATE 15 S MINUTES EMERGENCY 77293 MICHELA TINAJERO 1 1 [facility] HIGH/URGE NT SEVERITY HOSP[facility] NINI - 1 1 [facility] OUTPATIEN INC T EMERGENCY 45269 NINI 1 1 [facility] DEPARTMEN INC T VISIT LOW/MODER SEVERITY [facility]OSPITAL NINI - 1 1 [facility] OUTPATIEN INC T EMERGENCY 37158 NINI 1 1 [facility] DEPARTMEN INC T VISIT LOW/MODER SEVERITY EMERGENCY 31893 MICHELA TRUJILLO 1 1 EMERGENCY [facility] SERVICES T VISIT HIGH/URGE NT SEVERITY HOSPITAL NINI - 0 0 [facility] OUTPATIEN INC T EMERGENCY 84775 NINI 0 0 [facility] DEPARTMEN INC T VISIT LOW/MODER SEVERITY HOSPITAL NINI - 0 0 [facility] OUTPATIEN INC T EMERGENCY 47010 NINI 0 0 [facility] DEPARTMEN INC T VISIT LOW/MODER SEVERITY EMERGENCY 13966 MICHELA POWER 0 0 [facility]Y III [facility]ISIT MODERATE SEVERITY OFFICE 87209 FAMILY [place] OUTPATIEN 0 0 CARE R H T VISIT ASSOCIATE 15 S MINUTES OFFICE 22411 FAMILY ISATU J OUTPATIEN 0 0 CARE T VISIT ASSOCIATE 15 S MINUTES EMERGENCY 94625 MICHELA TINAJERO 0 0 EMERGENCY DEPARTMEN SERVICES T VISIT MODERATE SEVERITY HOSPITAL NINI - 0 0 [facility] OUTPATIEN INC T EMERGENCY 42417 NINI 0 0 [facility] DEPARTMEN INC T VISIT LIMITED/M INOR PROB EMERGENCY 22888 NINI 0 0 [facility] DEPARTMEN INC T VISIT MODERATE SEVERITY HOSPITAL NINI - 0 0 [facility] OUTPATIEN INC T HOSPITAL NINI - 0 0 [facility] OUTPATIEN INC T EMERGENCY 69057 MICHELA TRUJILLO DEPT 0 0 EMERGENCY [facility] VISIT SERVICES HIGH SEVERITY& THREAT FUNJ EMERGENCY 44692 NINI 0 0 [facility] DEPARTMEN INC T VISIT LOW/MODER SEVERITY EMERGENCY 64375 MICHELA MURILLO 0 0 EMERGENCY GRE DEPARTMEN SERVICES T VISIT MODERATE SEVERITY HOSPITAL NINI - 0 0 [facility] OUTPATIEN INC T EMERGENCY 08390 NINI 0 0 [facility] DEPARTMEN INC T VISIT LOW/MODER SEVERITY OFFICE 85740 Steven MEJÍA OUTPATIEN 0 0 CARE G T VISIT ASSOCIATE 15 S MINUTES HOSPITAL NINI - 0 0 [facility] OUTPATIEN INC T OFFICE 63620 AMBROSE VEGA 9 9 VISION TONNY A T VISIT 10 MINUTES EMERGENCY 03897 MICHELA TRUJILLO, [address] [facility] SERVICES T VISIT MODERATE ASSOCIATE SEVERITY S HOSPITAL NINI - 9 9 [facility] OUTPATIEN [facility] T EMERGENCY 04362 NINI 9 9 [facility] DEPARTMEN INC T VISIT LOW/MODER SEVERITY EMERGENCY 39774 MICHELA TRUJILLO, 9 9 EMERGENCY [facility] SERVICES T VISIT MODERATE ASSOCIATE SEVERITY S HOSPITAL NINI - 9 9 [facility] OUTPATIEN INC T EMERGENCY 12800 NINI 9 9 [facility] V[facility] LIMITED/M INOR PROB EMERGENCY 73519 [facility], 9 [address] [facility] EMERGENCY T VISIT PHYS INC LOW/MODER SEVERITY EMERGENCY 48548 NINI 8 8 [facility] DEPARTMEN INC T VISIT LOW/MODER SEVERITY HOSPITAL NINI - 8 8 [facility] OUTPATIEN INC T EMERGENCY 50282 LALITHA ELLIOTT, 8 8 [facility] VISIT ON MODERATE SEVERITY [facility]PITAL NINI - 8 8 [facility] OUTPATIEN INC T EMERGENCY 00650 NINI 8 8 [facility] MODERATE SEVERITY OFFICE 64379 AMBROSE ARAUJO 8 8 CARE ANDREW T T VISIT ASSOCIATE 15 S MINUTES OFFICE 48757 AMBROSE YATES 8 8 CARE Hope COSTELLO T VISIT ASSOCIATE 15 S MINUTES
--- OUTSIDE RECORDS SUMMARY | 2017-05-18 15:24 | External Medical Summary Rpt | CCD ---
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 6 CARE CAPO COMPLETE ASSOCIATE AUTO&AUTO S DIFRNTL WBC COLLECTIO 91065 FAMILY FAMILY N 6 CARE CARE CAPILLARY ASSOCIATE ASSOCIATE BLOOD S S SPECIMEN BLOOD 52715 FAMILY CROWDY COUNT 6 CARE CRI COMPLETE ASSOCIATE AUTO&AUTO S DIFRNTL WBC CULTURE 20269 COMBINED COMBINED BACTERIAL 6 PHYSICIAN PHYSICIAN S LA S LA QUANTTATI VE COLONY COUNT URINE RADIOLOGI 39852 [facility] COR[facility] ALL C 6 MEDICAL EXAMINATI IMAGING ON FOOT 2 ASS VIEWS DETERMINA 72813 MICHELADWAYNE ABERNATHY TION 6 GRE GRE REFRACTIV E STATE BLOOD 42904 FAMILY FAMILY COUNT 5 CARE CARE COMPLETE ASSOCIATE ASSOCIATE AUTO&AUTO S S DIFRNTL WBC RADIOLOGI 16400 [facility] CORTE[facility] ALL C EXAM 5 MEDICAL CHEST 2 IMAGING VIEWS ASS FRONTAL&L ATERAL IIV4 VACC 89827 [facility] VIRUS 0.5 HLTH DEPT HLTH DEPT ML [place] [address] N[facility]I TER[facility] LIPASE 5 [facility] INC INC BLOOD 77622 N[facility] TER[facility] COUNT 5 [facility] COMPLETE INC INC AUTO&[place] [address] N[facility] AMYLASE 5 [place] [address] N[facility] THYROID 5 [facility] STIMULATI INC INC NG HORMONE TSH COLLECTIO 76445 N[facility] TER[facility] N VENOUS 5 [facility] BLOOD INC INC VENIPUNCT URE COMPREHEN 53411 N[facility] SIVE 5 [facility] METABOLIC INC INC PANEL RADEX 23186 [facility] BEINEKE ABDOMEN 5 MEDICAL DELMIS COMPL IMAGING W/DCBTS&/ ASS ERC VIEWS RADEX 99735 AMBERLY RAMÍREZUTCHER HAND 5 MEDICAL SARANYA MINIMUM 3 IMAGING VIEWS ASS BLOOD 56329 FAMILY FAMILY COUNT 5 CARE CARE COMPLETE ASSOCIATE ASSOCIATE AUTO&AUTO S S DIFRNTL WBC RADIOLOGI 15732 [facility] C EXAM 5 [facility] CHEST 2 INC INC VIEWS FRONTAL&L ATERAL IAADIADOO 98691 [facility] NIXON 4 PHYSICIAN [place] [address] P&C LABS, [facility] SURG 4 [facility] PATHOLOGY GROSS&MADDIE ROSCOPIC EXAM EGD 49015 NINI TERRAZAS TRANSORAL 4 [facility] BIOPSY INC INC SINGLE/MU LTIPLE SPECIAL 49032 [facility] STAIN 4 [facility] GROUP 1 MICROORGA NISMS I&R IMMUNOASS 78275 LAB EDITA LAB EDITA AY 4 ELIS ELIS ANALYTE HOLDINGS HOLDINGS QUAL/[place] [address] LAB EDITA LAB EDIAT GAMMAGLOB 4 ELIS ELIS ULIN IGA HOLDINGS HOLDINGS IGD IGG IGM EACH ANTIBODY 18682 COMBINED COMBINED HELICOBAC [address] S LA S LA PYLORI FLUORESCE 55133 LAB EDITA LAB EDITA NT 4 ELIS ELIS NONNFCT HOLDINGS HOLDINGS AGT ANTB SCREEN EA ANTIBODY RADEX 77944 AMBERLY RAMÍREZUTCHER UPPER GI 4 MEDICAL SARANYA W/WO IMAGING GLUCAGON/ ASS DELAY IMGES W/O KUB RADEX 83553 [facility] UPPER GI 4 [facility] W/WO INC INC GLUCAGON/ DELAY IMAGES W/KUB HEPATOBIL 19971 NINI TERRAAZS SYST 4 [facility] IMAG INC INC INC GB W/PHARMA INTERVENJ INJECTION J2805 N[facility] TER[facility]AS 4 [facility] SINCALIDE INC INC 5 MICROGRAM S TECHNETIU A9537 NINI TERRAZ[facility] M TC-99M 4 [facility] MEBROFENI INC INC N DX UP TO [address] [place] [address] ERIC ERIC ABDOMINAL 4 SARANYA SARANYA REAL TIME W/IMAGE LIMITED COMPREHEN 33469 COMBINED COMBINED SIVE 4 PHYSICIAN PHYSICIAN [place] [address] LAB EDITA LAB EDITA LIPASE 4 [facility] HOLDING BLOOD 69660 ISATU Harris COUNT 4 G G COMPLETE AUTO&[place] [address] COMBINED COMBINED AMYLASE 4 PHYSICIAN PHYSICIAN S LA S LA COMPRE 03522 TONY JIMENEZ AUDIOMETR 4 ALENA CARVAJAL Y THRESHOLD EVAL SP RECOGNIJ TYMPANOME 04441 TONY TONY TRY 4 ALENA ALENA INJECTION J2405 NINI TERRAZAS 4 [facility] ONDANSETR INC INC ON HCL PER 1 MG TYMPANOST 62507 MONGIARDO MONGIARDO ALEX 4 FRA FRA GENERAL ANESTHESI A ANES 58542 [facility] XTRNL MID 4 ANESTH & INNER OF THE EAR W/BX BLUE TYMPANOTO MY ECG 84422 NINI TERRA[facility]AS ROUTINE 4 [facility] ECG INC INC W/LEAST 12 LDS TRCG ONLY W/O I&R ECG 31305 SINDHU MANLEY ROUTINE 4 KASIA KASIA ECG W/LEAST 12 LDS I&R ONLY RADIOLOGI 81989 ERIC DUNNECHER C EXAM 4 SARANYA SARANYA CHEST 2 VIEWS FRONTAL&L ATERAL BASIC 91031 N[facility]I TER[facility] METABOLIC 4 [facility] PANEL INC INC CALCIUM TOTAL BLOOD 51873 NINI TERRAZAS COUNT 4 [facility] COMPLETE INC INC AUTO&AUTO DIFRNTL WBC DETERMINA 54511 MICHELA ROONEY 4 GRE GRE REFRACTIV E STATE OPHTH 72459 [facility] 4 GRE GRE XM&EVAL COMPRE NEW PT 1/> VST COLLECTIO 31456 MULBERRY MULBERRY N 4 TYRON TYRON CAPILLARY BLOOD SPECIMEN BLOOD 26708 MULBERRY MULBERRY COUNT 4 TYRON TYRON COMPLETE AUTO&AUTO DIFRNTL WBC BLOOD 34178 ISATU Harris COUNT 4 G G COMPLETE AUTO&AUTO DIFRNTL WBC COLLECTIO 59683 ISATU Harris N 4 G G CAPILLARY BLOOD SPECIMEN IAADIADOO 00593 ISATU Harris 4 G G INFLUENZA SIMPLE 45467 NIXON NIXON REPAIR 3 MADDIE MADDIE SCALP/NEC K/AX/SHERLY T/TRUNK 2.5CM/< SUSCEPTIB 85563 COMBINED COMBINED ILITY 3 PHYSICIAN PHYSICIAN STUDY S LA S LA ANTIMICRO BIAL DISK METHOD INCISION 05432 FAMILY FAMILY & 3 CARE CARE DRAINAGE ASSOCIATE ASSOCIATE ABSCESS S S COMPLICAT ED/MULTIP LE CUL BACT 88997 COMBINED COMBINED XCPT 3 PHYSICIAN PHYSICIAN URINE S LA S LA BLOOD/STO OL AEROBIC ISOL CUL BACT 68744 COMBINED COMBINED XCPT 3 PHYSICIAN PHYSICIAN URINE S LA S LA BLOOD/STO OL AEROBIC ISOL CUL BACT 19002 COMBINED COMBINED XCPT 3 PHYSICIAN PHYSICIAN URINE S LA S LA BLOOD/STO OL AEROBIC ISOL SUSCEPTIB 47943 COMBINED COMBINED ILITY 3 PHYSICIAN PHYSICIAN STUDY S LA S LA ANTIMICRO BIAL DISK METHOD REMOVAL 26146 FAMILY FAMILY IMPACTED 3 CARE CARE CERUMEN ASSOCIATE ASSOCIATE INSTRUMEN S S TATION UNILAT URNLS DIP 32384 MULBERRY MULBERRY 3 TYRON TYRON STICK/TAB LET RGNT NON-AUTO W/O MICRSCP CUL BACT 49435 COMBINED COMBINED XCPT 3 PHYSICIAN PHYSICIAN URINE S LA S LA BLOOD/STO OL AEROBIC ISOL RADIOLOGI 59622 ERIC ERIC C EXAM 3 SARANYA SARANYA CHEST 2 VIEWS FRONTAL&L ATERAL BLOOD 93500 BIBIANA BIBIANA COUNT 3 R H R H COMPLETE AUTO&AUTO DIFRNTL WBC CUL BACT 12465 COMBINED COMBINED XCPT 2 PHYSICIAN PHYSICIAN URINE S LA S LA BLOOD/STO OL AEROBIC ISOL SUSCEPTIB 75446 COMBINED COMBINED ILITY 2 PHYSICIAN PHYSICIAN STUDY S LA S LA ANTIMICRO BIAL DISK METHOD BLOOD 31200 BIBIANA BIBIANA COUNT 2 R H R H COMPLETE AUTO&AUTO DIFRNTL WBC BLOOD 11562 ISATU LUNSFORD J COUNT 2 G G COMPLETE AUTO&AUTO DIFRNTL WBC CUL BACT 10742 NINI TER[facility]AS AEROBIC 2 [facility] ADDL INC INC METHS DEFINITIV E EA ISOL SUSCEPTIB 44442 NINI TERRAZAS LTY STDY 2 [facility] ANTIMICRB INC INC IAL MICRO/AGA R DILUTJ CUL BACT 98866 NINI TERRAZAS XCPT 2 [facility] URINE INC INC BLOOD/STO OL AEROBIC ISOL CUL BACT 57099 NINI TERRAZAS XCPT 2 [facility] URINE INC INC BLOOD/STO OL AEROBIC ISOL SUSCEPTIB 11210 NINI TERRAZAS LTY STDY 2 [facility] ANTIMICRB INC INC IAL MICRO/AGA R DILUTJ CUL BACT 00871 NINI TER[facility] AEROBIC 2 [facility] ADDL INC INC METHS DEFINITIV E EA ISOL RADIOLOGI 32243 NINI TER[facility] C EXAM 2 [facility] CHEST 2 INC INC VIEWS FRONTAL&L ATERAL RADEX 24756 NINI TERRAZAS RIBS 2 [facility] UNILATERA INC INC L 2 VIEWS RADEX 99075 [place] [facility] RIBS UNI 2 MEDICAL SARANYA W/POSTERO IMAGING ANT CH ASS MINIMUM 3 VIEWS REMOVAL 14938 BIBIANA BIBIANA IMPACTED 2 R H R H CERUMEN INSTRUMEN TATION UNILAT URNLS DIP 08483 BIBIANA BIBIANA 2 R H R H STICK/TAB LET RGNT NON-AUTO W/O MICRSCP URNLS DIP 14540 N[facility]I TERRA[facility]AS 2 [facility] STICK/TAB INC INC LET REAGENT AUTO MICROSCOP Y URNLS DIP 06364 NINI TERRAZAS 2 [facility] STICK/TAB INC INC LET REAGENT AUTO MICROSCOP Y COMPREHEN 10662 NINI TERRA[facility]AS SIVE 2 [facility] METABOLIC INC INC PANEL RADIOLOGI 34723 NINI TER[facility] C EXAM 2 [facility] CHEST 2 INC INC VIEWS FRONTAL&L ATERAL BLOOD 96701 NINI TERRAZAS COUNT 2 [facility] COMPLETE INC INC AUTO&AUTO DIFRNTL WBC RADEX 54245 NINI TERRA[facility]AS HAND 2 [facility] MINIMUM 3 INC INC VIEWS IM ADM 63950 NIN[facility] TER[facility] PRQ ID 2 [facility] SUBQ/IM INC INC NJXS 1 VACCINE TDAP 40154 NINI TERRAZAS VACCINE 7 2 [facility] YRS/> IM INC INC COMPREHEN 95633 COMBINED COMBINED SIVE 2 PHYSICIAN PHYSICIAN METABOLIC S LA S LA PANEL ANTIBODY 14629 COMBINED COMBINED HELICOBAC [address] S LA S LA PYLORI 05326 [place] [facility] ABDOMINAL 2 MEDICAL SARANYA REAL IMAGING [place] ASS W/[place] [address] COMBINED COMBINED AMYLASE 2 [place] [address] LAB EDITA LAB EDITA LIPASE 2 AMERIC [employer]INGS HOLDING BLOOD 25302 STRAWZELL STRAWZELL COUNT 2 CRI CRI COMPLETE AUTO&AUTO DIFRNTL WBC BLOOD 10633 STRAWZELL STRAWZELL COUNT 2 CRI CRI COMPLETE AUTO&AUTO DIFRNTL WBC RADEX 44012 [place] [facility] ABDOMEN 2 MEDICAL SARANYA COMPL IMAGING W/DCBTS&/ ASS ERC VIEWS RADIOLOGI 83966 [place] [facility] C EXAM 2 MEDICAL SARANYA CHEST 2 IMAGING VIEWS ASS FRONTAL&L ATERAL BLOOD 45558 STRAWZELL STRAWZELL COUNT 2 CRI CRI COMPLETE AUTO&AUTO DIFRNTL WBC BLOOD 24199 STRAWZELL STRAWZELL COUNT 1 CRI CRI COMPLETE AUTO&AUTO DIFRNTL WBC RADIOLOGI 55293 [place] [facility] C EXAM 1 MEDICAL SARANYA CHEST 2 IMAGING VIEWS ASS FRONTAL&L ATERAL BLOOD 53531 STRAWZELL STRAWZELL COUNT 1 CRI CRI COMPLETE AUTO&AUTO DIFRNTL WBC COMPREHEN 47734 COMBINED COMBINED SIVE 1 PHYSICIAN PHYSICIAN METABOLIC S LA S LA PANEL IAADI 07389 NINI TERRAZAS INFLUENZA 1 [facility] B VIRUS INC INC IAADI 47381 NINI TERRA[facility]AS INFFLUENZ 1 [facility] A A VIRUS INC INC OBSERVATI 12677 FAMILY MCCARTY ON CARE 1 CARE R [facility] 14345 [facility] REYES EXAM 1 MEDICAL SARANYA CHEST 2 IMAGING VIEWS ASS FRONTAL&L ATERAL INITIAL 11783 FAMILY BIBIANA OBSERVATI 1 CARE R H ON ASSOCIATE CARE/DAY S 50 MINUTES INCISION 55274 MICHELA ALICEA & 1 EMERGENCY MADDIE DRAINAGE SERVICES ABSCESS COMPLICAT ED/MULTIP LE SUSCEPTIB 41349 NINI TERRA[facility] LTY STDY 1 [facility] ANTIMICRB INC INC IAL MICRO/AGA R DILUTJ CUL BACT 39709 NINI TERRAZAS XCPT 1 [facility] URINE INC INC BLOOD/STO OL AEROBIC ISOL OTH 8604 NINI TERRAZAS INCISION 1 [facility] W/DRAINAG INC INC E SKIN&SUBC UTANEOUS TISSUE CUL BACT 07889 NINI TERRA[facility]AS AEROBIC 1 [facility] ADDL INC INC METHS DEFINITIV E EA ISOL IADNA 56965 MEDICAL MEDICAL CHLAMYDIA 1 [facility] TRACHOMAT IS AMPLIFIED PROBE TQ IADNA NOS 71599 MEDICAL MEDICAL 1 DIAGNOSTI DIAGNOSTI AMPLIFIED [facility] PROBE TQ EACH ORGANISM IADNA 56534 MEDICAL MEDICAL HERPES 1 [facility]NOST[facility] SOMPLX [facility] VIRUS AMPLIFIED PROBE TQ IADNA 55626 MEDICAL MEDICAL NEISSERIA 1 DIAGNOSTI DIAGNOSTI [facility] GONORRHOE AE AMPLIFIED PROBE TQ IAADI 46554 N[facility]I TER[facility] INFLUENZA 1 [facility] B VIRUS INC INC IAADI 14409 NINI TER[facility] INFFLUENZ 1 [facility] A A VIRUS INC INC IAADI 70125 NINI TERRA[facility] INFFLUENZ 0 [facility] A A VIRUS INC INC IAADI 38435 NINI TERRAZAS INFLUENZA 0 [facility] [place] [address] NINI TERRA[facility]AS STREPTOCO 0 [facility] CCUS INC INC GROUP A 3D 02047 N[facility]I TERRA[facility] RENDERING 0 [facility] W/INTERP INC INC & POSTPROCE SS SUPERVISI ON SIMPLE 46373 MICHELA NIXON REPAIR 0 EMERGENCY MADDIE F/E/E/N/L SERVICES /M 2.5CM/< [place] [address] [place] [facility] MAXILLOFA 0 MEDICAL SARANYA CIAL W/[place] [address] [place] [facility] CERVICAL 0 MEDICAL SARANYA SPINE W/[place] [address] [place] [facility] HEAD/BRAI 0 MEDICAL SARANYA N W/O IMAGING CONTRAST ASS MATERIAL 3D 75782 NINI TERRAZAS RENDERING 0 [facility] INC INC W/INTERP& POSTPROC DIFF WORK STATION LINEAR 0881 NINI TERRAZAS REPAIR OF 0 [facility] INC INC LACERATIO N OF EYELID OR EYEBROW RADEX 27933 [place] [facility], SPINE 0 MEDICAL MARK THORACIC IMAGING 3 VIEWS ASSOCIATE S RADEX 09365 [place] [facility], SPINE 0 MEDICAL MARK LUMBOSACR IMAGING AL ASSOCIATE MINIMUM 4 S VIEWS [facility] 69714 [facility] STEPHEN, REPAIR 9 BRENT KATHIE B SCALP/NEC EMERGENCY K/AX/SHERLY PHYS INC T/TRUNK 2.5CM/< Encounters Encounter Start End Date Code Location Performer Type Date OFFICE 96985 SANIYA PARSONSPATIEN 7 7 GROUND T NEW 45 FAMILY MINUTES [facility] NINI - 7 7 [facility] OUTPATIEN INC T OFFICE 00109 [facility] LINO BOGGS 7 7 PHYSICIAN T VISIT S GROUP 10 MINUTES [facility] NINI - 7 7 [facility] OUTPATIEN INC T OFFICE 90149 [facility] 7 7 PHYSICIAN T VISIT S GROUP 10 MINUTES HOSPITAL NINI - 7 7 [facility] OUTPATIEN INC T EMERGENCY 16080 NINI 7 7 [facility] DEPARTMEN INC T VISIT LOW/MODER SEVERITY HOSPITAL NINI - 7 7 [facility]EN INC T HOSPITAL NINI - 7 7 [facility] OUTPATIEN INC T OFFICE 91569 [facility] 7 7 PHYSICIAN T VISIT S GROUP 10 MINUTES HOSPITAL NINI - 7 7 [facility] OUTPATIEN INC T EMERGENCY 36997 NINI 7 7 [facility] L[facility]MODER SEVERITY [facility]OSPITAL NINI - 6 6 [facility] OUTPATIEN INC T EMERGENCY 53617 NINI 6 6 [facility] V[facility]/M INOR PROB OFFICE 39576 FAMILY CHELA OUTPATIEN 6 6 CARE TAR T VISIT ASSOCIATE 15 S MINUTES OFFICE 60758 FAMILY CROWDY OUTPATIEN 6 6 CARE CRI T VISIT ASSOCIATE 15 S MINUTES OFFICE 83788 FAMILY CHELA OUTPATIEN 6 6 CARE TAR T VISIT ASSOCIATE 15 S MINUTES EMERGENCY 69553 TORSTEN NAYLOR 6 6 PHYSICIAN U DELMIS [facility] T VISIT MODERATE SEVERITY OFFICE 30840 FAMILY CROWDY OUTPATIEN 6 6 CARE CRI T VISIT ASSOCIATE 15 S MINUTES OFFICE 37344 [facility] OUT[facility] 6 6 [facility] HIL T VISIT [facility] DEPT 10 [place] MINUTES EMERGENCY 49815 NINI 6 6 [facility] DEPARTMEN INC T VISIT LOW/MODER SEVERITY EMERGENCY 89385 TORSTEN KESSLER 6 6 PHYSICIAN TYRA BOWIE T VISIT MODERATE SEVERITY HOSPITAL NINI - 6 6 [facility] OUTPATIEN INC T OFFICE 06424 [facility]ER[facility] TORRES MAR OUTPATIEN 6 6 PARTNERS T VISIT OF MARINA 25 CO MINUTES OFFICE 27132 FAMILY CROWDY OUTPATIEN 6 6 CARE CRI T VISIT ASSOCIATE 15 S MINUTES OFFICE 80090 FAMILY CROWDY OUTPATIEN 6 6 CARE CRI T VISIT ASSOCIATE 15 S MINUTES EMERGENCY 94110 TORSTEN ALICEA 6 6 PHYSICIAN KLEBER SIERRA T VISIT MODERATE SEVERITY OFFICE 84901 [facility] OUTPATIEN 6 6 PHYSICIAN RASHIDA T VISIT S GROUP 10 MINUTES OFFICE 56246 [facility] OUTPATIEN 6 6 PHYSICIAN RASHIDA T VISIT S GROUP 10 MINUTES EMERGENCY 01516 TORSTEN WHITE 6 6 [facility]MODER SEVERITY OFFICE 48442 FAMILY MULBERRY OUTPATIEN 6 6 CARE TYRON T VISIT ASSOCIATE 15 S MINUTES OFFICE 88890 [facility] TORRES MAR OUTPATIEN 6 6 PARTNERS T VISIT OF MARINA 25 CO MINUTES OFFICE 47307 FAMILY CROWDY OUTPATIEN 6 6 CARE CRI T VISIT ASSOCIATE 15 S MINUTES OFFICE 80335 FAMILY CROWDY OUTPATIEN 6 6 CARE CRI T VISIT ASSOCIATE 15 S MINUTES EMERGENCY 26500 TORSTEN RIVASH 6 6 PHYSICIAN ITA Lowe [facility] T VISIT HIGH/URGE NT SEVERITY OFFICE 51904 FAMILY CROWDY OUTPATIEN 6 6 CARE CRI T VISIT ASSOCIATE 15 S MINUTES OFFICE 10624 FAMILY CROWDY OUTPATIEN 6 6 CARE CRI T VISIT ASSOCIATE 15 S MINUTES OFFICE 85369 ALLERGY TORRES MAR OUTPATIEN 6 6 PARTNERS T NEW 45 OF MARINA MINUTES CO OFFICE 69803 FAMILY CROWDY OUTPATIEN 6 6 CARE CRI T VISIT ASSOCIATE 15 S MINUTES OFFICE 37962 PROGRESSI RHODA OUTPATIEN 6 6 VE LARRY T VISIT PODIATRY 15 MINUTES OFFICE 64369 FAMILY ISATU OUTPATIEN 6 6 CARE CAPO T VISIT ASSOCIATE 15 S MINUTES OFFICE 96029 FAMILY CROWDY OUTPATIEN 6 6 CARE CRI T VISIT ASSOCIATE 15 S MINUTES OFFICE 13147 FAMILY CROWDY OUTPATIEN 6 6 CARE CRI T VISIT ASSOCIATE 15 S MINUTES OFFICE 93971 PROGRESSI RHODA OUTPATIEN 6 6 VE LARRY T NEW 30 PODIATRY MINUTES [facility] NINI - 6 6 [facility] OUTPATIEN INC T EMERGENCY 02593 NINI 6 6 [facility]ISIT LOW/MODER SEVERITY EMERGENCY 00002 TORSTEN NAYLOR 6 6 PHYSICIAN U DELMIS [facility] S, [facility] T VISIT MODERATE SEVERITY OFFICE 82157 MICHELA ABERNATHY OUTPATIEN 6 6 GRE GRE T VISIT 15 MINUTES HOSPITAL NINI - 6 6 [facility] 69603 NINI 6 6 [facility] LOW/MODER SEVERITY OFFICE 57783 FAMILY CROWDY OUTPATIEN 5 5 CARE CRI T VISIT ASSOCIATE 15 S MINUTES OFFICE 49294 FAMILY ISATU OUTPATIEN 5 5 CARE CAPO T VISIT ASSOCIATE 15 S MINUTES HOSPITAL NINI - 5 5 [facility] OUTPATIEN INC T EMERGENCY 89929 [facility] 5 [facility] V[facility]/M INOR PROB EMERGENCY 41650 TORSTEN THOMPSON 5 5 PHYSICIAN FOR DEPARTMEN S, PLLC T VISIT MODERATE SEVERITY OFFICE [address] OUTPATIEN 5 5 [facility] T VISIT HOSPITAL 15 MINUTES HOSPITAL NINI - 5 5 [facility] OUTPATIEN INC T OFFICE 05817 FAMILY MULBERRY OUTPATIEN 5 5 CARE TYRON T VISIT ASSOCIATE 15 S MINUTES OFFICE 42377 FAMILY CROWDY OUTPATIEN 5 5 CARE CRI T VISIT ASSOCIATE 15 S MINUTES OFFICE 08026 NINI FRENCHYMAN OUTPATIEN 5 5 [facility] T VISIT [facility] 15 MINUTES OFFICE 24027 FAMILY CROWDY OUTPATIEN 5 5 CARE CRI T VISIT ASSOCIATE 15 S MINUTES [facility] NINI - 5 5 [facility] OUTPATIEN INC T OFFICE 97283 NINI FRENCHYMUSMAN OUTPATIEN 5 5 [facility] T VISIT HOSPITAL 15 MINUTES OFFICE 92190 [place] RUFINO ANT OUTPATIEN 5 5 MEDICAL T VISIT SERV 15 FOUNDATIO MINUTES N OFFICE 57623 [facility] GABRIELLE OUTPATIEN 4 4 PHYSICIAN TONG T VISIT S GROUP 15 MINUTES OFFICE 56918 [facility] NIXON OUTPATIEN 4 4 PHYSICIAN MADDIE T NEW 20 S GROUP MINUTES HOSPITAL NINI - 4 4 [facility] OUTPATIEN INC T OFFICE 55803 [place] RU[place] ANT OUTPATIEN 4 4 MEDICAL T NEW 45 SERV MINUTES FOUNDATIO N EMERGENCY 57804 [facility] AYANNA 4 4 BRENT IMT DEPARTMEN EMERGENCY T VISIT PHYS MODERATE SEVERITY OFFICE 26729 FAMILY OUTPATIEN 4 4 CARE T VISIT ASSOCIATE 15 S MINUTES [facility] NINI - 4 4 [facility] OUTPATIEN INC T OFFICE 06520 FAMILY BIBIANA OUTPATIEN 4 4 CARE R H T VISIT ASSOCIATE 15 S MINUTES HOSPITAL NINI - 4 4 [facility] OUTPATIEN INC T EMERGENCY 41586 ALFARIS ALFARIS 4 4 [facility] DEPARTMEN T VISIT HIGH/URGE NT SEVERITY EMERGENCY 41702 [facility] 4 4 BRENT DEPARTMEN EMERGENCY T VISIT PHYS HIGH/URGE NT SEVERITY HOSPITAL NINI - 4 4 [facility] OUTPATIEN INC T EMERGENCY 65426 INDIRA CARVAJAL 4 4 DEPARTMEN T VISIT MODERATE SEVERITY OFFICE 37789 FAMILY OUTPATIEN 4 4 CARE T VISIT ASSOCIATE 15 S MINUTES OFFICE 96659 MICHELA ABERNATHY OUTPATIEN 4 4 GRE GRE T NEW 45 MINUTES OFFICE 29632 ISATU Harris OUTPATIEN 4 4 G G T VISIT 15 MINUTES EMERGENCY 03106 INDIRA CARVAJAL 4 4 DEPARTMEN T VISIT MODERATE SEVERITY EMERGENCY 43300 HARDY DASH 4 4 BRO BRO DEPARTMEN T VISIT MODERATE SEVERITY HOSPITAL NINI - 4 4 [facility] OUTPATIEN INC T EMERGENCY 47992 NINI 4 4 [facility] DEPART[facility] INC T VISIT LIMITED/M INOR PROB EMERGENCY 98678 YARELI KASIA YARELI KASIA 4 4 DEPARTMEN T VISIT MODERATE SEVERITY HOSPITAL NINI - 4 4 [facility] OUTPATIEN INC T HOSPITAL NINI - 4 4 [facility] OUTPATIEN INC T OFFICE 02049 FAMILY OUTPATIEN 4 4 CARE T VISIT ASSOCIATE 15 S MINUTES OFFICE 93819 FAMILY OUTPATIEN 4 4 CARE T VISIT ASSOCIATE 15 S MINUTES OFFICE 95608 MULBERRY MULBERRY OUTPATIEN 4 4 TYRON TYRON T VISIT 15 MINUTES EMERGENCY 56687 NIXON NIXON 4 4 MADDIE MADDIE DEPARTMEN T VISIT HIGH/URGE NT SEVERITY OFFICE 14552 ISATU Harris OUTPATIEN 4 4 G G T VISIT 15 MINUTES OFFICE 21773 MULBERRY MULBERRY OUTPATIEN 3 3 TYRON TYRON T VISIT 10 MINUTES OFFICE 44714 NINI TERRAZAS OUTPATIEN 3 3 [facility] T [address] MINUTES OFFICE 54001 FAMILY OUTPATIEN 3 3 CARE T VISIT ASSOCIATE 15 S MINUTES EMERGENCY 82758 NIXON NIXON 3 3 MADDIE MADDIE DEPARTMEN T VISIT MODERATE SEVERITY OFFICE 51548 FAMILY OUTPATIEN 3 3 CARE T VISIT ASSOCIATE 15 S MINUTES OFFICE 62766 FAMILY OUTPATIEN 3 3 CARE T VISIT ASSOCIATE 15 S MINUTES OFFICE 84959 FAMILY OUTPATIEN 3 3 CARE T VISIT ASSOCIATE 15 S MINUTES OFFICE 52129 ISATU Harris OUTPATIEN 3 3 G G T VISIT 15 MINUTES OFFICE 71568 MULBERRY MULBERRY OUTPATIEN 3 3 TYRON TYRON T VISIT 15 MINUTES OFFICE 82866 FAMILY OUTPATIEN 3 3 CARE T VISIT ASSOCIATE 15 S MINUTES OFFICE 74226 FAMILY OUTPATIEN 3 3 CARE T VISIT ASSOCIATE 15 S MINUTES OFFICE 13457 MULBERRY MULBERRY OUTPATIEN 3 3 TYRON TYRON T VISIT 15 MINUTES OFFICE 81149 FAMILY OUTPATIEN 3 3 CARE T VISIT ASSOCIATE 15 S MINUTES OFFICE 60856 FAMILY OUTPATIEN 3 3 CARE T VISIT ASSOCIATE 15 S MINUTES EMERGENCY 72669 NIXON NIXON 3 3 MADDIE MADDIE DEPARTMEN T VISIT MODERATE SEVERITY HOSPITAL NINI - 3 3 [facility] INC T EMERGENCY 31478 NINI 3 3 [facility] DEPART[facility] INC T VISIT LOW/MODER SEVERITY OFFICE 39771 FAMILY OUTPATIEN 3 3 CARE T VISIT ASSOCIATE 15 S MINUTES HOSPITAL NINI - 3 3 [facility] OUTPATIEN INC T EMERGENCY 66496 NINI 3 3 [facility] DEPARTMEN INC T VISIT LOW/MODER SEVERITY EMERGENCY 84238 [facility] ALICEA 3 [facility] DEPARTMEN T VISIT MODERATE SEVERITY OFFICE 40568 MULBERRY MULBERRY OUTPATIEN 3 3 TYRON TYRON T VISIT 15 MINUTES OFFICE 93840 MULBERRY MULBERRY OUTPATIEN 3 3 TYRON TYRON T VISIT 15 MINUTES OFFICE 26060 BIBIANA BIBIANA OUTPATIEN 3 3 R H R H T VISIT 15 MINUTES HOSPITAL NINI - 3 3 [facility] OUT[facility] INC T OFFICE 18964 FAMILY OUTPATIEN 3 3 CARE T VISIT ASSOCIATE 15 S MINUTES OFFICE 53479 FAMILY OUTPATIEN 2 2 CARE T VISIT ASSOCIATE 15 S MINUTES OFFICE 43951 FAMILY OUTPATIEN 2 2 CARE T VISIT ASSOCIATE 15 S MINUTES EMERGENCY 34601 NIXON ALICEA 2 2 [facility] DEPART[facility] T VISIT MODERATE SEVERITY [facility] NINI - 2 2 [facility] T EMERGENCY 53428 NINI 2 2 [facility] DEPARTMEN INC T VISIT LIMITED/M INOR PROB OFFICE 10224 BIBIANA BIBIANA OUTPATIEN 2 2 R H R H T VISIT 15 MINUTES OFFICE 82611 ISATU Harris OUTPATIEN 2 2 G G T VISIT 15 MINUTES HOSPITAL NINI - 2 2 [facility] T EMERGENCY 18324 [facility]ON [facility] 2 2 [facility] DEPART[facility] T VISIT MODERATE SEVERITY EMERGENCY 49205 NINI 2 2 [facility] INC T VISIT LOW/MODER SEVERITY OFFICE 42649 FAMILY OUTPATIEN 2 2 CARE T VISIT ASSOCIATE 15 S MINUTES OFFICE 76744 BIBIANA BIBIANA OUTPATIEN 2 2 R H R H T VISIT 15 MINUTES EMERGENCY 87548 N[facility]ON ALICEA 2 2 [facility] DEPARTMEN T VISIT MODERATE SEVERITY EMERGENCY 31526 NINI 2 2 [facility] DEPARTMEN INC T VISIT LIMITED/M INOR PROB HOSPITAL NINI - 2 2 [facility] OUTPATIEN INC T OFFICE 30436 FAMILY OUTPATIEN 2 2 CARE T VISIT ASSOCIATE 15 S MINUTES HOSPITAL NINI - 2 2 [facility] OUTPATIEN INC T EMERGENCY 84261 NINI 2 2 [facility] DEPARTMEN INC T VISIT LOW/MODER SEVERITY HOSPITAL NINI - 2 2 [facility] OUTPATIEN INC T EMERGENCY 82064 MICHELA CARVAJAL 2 2 EMERGENCY DEPARTMEN SERVICES T VISIT HIGH/URGE NT SEVERITY EMERGENCY 04510 MICHELA PAT 2 2 EMERGENCY CLAY DEPARTMEN SERVICES T VISIT MODERATE SEVERITY EMERGENCY 93970 NINI 2 2 [facility] DEPARTMEN INC T VISIT MODERATE SEVERITY EMERGENCY 12024 NIXON ALICEA 2 2 [facility] DEPARTMEN T VISIT HIGH/URGE NT SEVERITY HOSPITAL NINI - 2 2 [facility] OUTPATIEN INC T OFFICE 16509 FAMILY OUTPATIEN 2 2 CARE T VISIT ASSOCIATE 15 S MINUTES OFFICE 50161 FAMILY OUTPATIEN 2 2 CARE T VISIT ASSOCIATE 15 S MINUTES EMERGENCY 83185 MICHELA ALICEA 2 2 EMERGENCY [facility] DEPARTMEN SERVICES T VISIT MODERATE SEVERITY HOSPITAL NINI - 2 2 [facility] OUT[facility] INC T EMERGENCY 24317 NINI 2 2 [facility]MODER SEVERITY EMERGENCY 86960 NINI 2 2 [facility] MOD[facility]ATE SEVERITY HOSP[facility] NINI - 2 2 [facility] OUTPATIEN INC T HOSPITAL NINI - 2 2 [facility] OUTPATIEN INC T OFFICE 40330 STRAWZELL STRAWZELL OUTPATIEN 2 2 CRI CRI T VISIT 15 MINUTES OFFICE 30618 STRAWZELL STRAWZELL OUTPATIEN 2 2 CRI CRI T VISIT 15 MINUTES HOSPITAL NINI - 2 2 [facility] OUTPATIEN INC T OFFICE 17627 STRAWZELL STRAWZELL OUTPATIEN 2 2 CRI CRI T VISIT 15 MINUTES OFFICE 45902 MULBERRY MULBERRY OUTPATIEN 2 2 TYRON TYRON T VISIT 15 MINUTES EMERGENCY 34182 [facility] MOD[facility]ATE SEVERITY EMERGENCY 64705 NINI 2 2 [facility] DEPARTMEN INC T VISIT LOW/MODER SEVERITY HOSPITAL NINI - 2 2 [facility] OUTPATIEN INC T OFFICE 87302 FAMILY BIBIANA OUTPATIEN 1 1 CARE R H T VISIT ASSOCIATE 15 S MINUTES OFFICE 99829 STRAWZELL STRAWZELL OUTPATIEN 1 1 CRI CRI T VISIT 15 MINUTES HOSPITAL NINI - 1 1 [facility] OUTPATIEN INC T OFFICE 00761 STRAWZELL STRAWZELL OUTPATIEN 1 1 CRI CRI T VISIT 15 MINUTES EMERGENCY 44149 JANAE JOSE F CARDOSO JOSE F 1 1 DEPARTMEN T VISIT HIGH/URGE NT SEVERITY EMERGENCY 08023 NINI 1 1 [facility] DEPARTMEN INC T VISIT LOW/MODER SEVERITY HOSPITAL NINI - 1 1 [facility] OUTPATIEN INC T OFFICE 08845 FAMILY [place]NA OUTPATIEN 1 1 CARE R H T VISIT ASSOCIATE 15 S MINUTES OFFICE 10724 FAMILY [place] OUTPATIEN 1 1 CARE R H T VISIT ASSOCIATE 25 S MINUTES HOSPITAL NINI - 1 1 [facility] INPATIENT [facility] EMERGENCY 35805 IN[facility] T VISIT LOW/MODER SEVERITY EMERGENCY 32615 MICHELA ALICEA 1 1 EMERGENCY [facility] DEPARTMEN SERVICES T VISIT HIGH/URGE NT SEVERITY HOSPITAL NINI - 1 1 [facility] OUTPATIEN INC T EMERGENCY 18227 MICHELA POWER 1 1 EMERGENCY III CLAY DEPARTMEN SERVICES T VISIT MODERATE SEVERITY HOSPITAL NINI - 1 1 [facility] OUTPATIEN INC T EMERGENCY 13429 NINI 1 1 [facility] T [facility]ISIT LIMITED[facility]M INOR PROB HOSPITAL NINI - 1 1 [facility] 03377 MICHELA CARDOSO JOSE F 1 1 EMERGENCY DEPARTMEN SERVICES T VISIT MODERATE SEVERITY EMERGENCY 58205 NINI 1 1 [facility] LOW/MODER SEVERITY OFFICE 43751 FAMILY MULBERRY OUTPATIEN 1 1 CARE TYRON T VISIT ASSOCIATE 15 S MINUTES EMERGENCY 92557 MICHELA TINAJERO 1 1 EMERGENCY DEPARTMEN SERVICES T VISIT HIGH/URGE NT SEVERITY EMERGENCY 72108 NINI 1 1 [facility] INC T VISIT LOW/MODER SEVERITY HOSPITAL NINI - 1 1 [facility] OUTPATI[facility] INC T EMERGENCY 69730 MICHELA ALICEA 1 1 EMERGENCY [place] DEPARTMEN SERVICES T VISIT HIGH/URGE NT SEVERITY EMERGENCY 99886 NINI 1 1 [facility] DEPARTMEN INC T VISIT LOW/MODER SEVERITY HOSPITAL NINI - 1 1 [facility] OUTPATIEN INC T EMERGENCY 87630 NINI 0 0 [facility] DEPARTMEN INC T VISIT LOW/MODER SEVERITY HOSPITAL NINI - 0 0 [facility] OUTPAT[facility] INC T EMERGENCY 38484 MICHELA POWER 0 0 EMERGENCY III [facility] DEPARTMEN SERVICES T VISIT MODERATE SEVERITY EMERGENCY 66328 NINI 0 0 [facility] DEPARTMEN INC T VISIT LOW/MODER SEVERITY HOSPITAL NINI - 0 0 [facility] OUTPATIEN INC T OFFICE 05434 FAMILY [place]NA OUTPATIEN 0 0 CARE R H T VISIT ASSOCIATE 15 S MINUTES OFFICE 46704 FAMILY ISATU J OUTPATIEN 0 0 CARE T VISIT ASSOCIATE 15 S MINUTES EMERGENCY 69087 MICHELA TINAJERO 0 0 EMERGENCY DEPARTMEN SERVICES T VISIT MODERATE SEVERITY HOSPITAL NINI - 0 0 [facility] OUTPATIEN INC T EMERGENCY 65571 NINI 0 0 [facility] DEPARTMEN INC T VISIT LIMITED/M INOR PROB EMERGENCY 71671 NINI 0 0 [facility] DEPARTMEN INC T VISIT MODERATE SEVERITY HOSPITAL NINI - 0 0 [facility] OUTPATIEN INC T EMERGENCY 89291 NINI 0 0 [facility] DEPARTMEN INC T VISIT LOW/MODER SEVERITY EMERGENCY 07619 MICHELA NIXON DEPT 0 0 EMERGENCY [place] VISIT SERVICES HIGH SEVERITY& THREAT [facility] NINI - 0 0 [facility] OUTPATIEN INC T EMERGENCY 47467 MICHELA MURILLO 0 0 EMERGENCY [facility] VISIT MODERATE SEVERITY EMERGENCY 01468 NINI 0 0 [facility] DEPARTMEN INC T VISIT LOW/MODER SEVERITY HOSPITAL NINI - 0 0 [facility] OUTPATIEN INC T OFFICE 16534 Steven MEJÍA OUTPATIEN 0 0 CARE G T VISIT ASSOCIATE 15 S MINUTES HOSPITAL NINI - 0 0 [facility] OUTPATIEN INC T OFFICE 74798 [facility] 9 9 [facility] A T VISIT 10 MINUTES EMERGENCY 32335 MICHELA ALICEA, 9 9 EMERGENCY [facility] SERVICES T VISIT MODERATE ASSOCIATE SEVERITY S HOSPITAL NINI - 9 9 [facility] OUTPATIEN INC T EMERGENCY 30223 NINI 9 9 [facility] DEPARTMEN INC T VISIT LOW/MODER SEVERITY EMERGENCY 82364 MICHELA ALICEA, 9 9 EMERGENCY [facility] SERVICES T VISIT MODERATE ASSOCIATE SEVERITY S EMERGENCY 85173 NINI 9 9 [facility] DEPARTMEN INC T VISIT LIMITED/M INOR PROB HOSPITAL NINI - 9 9 [facility] OUTPATI[facility] INC T EMERGENCY 15238 [facility] 9 9 [facility] T VISIT PHYS INC LOW/MODER SEVERITY EMERGENCY 62048 LALITHA ELLIOTT, 8 8 [facility] T VISIT ON MODERATE SEVERITY EMERGENCY 47888 NINI 8 8 [facility] DEPARTMEN INC T VISIT LOW/MODER SEVERITY HOSPITAL NINI - 8 8 [facility] OUTPATIEN INC T HOSPITAL NINI - 8 8 [facility] OUTPAT[facility]EN INC T EMERGENCY 56096 NINI 8 8 [facility] DEPARTMEN INC T VISIT MODERATE SEVERITY OFFICE 67034 AMBROSE ARAUJO 8 8 CARE ANDREW Parker T VISIT ASSOCIATE 15 S MINUTES OFFICE 05335 AMBROSE YATES 8 8 CARE Hope COSTELLO T VISIT ASSOCIATE 15 S MINUTES
--- OUTSIDE RECORDS SUMMARY | 2017-05-18 15:24 | External Medical Summary Rpt | CCD ---
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 HOLDING BLOOD 54610 ISATU Harris COUNT 4 G G COMPLETE AUTO&[place] [address] COMBINED COMBINED AMYLASE 4 PHYSICIAN PHYSICIAN S LA S LA COMPRE 27774 TONY JIMENEZ AUDIOMETR 4 ALENA CARVAJAL Y THRESHOLD EVAL SP RECOGNIJ TYMPANOME 95476 TONY TONY TRY 4 ALENA ALENA INJECTION J2405 NINI TERRAZAS 4 [facility] ONDANSETR INC INC ON HCL PER 1 MG TYMPANOST 45396 MONGIARDO MONGIARDO ALEX 4 FRA FRA GENERAL ANESTHESI A ANES 69445 [facility] XTRNL MID 4 ANESTH & INNER OF THE EAR W/BX BLUE TYMPANOTO MY ECG 37917 NINI TERRAZAS ROUTINE 4 [facility] ECG INC INC W/LEAST 12 LDS TRCG ONLY W/O I&R ECG 56427 SINDHU MANLEY ROUTINE 4 KASIA KASIA ECG W/LEAST 12 LDS I&R ONLY RADIOLOGI 80119 ERIC DUNNECHER C EXAM 4 SARANYA SRAANYA CHEST 2 VIEWS FRONTAL&L ATERAL BASIC 12841 NINI TERRAZAS METABOLIC 4 [facility] PANEL INC INC CALCIUM TOTAL BLOOD 87766 NINI TERRAZAS COUNT 4 [facility] COMPLETE INC INC AUTO&AUTO DIFRNTL WBC DETERMINA 50334 MICHELA ROONEY 4 GRE GRE REFRACTIV E STATE OPHTH 57038 [facility] 4 GRE GRE XM&EVAL COMPRE NEW PT 1/> VST COLLECTIO 75227 MULBERRY MULBERRY N 4 TYRON TYRON CAPILLARY BLOOD SPECIMEN BLOOD 35208 MULBERRY MULBERRY COUNT 4 TYRON TYRON COMPLETE AUTO&AUTO DIFRNTL WBC BLOOD 10879 ISATU Harris COUNT 4 G G COMPLETE AUTO&AUTO DIFRNTL WBC COLLECTIO 75349 ISATU Harris N 4 G G CAPILLARY BLOOD SPECIMEN IAADIADOO 24079 ISATU Harris 4 G G INFLUENZA SIMPLE 69156 NIXON NIXON REPAIR 3 MADDIE MADDIE SCALP/NEC K/AX/SHERLY T/TRUNK 2.5CM/< SUSCEPTIB 88090 COMBINED COMBINED ILITY 3 PHYSICIAN PHYSICIAN STUDY S LA S LA ANTIMICRO BIAL DISK METHOD INCISION 53754 FAMILY FAMILY & 3 CARE CARE DRAINAGE ASSOCIATE ASSOCIATE ABSCESS S S COMPLICAT ED/MULTIP LE CUL BACT 54860 COMBINED COMBINED XCPT 3 PHYSICIAN PHYSICIAN URINE S LA S LA BLOOD/STO OL AEROBIC ISOL CUL BACT 42817 COMBINED COMBINED XCPT 3 PHYSICIAN PHYSICIAN URINE S LA S LA BLOOD/STO OL AEROBIC ISOL CUL BACT 44347 COMBINED COMBINED XCPT 3 PHYSICIAN PHYSICIAN URINE S LA S LA BLOOD/STO OL AEROBIC ISOL SUSCEPTIB 52216 COMBINED COMBINED ILITY 3 PHYSICIAN PHYSICIAN STUDY S LA S LA ANTIMICRO BIAL DISK METHOD REMOVAL 21740 FAMILY FAMILY IMPACTED 3 CARE CARE CERUMEN ASSOCIATE ASSOCIATE INSTRUMEN S S TATION UNILAT URNLS DIP 95954 MULBERRY MULBERRY 3 TYRON TYRON STICK/TAB LET RGNT NON-AUTO W/O MICRSCP CUL BACT 89441 COMBINED COMBINED XCPT 3 PHYSICIAN PHYSICIAN URINE S LA S LA BLOOD/STO OL AEROBIC ISOL RADIOLOGI 49611 ERIC ERIC C EXAM 3 SARANYA SARANYA CHEST 2 VIEWS FRONTAL&L ATERAL BLOOD 94236 BIBIANA BIBIANA COUNT 3 R H R H COMPLETE AUTO&AUTO DIFRNTL WBC CUL BACT 42365 COMBINED COMBINED XCPT 2 PHYSICIAN PHYSICIAN URINE S LA S LA BLOOD/STO OL AEROBIC ISOL SUSCEPTIB 24467 COMBINED COMBINED ILITY 2 PHYSICIAN PHYSICIAN STUDY S LA S LA ANTIMICRO BIAL DISK METHOD BLOOD 14785 BIBIANA BIBIANA COUNT 2 R H R H COMPLETE AUTO&AUTO DIFRNTL WBC BLOOD 99853 ISATU LUNSFORD J COUNT 2 G G COMPLETE AUTO&AUTO DIFRNTL WBC CUL BACT 88026 NINI TERRAZAS AEROBIC 2 [facility] ADDL INC INC METHS DEFINITIV E EA ISOL SUSCEPTIB 70325 NINI TERRAZAS LTY STDY 2 [facility] ANTIMICRB INC INC IAL MICRO/AGA R DILUTJ CUL BACT 71187 NINI TERRAZAS XCPT 2 [facility] URINE INC INC BLOOD/STO OL AEROBIC ISOL CUL BACT 57001 NINI TERRAZAS XCPT 2 [facility] URINE INC INC BLOOD/STO OL AEROBIC ISOL SUSCEPTIB 01512 NINI TERRAZAS LTY STDY 2 [facility] ANTIMICRB INC INC IAL MICRO/AGA R DILUTJ CUL BACT 48855 NINI TERRAZAS AEROBIC 2 [facility] ADDL INC INC METHS DEFINITIV E EA ISOL RADIOLOGI 53899 NINI TERRAZAS C EXAM 2 [facility] CHEST 2 INC INC VIEWS FRONTAL&L ATERAL RADEX 01435 NINI TERRAZAS RIBS 2 [facility] UNILATERA INC INC L 2 VIEWS RADEX 36139 [place] [facility] RIBS UNI 2 MEDICAL SARANYA W/POSTERO IMAGING ANT CH ASS MINIMUM 3 VIEWS REMOVAL 64173 BIBIANA BIBIANA IMPACTED 2 R H R H CERUMEN INSTRUMEN TATION UNILAT URNLS DIP 52595 BIBIANA BIBIANA 2 R H R H STICK/TAB LET RGNT NON-AUTO W/O MICRSCP URNLS DIP 66332 NINI TERRAZAS 2 [facility] STICK/TAB INC INC LET REAGENT AUTO MICROSCOP Y URNLS DIP 99552 NINI TERRAZAS 2 [facility] STICK/TAB INC INC LET REAGENT AUTO MICROSCOP Y COMPREHEN 85965 NINI TERRAZAS SIVE 2 [facility] METABOLIC INC INC PANEL RADIOLOGI 31133 NINI TERRAZAS C EXAM 2 [facility] CHEST 2 INC INC VIEWS FRONTAL&L ATERAL BLOOD 21453 NINI TERRAZAS COUNT 2 [facility] COMPLETE INC INC AUTO&AUTO DIFRNTL WBC RADEX 94239 NINI TERRAZAS HAND 2 [facility] MINIMUM 3 INC INC VIEWS IM ADM 86619 NINI TERRAZAS PRQ ID 2 [facility] SUBQ/IM INC INC NJXS 1 VACCINE TDAP 89650 NINI TERRAZAS VACCINE 7 2 [facility] YRS/> IM INC INC COMPREHEN 90285 COMBINED COMBINED SIVE 2 PHYSICIAN PHYSICIAN METABOLIC S LA S LA PANEL ANTIBODY 85976 COMBINED COMBINED HELICOBAC [address] S LA S LA PYLORI 81319 [place] [facility] ABDOMINAL 2 MEDICAL SARANYA REAL IMAGING [place] W/[place] [address] COMBINED COMBINED AMYLASE 2 [place]YS[place] [address] LAB EDITA LAB EDITA LIPASE 2 AMERIC [employer] HOLDINGS HOLDING BLOOD 66720 STRAWZELL STRAWZELL COUNT 2 CRI CRI COMPLETE AUTO&AUTO DIFRNTL WBC BLOOD 73669 STRAWZELL STRAWZELL COUNT 2 CRI CRI COMPLETE AUTO&AUTO DIFRNTL WBC RADEX 83528 [place] [facility] ABDOMEN 2 MEDICAL SARANYA COMPL IMAGING W/DCBTS&/ ASS ERC VIEWS RADIOLOGI 68091 [place] [facility] C EXAM 2 MEDICAL SARANYA CHEST 2 IMAGING VIEWS ASS FRONTAL&L ATERAL BLOOD 39768 STRAWZELL STRAWZELL COUNT 2 CRI CRI COMPLETE AUTO&AUTO DIFRNTL WBC BLOOD 30625 STRAWZELL STRAWZELL COUNT 1 CRI CRI COMPLETE AUTO&AUTO DIFRNTL WBC RADIOLOGI 86137 [place] [facility] C EXAM 1 MEDICAL SARANYA CHEST 2 IMAGING VIEWS ASS FRONTAL&L ATERAL BLOOD 08481 STRAWZELL STRAWZELL COUNT 1 CRI CRI COMPLETE AUTO&AUTO DIFRNTL WBC COMPREHEN 06887 COMBINED COMBINED SIVE 1 PHYSICIAN PHYSICIAN METABOLIC S LA S LA PANEL IAADI 90349 NINI TERRAZAS INFLUENZA 1 [facility] B VIRUS INC INC IAADI 55342 NINI TERRAZAS INFFLUENZ 1 [facility] A A VIRUS INC INC OBSERVATI 53364 FAMILY MCCARTY ON CARE 1 CARE R H DISCHARGE ASSOCIATE S [facility] RAD[facility] 92272 [facility] REYES EXAM 1 MEDICAL SARANYA CHEST 2 IMAGING VIEWS ASS FRONTAL&L ATERAL INITIAL 60289 FAMILY BIBIANA OBSERVATI 1 CARE R H ON ASSOCIATE CARE/DAY S 50 MINUTES INCISION 64817 MICHELA ALICEA & 1 EMERGENCY MADDIE DRAINAGE SERVICES ABSCESS COMPLICAT ED/MULTIP LE SUSCEPTIB 71558 NINI TERRAZAS LTY STDY 1 [facility] ANTIMICRB INC INC IAL MICRO/AGA R DILUTJ CUL BACT 06822 NINI TERRAZAS XCPT 1 [facility] URINE INC INC BLOOD/STO OL AEROBIC ISOL OTH 8604 NINI TERRAZAS INCISION 1 [facility] W/DRAINAG INC INC E SKIN&SUBC UTANEOUS TISSUE CUL BACT 45767 NINI TERRAZAS AEROBIC 1 [facility] ADDL INC INC METHS DEFINITIV E EA ISOL IADNA 38819 MEDICAL MEDICAL CHLAMYDIA 1 [facility] TRACHOMAT IS AMPLIFIED PROBE TQ IADNA NOS 27926 MEDICAL MEDICAL 1 DIAGNOSTI DIAGNOSTI AMPLIFIED [facility] PROBE TQ EACH ORGANISM IADNA 33565 MEDICAL MEDICAL HERPES 1 [facility] SOMPLX [facility] VIRUS AMPLIFIED PROBE TQ IADNA 13537 MEDICAL MEDICAL NEISSERIA 1 [facility] GONORRHOE AE AMPLIFIED PROBE TQ IAADI 73393 NINI TERRAZAS INFLUENZA 1 [facility] B VIRUS INC INC IAADI 20770 NINI TERRAZAS INFFLUENZ 1 [facility] A A VIRUS INC INC IAADI 57866 NINI TERRAZAS INFFLUENZ 0 [facility] A A VIRUS INC INC IAADI 89352 NINI TERRAZAS INFLUENZA 0 [facility] [place] [address] NINI TERRAZAS STREPTOCO 0 [facility] CCUS INC INC GROUP A 3D 04039 NINI TERRAZAS RENDERING 0 [facility] W/INTERP INC INC & POSTPROCE SS SUPERVISI ON SIMPLE 99618 MICHELA NIXON REPAIR 0 EMERGENCY MADDIE F/E/E/N/L SERVICES /M 2.5CM/< [place] [address] [place] [facility] MAXILLOFA 0 MEDICAL SARANYA CIAL W/[place] [address] [place] [facility] CERVICAL 0 MEDICAL SARANYA SPINE W/[place] [address] [place] [facility] HEAD/BRAI 0 MEDICAL SARANYA N W/O IMAGING CONTRAST ASS MATERIAL 3D 70503 NINI TERRAZAS RENDERING 0 [facility] INC INC W/INTERP& POSTPROC DIFF WORK STATION LINEAR 0881 NINI TERRAZAS REPAIR OF 0 [facility] INC INC LACERATIO N OF EYELID OR EYEBROW RADEX 11048 [place] [facility], SPINE 0 MEDICAL MARK THORACIC IMAGING 3 VIEWS ASSOCIATE S RADEX 32855 [place] [facility], SPINE 0 MEDICAL MARK LUMBOSACR IMAGING AL ASSOCIATE MINIMUM 4 S VIEWS [facility] 32020 [facility] STEPHEN, REPAIR 9 BRENT KATHIE B SCALP/NEC EMERGENCY K/AX/SHERLY PHYS INC T/TRUNK 2.5CM/< Encounters Encounter Start End Date Code Location Performer Type Date OFFICE 51005 SANIYA PARSONSPATIEN 7 7 GROUND T NEW 45 FAMILY MINUTES [facility] NINI - 7 7 [facility] OUTPATIEN INC T OFFICE 52453 [facility] LINO BOGGS 7 7 PHYSICIAN T VISIT S GROUP 10 MINUTES [facility] NINI - 7 7 [facility] OUTPATIEN INC T OFFICE 96610 [facility]IAN T VISIT S GROUP 10 MINUTES HOSPITAL NINI - 7 7 [facility] OUTPATIEN INC T EMERGENCY 71361 NINI 7 7 [facility] DEPARTMEN INC T VISIT LOW/MODER SEVERITY HOSPITAL NINI - 7 7 [facility] OUTPATIEN INC T HOSPITAL NINI - 7 7 [facility] OUTPATIEN INC T OFFICE 54538 [facility] HUYNH [facility] 7 7 PHYSICIAN T VISIT S GROUP 10 MINUTES HOSPITAL NINI - 7 7 [facility] OUTPATIEN INC T EMERGENCY 26860 NINI 7 7 [facility] LOW/MODER SEVERITY [facility]OSPITAL NINI - 6 6 [facility] OUTPATIEN INC T EMERGENCY 21660 NINI 6 6 [facility]ISIT LIMITED/M INOR PROB OFFICE 95914 FAMILY CHELA OUTPATIEN 6 6 CARE TAR T VISIT ASSOCIATE 15 S MINUTES OFFICE 59004 FAMILY CROWDY OUTPATIEN 6 6 CARE CRI T VISIT ASSOCIATE 15 S MINUTES OFFICE 32735 FAMILY CHELA OUTPATIEN 6 6 CARE TAR T VISIT ASSOCIATE 15 S MINUTES EMERGENCY 99886 TORSTEN NAYLOR 6 6 [facility] VISIT MODERATE SEVERITY OFFICE 41983 FAMILY CROWDY OUTPATIEN 6 6 CARE CRI T VISIT ASSOCIATE 15 S MINUTES OFFICE 70517 [facility] OUTPATIEN 6 6 DISTRICT HIL T VISIT [facility] DEPT 10 [place] MINUTES EMERGENCY 17988 NINI 6 6 [facility] DEPARTMEN INC T VISIT LOW/MODER SEVERITY EMERGENCY 15484 TORSTEN KESSLER 6 6 PHYSICIAN TYRA BOWIE T VISIT MODERATE SEVERITY HOSPITAL NINI - 6 6 [facility] OUTPATIEN INC T OFFICE 42208 [facility] TORRES MAR OUTPATIEN 6 6 PARTNERS T VISIT OF MAR[place] 25 CO MINUTES OFFICE 91224 FAMILY CROWDY OUTPATIEN 6 6 CARE CRI T VISIT ASSOCIATE 15 S MINUTES OFFICE 32975 FAMILY CROWDY OUTPATIEN 6 6 CARE CRI T VISIT ASSOCIATE 15 S MINUTES EMERGENCY 03121 TORSTEN ALICEA 6 6 PHYSICIAN KLEBER SIERRA T VISIT MODERATE SEVERITY OFFICE 08916 [facility] HUYNH OUTPATIEN 6 6 PHYSICIAN RASHIDA T VISIT S GROUP 10 MINUTES OFFICE 87065 [facility] HUYNH OUTPATIEN 6 6 PHYSICIAN RASHIDA T VISIT S GROUP 10 MINUTES EMERGENCY 49301 TORSTEN WHITE 6 6 [facility]/MODER SEVERITY OFFICE 78517 FAMILY MULBERRY OUTPATIEN 6 6 CARE TYRON T VISIT ASSOCIATE 15 S MINUTES OFFICE 15685 [facility] TORRES MAR OUTPATIEN 6 6 PARTNERS T VISIT OF MARINA 25 CO MINUTES OFFICE 93223 FAMILY CROWDY OUTPATIEN 6 6 CARE CRI T VISIT ASSOCIATE 15 S MINUTES OFFICE 49965 FAMILY CROWDY OUTPATIEN 6 6 CARE CRI T VISIT ASSOCIATE 15 S MINUTES EMERGENCY 16408 TORSTEN RIVASH 6 6 PHYSICIAN ITA Lowe [facility] T VISIT HIGH/URGE NT SEVERITY OFFICE 43037 FAMILY CROWDY OUTPATIEN 6 6 CARE CRI T VISIT ASSOCIATE 15 S MINUTES OFFICE 16672 FAMILY CROWDY OUTPATIEN 6 6 CARE CRI T VISIT ASSOCIATE 15 S MINUTES OFFICE 92988 ALLERGY TORRES MAR OUTPATIEN 6 6 PARTNERS T NEW 45 OF MARINA MINUTES CO OFFICE 77637 FAMILY CROWDY OUTPATIEN 6 6 CARE CRI T VISIT ASSOCIATE 15 S MINUTES OFFICE 22439 PROGRESSI RHODA OUTPATIEN 6 6 VE LARRY T VISIT PODIATRY 15 MINUTES OFFICE 99287 FAMILY ISATU OUTPATIEN 6 6 CARE CAPO T VISIT ASSOCIATE 15 S MINUTES OFFICE 62798 FAMILY CROWDY OUTPATIEN 6 6 CARE CRI T VISIT ASSOCIATE 15 S MINUTES OFFICE 26121 FAMILY CROWDY OUTPATIEN 6 6 CARE CRI T VISIT ASSOCIATE 15 S MINUTES OFFICE 15314 PROGRESSI RHODA OUTPATIEN 6 6 VE LARRY T NEW 30 PODIATRY MINUTES [facility] NINI - 6 6 [facility] OUTPATIEN INC T EMERGENCY 82356 NINI 6 6 [facility] VISIT LOW/MODER SEVERITY EMERGENCY 68412 TORSTEN NAYLOR 6 6 PHYSICIAN U [facility] S, [facility] T VISIT MODERATE SEVERITY OFFICE 26050 MICHELA ABERNATHY OUTPATIEN 6 6 GRE GRE T VISIT 15 MINUTES HOSPITAL NINI - 6 6 [facility] 26429 NINI 6 6 [facility] VISIT LOW/MODER SEVERITY OFFICE 70077 FAMILY CROWDY OUTPATIEN 5 5 CARE CRI T VISIT ASSOCIATE 15 S MINUTES OFFICE 70371 FAMILY ISATU OUTPATIEN 5 5 CARE CAPO T VISIT ASSOCIATE 15 S MINUTES HOSPITAL NINI - 5 5 [facility] OUTPATIEN INC T EMERGENCY 01041 [facility] 5 [facility] V[facility]/M INOR PROB EMERGENCY 88262 TORSTEN THOMPSON 5 5 PHYSICIAN FOR DEPARTMEN S, PLLC T VISIT MODERATE SEVERITY OFFICE [address] OUTPATIEN 5 5 [facility] T VISIT HOSPITAL 15 MINUTES HOSPITAL NINI - 5 5 [facility] OUTPATIEN INC T OFFICE 98578 FAMILY MULBERRY OUTPATIEN 5 5 CARE TYRON T VISIT ASSOCIATE 15 S MINUTES OFFICE 89565 FAMILY CROWDY OUTPATIEN 5 5 CARE CRI T VISIT ASSOCIATE 15 S MINUTES OFFICE 39205 NINI FRENCHYMAN OUTPATIEN 5 5 [facility] T VISIT [facility] 15 MINUTES OFFICE 26363 FAMILY CROWDY OUTPATIEN 5 5 CARE CRI T VISIT ASSOCIATE 15 S MINUTES [facility] NINI - 5 5 [facility] OUTPATIEN INC T OFFICE 54096 NINI FRENCHYMUSMAN OUTPATIEN 5 5 [facility] T VISIT HOSPITAL 15 MINUTES OFFICE 88079 [place] RUFINO ANT OUTPATIEN 5 5 MEDICAL T VISIT SERV 15 FOUNDATIO MINUTES N OFFICE 75062 [facility] GABRIELLE OUTPATIEN 4 4 PHYSICIAN TONG T VISIT S GROUP 15 MINUTES OFFICE 07994 [facility] NIXON OUTPATIEN 4 4 PHYSICIAN MADDIE T NEW 20 S GROUP MINUTES HOSPITAL NINI - 4 4 [facility] OUTPATIEN INC T OFFICE 56246 [place] RUFINO ANT OUTPATIEN 4 4 MEDICAL T NEW 45 SERV MINUTES FOUNDATIO N EMERGENCY 50241 [facility] AYANNA 4 4 BRENT IMT DEPARTMEN EMERGENCY T VISIT PHYS MODERATE SEVERITY OFFICE 27742 FAMILY OUTPATIEN 4 4 CARE T VISIT ASSOCIATE 15 S MINUTES [facility] NINI - 4 4 [facility] OUTPATIEN INC T OFFICE 37196 FAMILY BIBIANA OUTPATIEN 4 4 CARE R H T VISIT ASSOCIATE 15 S MINUTES HOSPITAL NINI - 4 4 [facility] OUTPATIEN INC T EMERGENCY 32740 ALFARIS ALFARIS 4 4 [facility] DEPARTMEN T VISIT HIGH/URGE NT SEVERITY EMERGENCY 42217 [facility] 4 4 BRENT DEPARTMEN EMERGENCY T VISIT PHYS HIGH/URGE NT SEVERITY HOSPITAL NINI - 4 4 [facility] OUTPATIEN INC T EMERGENCY 02536 INDIRA CARVAJAL 4 4 DEPARTMEN T VISIT MODERATE SEVERITY OFFICE 19861 FAMILY OUTPATIEN 4 4 CARE T VISIT ASSOCIATE 15 S MINUTES OFFICE 35682 MICHELA ABERNATHY OUTPATIEN 4 4 GRE GRE T NEW 45 MINUTES OFFICE 04932 ISATU Harris OUTPATIEN 4 4 G G T VISIT 15 MINUTES EMERGENCY 67080 INDIRA CARVAJAL 4 4 DEPARTMEN T VISIT MODERATE SEVERITY EMERGENCY 12072 HARDY DASH 4 4 BRO BRO DEPARTMEN T VISIT MODERATE SEVERITY HOSPITAL NINI - 4 4 [facility] OUTPATIEN INC T EMERGENCY 39068 NINI 4 4 [facility] DEPARTMEN INC T VISIT LIMITED/M INOR PROB EMERGENCY 60663 YARELI KASIA YARELI KASIA 4 4 DEPARTMEN T VISIT MODERATE SEVERITY HOSPITAL NINI - 4 4 [facility] OUTPATIEN INC T HOSPITAL NINI - 4 4 [facility] OUTPATIEN INC T OFFICE 48701 FAMILY OUTPATIEN 4 4 CARE T VISIT ASSOCIATE 15 S MINUTES OFFICE 51254 FAMILY OUTPATIEN 4 4 CARE T VISIT ASSOCIATE 15 S MINUTES OFFICE 04638 MULBERRY MULBERRY OUTPATIEN 4 4 TYRON TYRON T VISIT 15 MINUTES EMERGENCY 60566 NIXON NIXON 4 4 MADDIE MADDIE DEPARTMEN T VISIT HIGH/URGE NT SEVERITY OFFICE 53022 ISATU Harris OUTPATIEN 4 4 G G T VISIT 15 MINUTES OFFICE 85803 MULBERRY MULBERRY OUTPATIEN 3 3 TYRON TYRON T VISIT 10 MINUTES OFFICE 15205 NINI TERRAZAS OUTPATIEN 3 3 [facility] T [address] MINUTES OFFICE 88206 FAMILY OUTPATIEN 3 3 CARE T VISIT ASSOCIATE 15 S MINUTES EMERGENCY 67935 NIXON NIXON 3 3 MADDIE MADDIE DEPARTMEN T VISIT MODERATE SEVERITY OFFICE 49415 FAMILY OUTPATIEN 3 3 CARE T VISIT ASSOCIATE 15 S MINUTES OFFICE 29632 FAMILY OUTPATIEN 3 3 CARE T VISIT ASSOCIATE 15 S MINUTES OFFICE 42221 FAMILY OUTPATIEN 3 3 CARE T VISIT ASSOCIATE 15 S MINUTES OFFICE 57033 ISATU Harris OUTPATIEN 3 3 G G T VISIT 15 MINUTES OFFICE 54845 MULBERRY MULBERRY OUTPATIEN 3 3 TYRON TYRON T VISIT 15 MINUTES OFFICE 26028 FAMILY OUTPATIEN 3 3 CARE T VISIT ASSOCIATE 15 S MINUTES OFFICE 16466 FAMILY OUTPATIEN 3 3 CARE T VISIT ASSOCIATE 15 S MINUTES OFFICE 45309 MULBERRY MULBERRY OUTPATIEN 3 3 TYRON TYRON T VISIT 15 MINUTES OFFICE 72583 FAMILY OUTPATIEN 3 3 CARE T VISIT ASSOCIATE 15 S MINUTES OFFICE 20580 FAMILY OUTPATIEN 3 3 CARE T VISIT ASSOCIATE 15 S MINUTES EMERGENCY 71405 NIXON NIXON 3 3 MADDIE MADDIE DEPARTMEN T VISIT MODERATE SEVERITY HOSPITAL NINI - 3 3 [facility] T EMERGENCY 94895 NINI 3 3 [facility] DEPARTMEN INC T VISIT LOW/MODER SEVERITY OFFICE 64965 FAMILY OUTPATIEN 3 3 CARE T VISIT ASSOCIATE 15 S MINUTES HOSPITAL NINI - 3 3 [facility] T EMERGENCY 08022 NINI 3 3 [facility] DEPARTMEN INC T VISIT LOW/MODER SEVERITY EMERGENCY 59926 NIXON ALICEA 3 3 [facility] DEPARTMEN T VISIT MODERATE SEVERITY OFFICE 34153 MULBERRY MULBERRY OUTPATIEN 3 3 TYRON TYRON T VISIT 15 MINUTES OFFICE 04776 MULBERRY MULBERRY OUTPATIEN 3 3 TYRON TYRON T VISIT 15 MINUTES OFFICE 65057 BIBIANA BIBIANA OUTPATIEN 3 3 R H R H T VISIT 15 MINUTES HOSPITAL NINI - 3 3 [facility] OUTPATIEN INC T OFFICE 95885 FAMILY OUTPATIEN 3 3 CARE T VISIT ASSOCIATE 15 S MINUTES OFFICE 14602 FAMILY OUTPATIEN 2 2 CARE T VISIT ASSOCIATE 15 S MINUTES OFFICE 05188 FAMILY OUTPATIEN 2 2 CARE T VISIT ASSOCIATE 15 S MINUTES EMERGENCY 21291 NIXON ALICEA 2 2 [facility] DEPARTMEN T VISIT MODERATE SEVERITY HOSPITAL NINI - 2 2 [facility] T EMERGENCY 40112 NINI 2 2 [facility] DEPARTMEN INC T VISIT LIMITED/M INOR PROB OFFICE 55852 BIBIANA BIBIANA OUTPATIEN 2 2 R H R H T VISIT 15 MINUTES OFFICE 63043 ISATU Harris OUTPATIEN 2 2 G G T VISIT 15 MINUTES HOSPITAL NINI - 2 2 [facility] T EMERGENCY 80576 NIXON ALICEA 2 2 [facility] DEPARTMEN T VISIT MODERATE SEVERITY EMERGENCY 81891 NINI 2 2 [facility] T VISIT LOW/MODER SEVERITY OFFICE 51501 FAMILY OUTPATIEN 2 2 CARE T VISIT ASSOCIATE 15 S MINUTES OFFICE 23425 BIBIANA BIBIANA OUTPATIEN 2 2 R H R H T VISIT 15 MINUTES EMERGENCY 06373 NIXON ALICEA 2 2 [facility] DEPARTMEN T VISIT MODERATE SEVERITY EMERGENCY 37792 NINI 2 2 [facility] DEPARTMEN INC T VISIT LIMITED/M INOR PROB HOSPITAL NINI - 2 2 [facility] OUTPATIEN INC T OFFICE 45870 FAMILY OUTPATIEN 2 2 CARE T VISIT ASSOCIATE 15 S MINUTES HOSPITAL NINI - 2 2 [facility] OUTPATIEN INC T EMERGENCY 23035 NINI 2 2 [facility] DEPARTMEN INC T VISIT LOW/MODER SEVERITY HOSPITAL NINI - 2 2 [facility] OUTPATIEN INC T EMERGENCY 57062 MICHELA CARVAJAL 2 2 EMERGENCY DEPARTMEN SERVICES T VISIT HIGH/URGE NT SEVERITY EMERGENCY 60471 MICHELA PAT 2 2 EMERGENCY CLAY DEPARTMEN SERVICES T VISIT MODERATE SEVERITY EMERGENCY 05855 NINI 2 2 [facility] DEPARTMEN INC T VISIT MODERATE SEVERITY EMERGENCY 34790 NIXON ALICEA 2 2 [facility] DEPARTMEN T VISIT HIGH/URGE NT SEVERITY HOSPITAL NINI - 2 2 [facility] OUTPATIEN INC T OFFICE 46193 FAMILY OUTPATIEN 2 2 CARE T VISIT ASSOCIATE 15 S MINUTES OFFICE 53176 FAMILY OUTPATIEN 2 2 CARE T VISIT ASSOCIATE 15 S MINUTES EMERGENCY 76011 MICHELA ALICEA 2 2 EMERGENCY [facility] DEPARTMEN SERVICES T VISIT MODERATE SEVERITY HOSPITAL NINI - 2 2 [facility] T EMERGENCY 41692 NINI 2 2 [facility]/MODER SEVERITY EMERGENCY 44524 NINI 2 2 [facility] MODERATE [facility]VERITY HOSPITAL NINI - 2 2 [facility] OUTPATIEN INC T HOSPITAL NINI - 2 2 [facility] OUTPATIEN INC T OFFICE 32999 STRAWZELL STRAWZELL OUTPATIEN 2 2 CRI CRI T VISIT 15 MINUTES OFFICE 23547 STRAWZELL STRAWZELL OUTPATIEN 2 2 CRI CRI T VISIT 15 MINUTES HOSPITAL NINI - 2 2 [facility] OUTPATIEN INC T OFFICE 32254 STRAWZELL STRAWZELL OUTPATIEN 2 2 CRI CRI T VISIT 15 MINUTES OFFICE 15515 MULBERRY MULBERRY OUTPATIEN 2 2 TYRON TYRON T VISIT 15 MINUTES EMERGENCY 85460 MICHELA ALICEA 2 2 EMERGENCY [facility] T VISIT MODERATE SEVERITY EMERGENCY 45055 NINI 2 2 [facility] DEPARTMEN INC T VISIT LOW/MODER SEVERITY HOSPITAL NINI - 2 2 [facility] OUTPATIEN INC T OFFICE 12315 FAMILY BIBIANA OUTPATIEN 1 1 CARE R H T VISIT ASSOCIATE 15 S MINUTES OFFICE 65041 STRAWZELL STRAWZELL OUTPATIEN 1 1 CRI CRI T VISIT 15 MINUTES HOSPITAL NINI - 1 1 [facility] OUTPATIEN INC T OFFICE 15779 [facility] OUTPATIEN 1 1 CRI CRI T VISIT 15 MINUTES EMERGENCY [id number] JANAE JOSE F CARDOSO JOSE F 1 1 DEPARTMEN T VISIT HIGH/URGE NT SEVERITY EMERGENCY 31708 NINI 1 1 [facility] DEPARTMEN INC T VISIT LOW/MODER SEVERITY HOSPITAL NINI - 1 1 [facility] OUTPATIEN INC T OFFICE [id number] FAMILY [facility]IB[place]NA OUTPATIEN 1 1 CARE R H T VISIT ASSOCIATE 15 S MINUTES OFFICE 70536 FAMILY [place] OUTPATIEN 1 1 CARE R H T VISIT ASSOCIATE 25 S MINUTES HOSPITAL NINI - 1 1 [facility] INPATIENT [facility] EM[facility] 26381 [facility] T VISIT LOW/MODER SEVERITY EMERGENCY 16916 MICHELA ALICEA 1 1 EMERGENCY [facility] DEPARTMEN SERVICES T VISIT HIGH/URGE NT SEVERITY HOSPITAL NINI - 1 1 [facility] OUTPATIEN INC T EMERGENCY 47173 MICHELA POWER 1 1 EMERGENCY III CLAY DEPARTMEN SERVICES T VISIT MODERATE SEVERITY HOSPITAL NINI - 1 1 [facility] OUTPATIEN INC T EMERGENCY 02432 NINI 1 1 [facility] T VISIT LIMITED/M INOR PROB HOSPITAL NINI - 1 1 [facility] 88565 MICHELA CARDOSO JOSE F 1 1 EMERGENCY DEPARTMEN SERVICES T VISIT MODERATE SEVERITY EMERGENCY 99958 NINI 1 1 [facility] LOW/MODER SEVERITY OFFICE 09981 FAMILY MULBERRY OUTPATIEN 1 1 CARE TYRON T VISIT ASSOCIATE 15 S MINUTES EMERGENCY 01795 MICHELA TINAJERO 1 1 EMERGENCY DEPARTMEN SERVICES T VISIT HIGH/URGE NT SEVERITY EMERGENCY 60364 NINI 1 1 [facility] T VISIT LOW/MODER SEVERITY HOSPITAL NINI - 1 1 [facility] INC T EMERGENCY 50877 MICHELA ALICEA 1 1 EMERGENCY [facility] DEPARTMEN SERVICES T VISIT HIGH/URGE NT SEVERITY EMERGENCY 63632 NINI 1 1 [facility] DEPART[facility] INC T VISIT LOW/MODER SEVERITY [facility]OSPITAL NINI - 1 1 [facility] OUT[facility] INC T EMERGENCY 77359 NINI 0 0 [facility] DEPARTMEN INC T VISIT LOW/MODER SEVERITY HOSPITAL NINI - 0 0 [facility] OUT[facility] INC T EMERGENCY 82796 MICHELA POWER 0 0 EMERGENCY III [facility] DEPARTMEN SERVICES T VISIT MODERATE SEVERITY EMERGENCY 02868 NINI 0 0 [facility] DEPARTMEN INC T VISIT LOW/MODER SEVERITY [facility]OSPITAL NINI - 0 0 [facility] OUTPAT[facility] INC T OFFICE 87678 FAMILY [place] OUTPATIEN 0 0 CARE R H T VISIT ASSOCIATE 15 S MINUTES OFFICE 97505 FAMILY ISATU J OUTPATIEN 0 0 CARE T VISIT ASSOCIATE 15 S MINUTES EMERGENCY 55079 MICHELA TINAJERO 0 0 EMERGENCY DEPARTMEN SERVICES T VISIT MODERATE SEVERITY [facility]OSPITAL NINI - 0 0 [facility] INC T EMERGENCY 31464 NINI 0 0 [facility] DEPARTMEN INC T VISIT LIMITED/M INOR PROB EMERGENCY 02361 NINI 0 0 [facility] DEPARTMEN INC T VISIT MODERATE SEVERITY HOSPITAL NINI - 0 0 [facility] OUTPATIEN INC T EMERGENCY 76835 NINI 0 0 [facility] DEPARTMEN INC T VISIT LOW/MODER SEVERITY EMERGENCY 35625 MICHELA NIXON DEPT 0 0 EMERGENCY [facility] VISIT SERVICES HIGH SEVERITY& THREAT [facility] NINI - 0 0 [facility] OUTPATIEN INC T EMERGENCY 14707 MICHELA MURILLO 0 0 EMERGENCY [facility] T VISIT MODERATE SEVERITY EMERGENCY 46568 NINI 0 0 [facility] DEPARTMEN INC T VISIT LOW/MODER SEVERITY [facility]OSPITAL NINI - 0 0 [facility] OUTPATIEN INC T OFFICE 94966 Steven MEJÍA OUTPATIEN 0 0 CARE G T VISIT ASSOCIATE 15 S MINUTES HOSPITAL NINI - 0 0 [facility] OUTPATIEN INC T OFFICE 63208 [facility] 9 9 [facility] [place] A T VISIT 10 MINUTES EMERGENCY 76902 MICHELA ALICEA, 9 9 EMERGENCY [facility] SERVICES T VISIT MODERATE ASSOCIATE SEVERITY S HOSPITAL NINI - 9 9 [facility] OUTPATIEN INC T EMERGENCY 11602 NINI 9 9 [facility] DEPARTMEN INC T VISIT LOW/MODER SEVERITY EMERGENCY 27986 MICHELA ALICEA, 9 9 EMERGENCY [facility] SERVICES T VISIT MODERATE ASSOCIATE SEVERITY S EMERGENCY 38153 NINI 9 9 [facility] DEPARTMEN INC T VISIT LIMITED/M INOR PROB HOSPITAL NINI - 9 9 [facility] OUTPATIEN INC T EMERGENCY 06300 [facility], [address] [facility] EM[facility]GENC[facility] T VISIT PHYS INC LOW/MODER SEVERITY EMERGENCY 07485 LALITHA ELLIOTT, 8 8 [facility] T VISIT ON MODERATE SEVERITY EMERGENCY 34727 NINI 8 8 [facility] DEPARTMEN INC T VISIT LOW/MODER SEVERITY [facility]OSPITAL NINI - 8 8 [facility] OUTPATIEN INC T [facility]OSPITAL NINI - 8 8 [facility] OUTPAT[facility] INC T EMERGENCY 57784 NINI 8 8 [facility] DEPARTMEN INC T VISIT MODERATE SEVERITY OFFICE 86277 AMBROSE ARAUJO 8 8 CARE ANDREW Parker T VISIT ASSOCIATE 15 S MINUTES OFFICE 65883 AMBROSE YATES 8 8 CARE Hope COSTELLO T VISIT ASSOCIATE 15 S MINUTES
--- OUTSIDE RECORDS SUMMARY | 2017-05-18 15:26 | External Medical Summary Rpt | CCD ---
Author Author , [employer] Organization [employer] Address Unknown Phone [email or web address] Immunization Name Date Rout CVX Reac Dose Comm Prov Is Faci e tion ent ider Refu lity Give sed n Infl 03-1 140 0.5 Hist [facility] No [facility] 5-20 mL oric NADIA AID0 a, 17 al AYMA 3938 P-Fr Info N ee rmat ion - Sour ce Unsp ecif ied Tdap 11-2 115 999 Hist H149 No H149 , 2-20 oric Adso 13 al rbed Info rmat ion - Sour ce Unsp ecif ied Td 03-1 Intr 9 999 Hist H149 No H149 (lisbeth 0-19 amus oric lt), 97 cula al r Info adso rmat rbed ion - Sour ce Unsp ecif ied
--- OUTSIDE RECORDS SUMMARY | 2017-05-18 15:26 | External Medical Summary Rpt ---
Author Author [employer] Yarbrough, [employer] Organization [employer] Address Unknown Phone Unavailable
--- OUTSIDE RECORDS SUMMARY | 2017-05-18 15:26 | External Medical Summary Rpt | CCD ---
Author Author , [facility] Organization [employer] Address Unknown Phone [email or web address] Immunization Name Date Rout CVX Reac Dose [...]
== END 2017-05-12 16:08 | disposition home or self-care (01) ==
LOC: UTC 15:14
DX: J06.9 Acute upper respiratory infection, unspecified (principal); F17.210 Nicotine dependence, cigarettes, uncomplicated

== ENCOUNTER 2017-07-07 12:48 | Emergency (ER) | payer MEDICARE, MEDICAID ==
[~2017-07-07] VITALS: Ht 182.9 cm; Wt 79.0 kg
[~2017-07-07 12:48] MED LIST changes: +BROMFED DM COU118 ML PO
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
--- OUTSIDE RECORDS SUMMARY | 2017-07-07 13:00 | External Medical Summary Rpt | CCD ---
Author Author , DEYA Organization DEYA Address Unknown Phone [email or web address] Care Team Providers Care Director International Name Role Phone ALFARIS MOH, ALFARIS Unavailable [...] Unavailable Unavailable ASSOC[facility], [facility] [place] Unavailable Unavailable [facility] Unavailable Unavailable CENTER, [facility] Unavailable Unavailable INC, [facility] Unavailable Unavailable HOSPITAL, [facility] Unavailable Unavailable [facility], Unavailable Unavailable [facility] Un[facility], [facility] Un[facility], [facility], HUYNH Unavailable Unavailable [facility], Unavailable Unavailable [facility] Unavailable Unavailable SERVICES, [facility] Un[facility]available [facility], [facility] MONGABDULL[facility]I FRA, Unavailable Unavailable ALEJANDRA FRA [facility] [...] [facility]ARM #[id number] [facility] Unavailable Unavailable [id number] # [id number], [facility] [id number] # [id number] [facility], [facility] Unavailable Unavailable [facility], [facility], Unavailable Unavailable [facility] Unavailable Unavailable DEPT [facility], [facility] INDIRA CARVAJAL, INDIRA CARVAJAL Unavailable Unavailable Purpose Continuity of Care Document - 10-30-2007 through 2016 Problems Code Diagnosis DOS Provider Status 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 04-19-2017 [facility] EUSTACHIAN TUBE BILATERAL R109 UNSPECIFIED 04-03-2017 [facility]BDOM[facility]AL [facility] PAIN [facility] K439 VENTRAL 03-29-2017 [facility] WITHOUT INC OBSTRUCTION OR GANGRENE Z720 TOBACCO USE 03-29-2017 [facility] INC 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 SEROUS PHYSICIANS OTITIS GROUP MEDIA BILATERAL H7011 CHRONIC 10-26-[address] 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 CERUMEN PHYSICIANS BILATERAL GROUP H6692 OTITIS 09-14-2016 [facility] MEDIA ANESTH OF UNSPECIFIED THE BLUE LEFT EAR H6593 UNSPECIFIED 09-07-[address] [facility] PHYSICIANS NONSUPPRATI GROUP VE OTITIS MEDIA BILATERAL [id number] LAC W/O FB 08-22-2016 [facility] LT EYELID & [facility] PERIOCULAR INC AREA INIT ENC M5349DQ LACERATION 08-22-2016 [facility] W/O FB PHYSICIANS, OTHER PART PLLC HEAD INITIAL ENC J209 ACUTE 07-07-2016 [facility] BRONCHITIS [facility] UNSPECIFIED INC S11192S STRAIN 06-12-2016 [facility] TENDON FRONT WALL THORAX INIT F16476 STIFFNESS 06-02-2016 [facility] OF ASSOCIATES UNSPECIFIED HAND NEC R319 HEMATURIA 06-02-2016 [facility] UNSPECIFIED ASSOCIATES [id number] STRAIN 06-02-2016 [facility] ADDUCTOR [facility] MUSC FASC TEND RT THIGH INIT ENC Y10661D LACERATION 05-25-2016 [facility] W/O FOREIGN ASSOCIATES BODY LT HAND SUBSQBT ENC G06144 PAIN IN 05-04-2016 [facility] LEFT MEDICAL FINGERS [facility] ASS S66003L UNSPECIFIED 05-04-2016 [facility] SPRAIN LT PHYSICIANS, THUMB PLLC INITIAL ENCOUNTER A2793VI UNSPECIFIED 05-04-2016 [facility] INJURY LT MEDICAL WRIST HAND IMAGING ASS [...] [facility] FOR REMOVAL ASSOCIATES OF SUTURES L06086I LACERATION 03-16-2016 [facility] W/O FOREIGN PHYSICIANS, BODY LT PLLC HAND INITIAL ENC H6690 OTITIS 02-24-[address] [facility] MEDIA PHYSICIANS UNSPECIFIED GROUP UNSPECIFIED EAR H7291 UNS 02-03-[address] [facility] PERFORATION PHYSICIANS OF GROUP TYMPANIC MEMBRANE RIGHT EAR J310 CHRONIC 02-03-[address] 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 R0781 PLEURODYNIA 01-12-2016 [facility] J189 PNEUMONIA 11-30-2015 [facility] UNSPECIFIED PHYSICIANS, ORGANISM PLLC R05 COUGH 11-30-2015 [facility] R071 CHEST PAIN 11-30-2015 [facility] R1013 EPIGASTRIC 11-30-2015 [facility] PAIN ASSOCIATES R918 OTHER 11-30-2015 [facility] NONSPECIFIC MEDICAL ABNORMAL IMAGING ASS FINDING OF LUNG FIELD J069 ACUTE UPPER 11-19-2015 [facility] RESPIRATORY INFECTION UNSPECIFIED B353 TINEA PEDIS 11-18-2015 PROGRESSIVE PODIATRY M2570 OSTEOPHYTE 11-18-2015 PROGRESSIVE UNSPECIFIED PODIATRY JOINT F30962 PAIN IN 11-18-2015 PROGRESSIVE RIGHT FOOT PODIATRY R52589 PAIN IN 11-18-2015 PRO[facility] LEFT FOOT PODIATRY K529 NONINFECTIV 11-09-2015 [facility] CARE E ASSOCIATES GASTROENTER ITIS & COLITIS UNS R350 FREQUENCY 10-30-2015 COM[facility] OF PHYSICIANS MICTURITION LA M2011 HALLUX 10-28-2015 [facility]QUIRED [facility] RIGHT FOOT M2012 HALLUX 10-28-2015 [facility] ACQUIRED IMAGING ASS LEFT FOOT X64112 OTHER 10-28-2015 [facility] OSTEONECROS IMAGING ASS IS LEFT FOOT H5319 OTHER 09-14-2015 [facility] SUBJECTIVE GRE VISUAL DISTURBANCE S [id number] FOREIGN 09-14-2015 [facility] BODY IN GRE CORNEA RT EYE INITIAL ENCOUNTER J0190 ACUTE 08-07-2015 [facility] SINUSITIS [facility] UNSPECIFIED INC K560 PARALYTIC 08-07-2015 [facility] ILEUS [facility] INC B001 HERPESVIRAL 07-23-2015 [facility] CARE VESICULAR ASSOCIATES DERMATITIS R300 DYSURIA 07-23-2015 [facility] R000 TACHYCARDIA 06-19-2015 [facility] UNSPECIFIED IM[facility]ING ASS R5381 OTHER 06-19-2015 [facility] 1104 DERMATOPHYT 03-30-2015 [facility] CARE OSIS OF ASSOCIATES FOOT 88836 ESOPHAGEAL 03-30-2015 [facility] REFLUX ASSOCIATES 7862 COUGH 12-09-2014 [facility] 7295 PAIN IN 11-18-2014 [facility] SOFT MEDICAL TISSUES OF IMAGING ASS LIMB 8194 INJURY 11-18-2014 [facility] OTHER AND MEDICAL UNSPECIFIED IMAGING ASS HAND EXCEPT FINGER 16616 DIARRHEA 10-22-2014 [facility] 14335 ABDOMINAL 10-22-2014 [facility] PAIN, ASSOCIATES UNSPECIFIED SITE 56867 OTHER CHEST 10-17-2014 [facility] PAIN [facility] INC 48619 ACUTE 10-16-2014 [facility] SEROUS [facility] MEDIA 72516 UNS 08-12-2014 [facility] GASTR[facility] SERV ASTRODUOWorkboard FOUNDATION IS W/O MENTION HEMORR 6807 CARBUNCLE 07-27-[address] [facility] AND PHYSICIANS FURUNCLE OF GROUP FOOT 0549 HERPES 07-14-[address] [facility] SIMPLEX PHYSICIANS WITHOUT GROUP MENTION OF COMPLICATIO N 03234 ATROPHIC 06-24-2014 [facility] WITHOUT MENTION OF HEMORRHAGE 83699 DUODENITIS 06-24-2014 [facility] WITHOUT LLC MENTION OF HEMORRHAGE 5379 UNSPECIFIED 06-24-2014 [facility] DISORDER [facility] OF STOMACH INC AND DUODENUM 49368 ABDOMINAL 06-24-2014 [facility] PAIN, [facility] GENERALIZED INC 5259 UNSPECIFIED 05-09-2014 [facility] TEETH&SUPPO PHYS RTING STRUCTURES 24744 ABDOMINAL 04-21-2014 [facility] PAIN, [facility] EPIGASTRIC INC 5589 OTH&UNSPEC 03-23-2014 [facility] NONINFECTIO US GASTROENTER ITIS&COLITI S 4739 UNSPECIFIED 03-11-2014 [facility] SINUSITIS N EMERGENCY PHYS 19640 VOMITING 03-11-2014 [facility] ALONE N EMERGENCY PHYS 9144 HND NO FNGR 03-09-2014 INDIRA CARVAJAL ALONE INSECT BITE NONVNOM W/O INF 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 95468 CORTICAL 02-26-2014 [facility] SENILE GRE CATARACT 08827 UNSPECIFIED 02-26-2014 [place] [address] OTHER 02-26-2014 [facility] VITREOUS GRE OPACITIES 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 E9288 OTHER 01-30-2014 INDIRA CARVAJAL ACCIDENT 3829 UNSPECIFIED 01-29-2014 TONY CARVAJAL OTITIS MEDIA 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 4778 ALLERGIC 01-20-2014 [facility] RHINITIS [facility] DUE TO INC OTHER ALLERGEN 4779 ALLERGIC 01-20-2014 DASH BRO RHINITIS CAUSE UNSPECIFIED 3813 OTHER&UNSPE 12-19-2013 M[facility] C CHRONIC FRA NONSUPPURAT ТАТЬЯНА OTITIS MEDIA 24167 DYSFUNCTION 12-19-2013 MONG[facility]ARDO OF FRA EUSTACHIAN TUBE 42120 UNSPECIFIED 12-19-2013 MONGIARDO CONDUCTIVE FRA HEARING LOSS 4293 CARDIOMEGAL 12-17-2013 ERIC Y SARANYA V7283 OTHER 12-17-2013 [facility] SPECIFIED [facility] PRE-OPERATI INC VE EXAMINATION V720 EXAMINATION 12-16-2013 [facility] OF EYES GRE AND VISION 7336 TIETZES 11-04-2013 [facility] DISEASE [facility] 460 ACUTE 10-06-2013 [facility] NASOPHARYNG TYRON ITIS 5282 ORAL 10-04-2013 [facility] MADDIE APHTHAE 0091 COLITIS 09-10-2013 ISATU Abebe ENTERIT&GAS TROENTERIT INF ORIGIN 62940 FEVER 09-10-2013 ISATU Abebe UNSPECIFIED V5832 ENCOUNTER 07-04-2013 MUL[facility]Y FOR REMOVAL TYRON OF SUTURES 8700 LACERATION 06-27-2013 [facility] CO OF SKIN [facility] PERIOCULAR AREA 8820 OPEN WOUND 06-26-2013 FAMILY [...] 4660 ACUTE 09-25-2012 [place] H 34828 HEMOPTYSIS 09-25-2012 [place] [facility] UNSPECIFIED H 5285 DISEASES OF 07-30-2012 [facility] MADDIE LIPS 9191 OTH 06-11-2012 [facility] MX&UNSPEC ASSOCIATES SITES ABRASION/FR ICTION BURN INF 43513 UNSPECIFIED 05-23-2012 [facility] CELLULITIS [facility] AND INC ABSCESS OF TOE 69807 UNSPECIFIED 04-18-2012 [facility] PERFORATION OF TYMPANIC MEMBRANE 4619 ACUTE 04-18-2012 [facility] SINUSITIS, ASSOCIATES UNSPECIFIED 490 BRONCHITIS 04-18-2012 [facility] NOT ASSOCIATES SPECIFIED ACUTE OR CHRONIC 14149 OTHER 04-18-2012 [facility] INJURY OF ASSOCIATES CHEST WALL 43510 CHEST PAIN 04-10-2012 [facility] UNSPECIFIED [facility] IM[facility]ING ASS 62751 PAINFUL 04-10-2012 [facility] RESPIRATION [facility] INC 9599 INJURY 04-10-2012 [facility] OTHER AND MEDICAL UNSPECIFIED IMAGING ASS UNSPECIFIED SITE 4720 CHRONIC 04-02-2012 [place] RHINITIS H 43915 GROSS 04-02-2012 [place] HEMATURIA H 28363 OTHER 03-30-2012 [facility] DISEASES OF EMERGENCY NASAL SERVICES CAVITY AND SINUSES 514 PULMONARY 03-30-2012 [facility] CONGESTION [facility] HYPOSTASIS 58794 HEMATURIA 03-30-2012 [place] UNSPECIFIED EMERGENCY SERVICES 93643 MICROSCOPIC 03-30-2012 [facility] HEMATURIA [facility] INC 486 PNEUMONIA, 03-02-2012 [facility] ORGANISM [facility] UNSPECIFIED INC 73237 UNSPECIFIED 01-21-2012 [facility] DENTAL [facility] CARIES INC 15867 ACUTE 01-21-2012 [facility] GINGIVITIS [facility] PLAQUE INC INDUCED 6824 CELLULITIS& 01-16-2012 [facility] ABSCESS OF EMERGENCY HAND EXCEPT SERVICES FINGERS&[place] [address] SWELLING OF 01-16-2012 [facility] LIMB [facility] 71465 NAUSEA 12-20-2011 [facility] ALONE [facility] 64431 ABDOMINAL 12-20-2011 [facility] PAIN RIGHT MEDICAL UPPER IMAGING ASS QUADRANT 35753 NAUSEA WITH 12-19-2011 [facility] VOMIT[facility] 496 CHRONIC 12-05-[address] [facility] [address] CRI OBSTRUCTION NEC 6929 CONTACT 09-02-2011 [facility] DERMATITIS& EMERGENCY OTHER SERVICES ECZEMA DUE UNSPEC CAUSE 5110 PLEURISY 08-04-2011 [facility] WITHOUT ASSOCIATES MENTION EFFUS/[place] [address] METHICILLIN 03-03-2011 [facility] RESISTANT ASSOCIATES STAPHYLOCOC CUS AUREUS 9140 HAND NO 12-28-2010 [facility] FINGER [facility] ALONE INC ABRAS/FRIC BURN W/O INF 7821 RASH AND 10-28-2010 MEDICAL OTHER DIAGNOSTIC NONSPECIFIC LAB LLC SKIN ERUPTION 7881 DYSURIA 10-28-2010 [facility] 52000 OTHER 10-27-2010 [facility] SPECIFIED EMERGENCY DISORDER OF SERVICES PENIS 4659 ACUTE URIS 06-12-2010 [place] OF EMERGENCY UNSPECIFIED SERVICES SITE 0539 HERPES 05-26-2010 [facility] ZOSTER ASSOC[facility]ATES WITHOUT MENTION OF COMPLICATIO N 6820 CELLULITIS 05-18-2010 [place] AND ABSCESS EMERGENCY OF FACE SERVICES 8470 NECK SPRAIN 03-14-2010 [place] AND STRAIN EMERGENCY SERVICES 8500 CONCUSSION 03-14-2010 [place] WITH [place] [address] OPEN WOUND 03-14-2010 [place] FACE UNSPEC EMERGENCY SITE SERVICES WITHOUT MENTION COMP 920 CONTUSION 03-14-2010 [place] OF FACE EMERGENCY SCALP AND SERVICES NECK EXCEPT EYE 08755 CONTUSION 02-01-2010 [place] OF THIGH EMERGENCY SERVICES E8261 PEDAL CYCLE 02-01-2010 [place] ACCIDENT EMERGENCY INJURING SERVICES PEDAL CYCLIST 462 ACUTE 09-20-2009 [facility] PHARYNGITIS ASSOCIATES 60140 ONYCHIA AND 09-20-2009 [facility] PARONYCHIA ASSOCIATES OF TOE 7241 PAIN IN 09-08-2009 [facility] THORACIC [facility] SPINE IMAGING ASSOCIATES 7242 LUMBAGO 09-08-2009 [facility] 7245 UNSPECIFIED 09-08-2009 [facility] BACKACHE [facility] INC 8830 OPEN WOUND 11-14-2008 [facility] FINGER N EMERGENCY WITHOUT PHYS INC MENTION COMPLICATIO N E918 CAUGHT 11-14-2008 [facility] ACCIDENTALL N EMERGENCY Y IN OR PHYS INC BETWEEN OBJECTS 36804 ERYTHEMA 06-15-2008 [facility] DUE TO BURN MEM [...] 02 14 7 RI 87 GA Ac ME 86 -1 -1 .0 TE 10 IN ti OF 20 7- 7- 00 28 EY ve LO 07 20 20 AI XA 70 11 11 D PR CI 1 PH CH N AR AE HC MA L L CY S 50 0 03 MG 93 8 TA # B 03 93 BE 65 02 02 15 5 RI 87 GA Ac NZ 16 -1 -1 .0 TE 10 IN ti ON 20 7 7 29 EY ve AT 53 20 20 AI AT 61 11 11 D PR E 0 PH CH 10 AR AE 0 MA L MG CY S CA 03 PS 93 UL 8 E # 03 93 ME 00 02 02 21 6 RI 87 GA Ac TH 60 -1 -1 .0 TE 10 IN ti YL 34 7- 7- 00 31 EY ve ME 59 20 20 AI ED 31 11 11 D PR NI 5 PH CH SO AR AE [...] 34 0- 0- 00 87 N ve ME 59 20 20 AI BA ED 31 [...] 34 1- 1- 00 57 LE ve ME 59 20 20 AI ET ED 31 [...] 34 1- 1- 00 42 LE ve ME 59 20 20 AI ET ED 31 [...] 34 3- 4- 00 25 EY ve ME 59 20 20 AI ED 31 10 10 D PR NI 5 PH CH SO AR AE LO MA L NE CY S 4 03 MG 93 8 DO # SE 03 PK 93 CE 00 09 09 21 7 RI 84 GA Ac PH 14 -1 -1 .0 TE 99 IN ti AL 39 3- 4- 00 26 EY ve EX 89 20 20 AI IN 70 10 10 D PR 1 PH CH 50 AR AE 0 [...] LL Y CA C PS UL E ME 68 04 04 0 6. 2 CL [...] 00 60 30 CL 21 MCELROY Ac ME 74 -0 -1 .0 IN 00 MM [...] D ZA 71 10 10 PH KA ME 0 AR TH IN MA AR E CY IN 10 E Y MG TA BL ET NA 53 12 12 00 60 30 CL 20 MCELROY Ac ME 74 -0 -1 .0 IN 59 MM [...] 34 5- 4- 00 22 EY ve ME 59 20 20 AI ED 31 09 09 D PR NI 5 PH CH SO AR AE LO M L NE #3 S 4 93 8 MG DO SE PK DO 00 09 09 00 14 7 RI 80 GA Ac XY 14 -1 -2 .0 TE 02 IN ti CY 33 5- 4- 00 21 EY ve CL 14 20 20 AI IN 20 09 09 D PR E 5 PH CH HY AR AE [...] 6 AR MA HE CY NR Y ME 00 12 12 00 60 3 CL [...] 00 40 20 RI 71 No Ac ME 09 -0 -2 .0 TE 92 t ti OX 30 9- 6- 00 98 Av ve EN 14 20 20 AI ai 90 08 08 D la 50 1 PH bl 0 AR e MG M #3 TA 93 BL 8 ET Procedures Procedure DOS Code Location Performer Comment [facility] 8604 NINI TERRAZAS INCISION 1 ED [facility] HOSP W/DRAINAG [facility] INC E SKIN&SUBC UTANEOUS TISSUE LINEAR 0881 NINI TERRAZAS REPAIR OF 0 [facility] INC LACERATIO N OF EYELID OR EYEBROW Encounters Encounter Start End Date Code Location Performer Type Date [facility] NINI Ochoa 7 7 [facility] NINI - 7 7 [facility] NINI - 7 7 [facility] NINI - 7 7 [facility] NINI - 7 7 [facility] NINI - 7 7 [facility] NINI - 7 7 [facility] NINI - 6 6 [facility] NINI - 6 6 [facility] NINI - 6 6 [facility] NINI - 6 6 [facility] NINI - 5 5 [facility] NINI - 5 5 [facility]PAT[facility] NINI - 5 5 [facility]PAT[facility] NINI - 4 4 [facility]PAT[facility] NINI - 4 4 [facility]PAT[facility] NINI - 4 4 [facility]PAT[facility] NINI - 4 4 [facility]PATI[facility] NINI - 4 4 [facility]PAT[facility] NINI - 4 4 [facility]PAT[facility] NINI - 4 4 [facility]PAT[facility] NINI - 3 3 [facility]PATI[facility] NINI - 3 3 [facility]PATI[facility] NINI - 3 3 [facility]PATIEN [facility] NINI - 2 2 [facility]PATIEN [facility] NINI - 2 2 [facility]PATIEN [facility] NINI - 2 2 [facility]PATI[facility] NINI - 2 2 [facility]PATI[facility] NINI - 2 2 [facility]PATIEN [facility] NINI - 2 2 [facility]PATIEN [facility] NINI - 2 2 [facility]PATIEN [facility] NINI - 2 2 [facility]PATIEN [facility] NINI - 2 2 [facility]PATIEN [facility] NINI - 2 2 [facility]PATIEN [facility] NINI - 2 2 [facility]PATI[facility] NINI - 1 1 [facility]PATIEN [facility] NINI - 1 1 [facility]PATIEN [facility] NINI - 1 1 [facility]PATIENT [facility] NINI - 1 1 [facility]PATIEN [facility] NINI - 1 1 [facility]PATIEN [facility] NINI - 1 1 [facility]PATI[facility] NINI - 1 1 [facility]PATI[facility] NINI - 1 1 [facility]PAT[facility] NINI - 0 0 [facility]PATI[facility] NINI - 0 0 [facility]PATI[facility] NINI - 0 0 [facility]PAT[facility] NINI - 0 0 [facility]PAT[facility] NINI - 0 0 [facility]PATI[facility] NINI - 0 0 [facility] NINI - 9 9 [facility] NINI - 9 9 [facility] NINI - 8 8 [facility] - 8 8 [facility]
--- OUTSIDE RECORDS SUMMARY | 2017-07-07 13:01 | External Medical Summary Rpt | CCD ---
Author Author , DEYA Organization DEYA Address Unknown Phone [email or web address] Immunization Name Date Rout CVX Reac Dose [...]
--- OUTSIDE RECORDS SUMMARY | 2017-07-07 13:01 | External Medical Summary Rpt | CCD ---
Author Author , DEYA Organization DEYA Address Unknown Phone [email or web address] Immunization Name Date Rout CVX Reac Dose [...]
[2017-07-07] MEDS ORDERED: MOTRIN 400MG.400 MG PO (13:32)
[2017-07-07] MEDS ORDERED: AUGMENTIN 875-1 EACH PO (13:32)
--- NOTE | 2017-07-07 13:32 | Urgent Treatment Center Report ---
History of Present Issue Date/Time Seen by Provider 07/07/17 1321 Visit Reason Pt arrived:Walked Presenting Problem:PT STATES HIS ALLERGIES ARE BOTHERING HIM AND BOTH FEET ARE HURTING Location if Accident: Onset of symptoms date/time:07/07/1709/22/899 or onset unknown for: Have you (or family members/close friends) recently traveled outside the [place]? N If Yes, where/when: Have you had exposure to infectious disease within the past month? TB? Other? Specify: Patient state that he has been having pain and pressure in his sinuses State that his drainage went from clear to thick yellowish green States that he thought it was allergies but now thinks he has an infection. State that he has been standing alot on his feet and now having pain in both feet ALLERGIES Coded Allergies: No Known Allergies (09/14/16) Home Medications Active Scripts Azithromycin (Zithromycin (Z-AMINTA) 250MG Tab) 250 MG PO DAILY #6 TAB Prov: 04/20/17 Methylprednisolone (Medrol Dose Aminta) 4 MG PO UD #1 AMINTA Prov: 04/20/17 D-METHORPHAN HB/P-EPD HCL/BPM (Bromfed Dm Cough Syrup) 10 ML PO Q4HP PRN cough #120 SYR Prov: 05/12/17 History Medical History General CAD? No Angina: No DE: No Hypertension? No Hyperlipidemia? No CHF? No DVT? No PE? No COPD? No Asthma? No Anemia? No GERD? No Gastric ulcers? No GI Bleed? No Hernia? No Thyroid Problems? No Hypothyroidism? No CVA? No Seizures? No Diabetes? No UTI? Yes Stones? No BPH? No GB Disease: No Nephritic Syndrome? No Asplenia? No Hepatitis? No Sickle Cell Disease? No Arthritis? No Migraines? No Cataracts? No Glaucoma? No MRSA? Yes HIV? No TB? No Anxiety? No Depression? No Cancer? No More? No Immunization HX DT/Tetanus Unknown Flu Refused Pneumonia Never Had Surgical Hx Previous Surgery?Y LEFT HAND REPAIR TONGUE SX-STITCHES BILAT EAR TUBES ENDOSCOPY Family History Family HX Diabetes Yes CAD No Hypertension No Hyperlipidemia No Cancer No TB No Social History Smoking Hx Smoker: Current Every Day Smoker Tobacco: Yes Type Cigarettes Packs/day < 1 Pack Alcohol Alcohol: No Review of Systems All Other Systems Reviewed and Negative ENT nose congestion. Physical Exam Vital Signs Vital Signs Date Time Temp Pulse Resp B/P Pulse O2 O2 Flow FiO2 Ox Delivery Rate 07/07 1256 98.1 104 20 123/86 98 General Appearance normal appearance, WD/WN, no apparent distress Ear, Nose, Throat sinus pain/drainage, nasal congestion Respiratory Status Yes: trachea midline, chest symmetrical, non tender chest. No: respiratory distress. Lung Sounds bilateral: normal breath sounds, lungs clear. Cardiovascular normal exam, regular rate/rhythm, no peripheral edema Extremities non-tender, normal range of motion, normal inspection, normal capillary refill Neurologic alert, normal exam, oriented x 3 Medical Decision Making LABS/Meds/Orders Pt receiving controlled substance in ED? No Departure Departure Time of Disposition 1329 Disposition DC Home or Self Care(routine) Clinical Impression Primary Impression: Sinusitis Qualifiers: Sinusitis location: unspecified location Chronicity: unspecified Qualified Code: J32.9 - Chronic sinusitis, unspecified Condition STABLE Patient Instructions DI for Foot Pain, Sinus Headache, Sinusitis Additional Instructions Take medication as prescribed Return if needed When you are sitting down watching TV, elevate your feet Follow up with familyd doctor Discharge Counseling Counseled pt/family regarding diagnosis, medications/RX, home care, follow up needs Prescriptions Current Visit Scripts Amoxicillin/Potassium Clav (Augmentin 875-125 Tablet) 1 EACH PO BID #14 TAB Ibuprofen (MOTRIN 400MG) 400 MG PO Q6HP PRN pain #40 TAB at 1336
[2017-07-07 13:45] VITALS: BP 114/89
== END 2017-07-07 13:46 | disposition home or self-care (01) ==
LOC: UTC 12:48
DX: J32.9 Chronic sinusitis, unspecified (principal); M79.672 Pain in left foot; M79.671 Pain in right foot